=== PATIENT | male | born 1950 | race Caucasian/White ===

== ENCOUNTER 2020-05-06 08:14 | Inpatient (IN) ==
[2020-05-06] MEDS ORDERED: IOPAMIDOL 100 ML BOTTLE IV ONE (08:15)
[2020-05-06] MEDS ORDERED: IPRATROPIUM/ALBUTEROL 3 ML AMPUL.NEB NEB ONE (08:22)
--- NOTE | 2020-05-06 08:28 | Emergency Department Note ---
SOB HPI General Chief Complaint: Shortness of Breath/Dyspnea Stated Complaint: shortness of breath Time Seen by Provider: 05/06/20 08:21 Source: EMS Mode of arrival: EMS Limitations: no limitations History of Present Illness HPI Narrative: Narrative: 70-year-old male with COPD as well as spicules in his lung as well as neoplasms and restrictive lung disease presents the emergency department for shortness of breath. Said he did have a mild fever. He states that this is been going on for couple days slowly been getting worse. He is normally always on 6 L of oxygen nasal cannula and at night he goes to 8 L. He is told that he is not allowed to use COPD secondary to previously had one which caused a pneumothorax so due to his lung disease they are recommending against CPAP or BiPAP. Patient says that he also does not want to be intubated either. Patient by EMS was given albuterol treatment was doing better with that when they originally showed up they said he was 70% on his baseline which is at 6 L. They increased him to a nonrebreather and he was back to 90%. Patient said he normally is around 90 to 92% at baseline. He otherwise has no other complaints at this time said no cough congestion he has no chest pain just feels that he cannot catch his breath. Related Data Home Medications Medication Instructions Recorded Confirmed nitroglycerin 0.4 mg sublingual 0.4 mg SUBLINGUAL DIRECTED tab 12/20/18 04/23/20 tablet vitamin B complex 1 tab PO DIRECTED tab 12/20/18 04/23/20 ibuprofen 200 mg tablet 200 mg PO QDAY PRN tab 10/11/19 04/23/20 aspirin 81 mg tablet,delayed 81 mg PO BID tab 04/15/20 04/23/20 release Previous Rx's Medication Instructions Recorded Oxygen cylinder #1 ea 02/03/18 budesonide 0.5 mg/2 mL suspension 0.5 mg INHALATION BID #120 ml 07/28/19 for nebulization amlodipine 5 mg tablet See Rx Instructions .ROUTE 03/04/20 .COMPLEX #90 tab zolpidem 10 mg tablet 10 mg PO QHS PRN #30 tab 04/04/20 loperamide 2 mg tablet 2 mg PO Q6H PRN #60 tab 04/23/20 atenolol 100 mg tablet 50 mg PO BID #180 tab 04/29/20 atorvastatin 20 mg tablet 20 mg PO QHS #90 tab 04/29/20 losartan 100 mg tablet 100 mg PO QDAY #90 tab 04/30/20 umeclidinium 62.5 mcg-vilanterol 1 inh INHALATION QDAY #60 each 04/30/20 25 mcg/actuation powdr for inhalation Allergies Allergy/AdvReac Type Severity Reaction Status Date / Time No Known Drug Allergies Allergy Verified 04/23/20 09:46 Review of Systems ROS ROS Narrative: Narrative: All systems ED: reviewed and negative except as stated. PFSH Narrative Patient History Narrative: Narrative: Medical/Surgical/Family History All Active Problems (Updated 05/06/20 @ 08:28 by Александр Ruggiero DO) Diarrhea (Acute) Acute dyspnea (Acute) History of left hip replacement (Acute) History of surgery (Chronic) Pre-op examination (Acute) H/O hernia repair (Acute ~1957) History of tonsillectomy (Acute ~1956) Pneumothorax (Acute) Myocardial infarction (Chronic) Chronic respiratory insufficiency (Chronic) Pulmonary nodule (Chronic) Restrictive lung disease (Chronic) MRI of brain abnormal (Chronic) Hyperlipidemia (Chronic) Proteinuria (Chronic) Microalbuminuria (Chronic) Insomnia (Chronic) Right shoulder strain (Chronic) Hemorrhoids (Chronic) Smoker (Chronic) Bronchitis (Chronic) Lumbar back pain (Chronic) Malignant neoplasm of upper lobe, right bronchus or lung (Chronic) Actinic keratosis (Chronic) Impaired oxygenation (Chronic) COPD, severe (Chronic) Pain in left hip (Chronic) Diverticulosis of colon (without mention of hemorrhage) (Chronic) Adenomatous colon polyp (Chronic) Skin lesion (Chronic) Hypoxemia (Chronic) Asbestosis (Chronic) Asbestos exposure (Chronic) Right shoulder injury (Chronic 10/20/11) Metabolic syndrome (Chronic) CAD (coronary artery disease) (Chronic ~1995) History of myocardial infarction (Chronic) COPD (chronic obstructive pulmonary disease) (Chronic) Malignant neoplasm of upper lobe of right lung (Chronic) COPD with chronic bronchitis (Chronic) Medical History Actinic keratosis (Chronic) Adenomatous colon polyp (Chronic) Asbestos exposure (Chronic) Asbestosis (Chronic) Bronchitis (Chronic) CAD (coronary artery disease) (Chronic ~1995) Chronic respiratory insufficiency (Chronic) COPD (chronic obstructive pulmonary disease) (Chronic) COPD with chronic bronchitis (Chronic) COPD, severe (Chronic) Diverticulosis of colon (without mention of hemorrhage) (Chronic) Hemorrhoids (Chronic) High blood pressure (Chronic) History of myocardial infarction (Chronic) Hyperlipidemia (Chronic) Hypoxemia (Chronic) Impaired oxygenation (Chronic) Insomnia (Chronic) Lumbar back pain (Chronic) Malignant neoplasm of upper lobe of right lung (Chronic) Malignant neoplasm of upper lobe, right bronchus or lung (Chronic) Metabolic syndrome (Chronic) Microalbuminuria (Chronic) MRI of brain abnormal (Chronic) Myocardial infarction (Chronic) Oxygen dependent (Chronic) Pain in left hip (Chronic) Pneumonia (Resolved) Proteinuria (Chronic) Pulmonary nodule (Chronic) Restrictive lung disease (Chronic) Right shoulder injury (Chronic 10/20/11) full thickness tear Right shoulder strain (Chronic) Skin lesion (Chronic) Sleep apnea (Chronic) Smoker (Chronic) Surgical History H/O hernia repair (Acute ~1957) H/O repair of left rotator cuff (Resolved) H/O repair of right rotator cuff (Resolved) History of colonoscopy (Chronic 02/24/11) History of coronary artery stent placement (Chronic ~1995) right History of lobectomy of lung (Chronic ~05/2016) right side History of surgery (Chronic) Thoracoscopic apical bleb resection and talc pleurodesis - Dr. Anish Zepeda History of tonsillectomy (Acute ~1956) Hx of appendectomy (Resolved) Family History Mother , age 90-Dementia No problems noted. Social History Smoking Status: Light tobacco smoker Alcohol Intake Frequency: 0-2 drinks per day Substance Use: does not use Exam Narrative Narrative: Narrative: Vital signs noted General: Awake. Alert. No distress. Skin: Warm. Dry. No rash. HEENT: NCAT. PERRL. EOMI. No conjunctivitis. No nystagmus. No pharyngitis. Membranes moist. No otitis. No rhinitis. Neck: No PTP. Good ROM. No meningeal signs. No stridor. No thyromegaly. No JVD. Cardiovascular: RRR. No murmur. No rubs. No gallops. Respiratory: Mild respiratory distress diminished breath sounds bilaterally with wheezes throughout. Very diminished. Gastrointestinal: Abdomen soft. No tenderness. No distention. Normal bowel sounds. No palpable organomegaly or masses. Back: No deformity. No CVAT. Musculoskeletal: No tenderness. No swelling. No erythema. No edema. Good pe ripheral pulses x 4 Lymphatic: No palpable adenopathy. Neurological: No focal neurological deficits observed. General Limitations: no limitations Course Vital Signs Vital signs: Vital Signs Temperature 98.2 F 05/06/20 08:16 Pulse Rate 97 H 05/06/20 08:16 Respiratory Rate 40 H 05/06/20 08:16 Blood Pressure 124/70 05/06/20 08:16 Pulse Oximetry (%) 68 L 05/06/20 08:16 Temperature 98.2 F 05/06/20 08:16 Pulse Rate 97 H 05/06/20 08:16 Respiratory Rate 40 H 05/06/20 08:16 Blood Pressure 124/70 05/06/20 08:16 Pulse Oximetry (%) 79 L 05/06/20 08:21 MDM MDM Narrative Medical decision making narrative: Narrative: Patient most likely has COPD exacerbation I believe. He was down to 60% while getting up off the bed I did attempt to try his baseline he did not do well with that but we did place him on an oxygen mask 8 L and since that he has been all the way now to 88% which is probably baseline for him. I will give him 3 DuoNeb treatments they gave 1 albuterol in route. EKG was done has no acute findings. We will get basic labs as well we will look for pneumonia as well as do a Silvia test to check for COVID-19. I did reaffirm with the patient that he is a DO NOT INTUBATE and he also is not allowed to do CPAP or BiPAP for respiratory distress because it will cause pneumothorax. This was confirmed with patient so the only way now we troll this is despite increasing his oxygen with. Disposition will be pending results. Patient will be signed out to the daytime physician at the end of my shift so please refer to their note for further plan and disposition. Patient stable at time of signout. EKG Data EKG #1: EKG results narrative: EKG done at 0 820 interpreted by myself shows sinus rhythm 4. Is no acute ST changes no acute T wave changes no other signs of ischemia. No signs of hypertrophy, heart strain, heart block. No WPW/Brugada/HOCM. This is a poor EKG secondary to artifact but I do not see any ischemia. Discharge Plan Patient/Caregiver Discharge Instructions Pt seen by CONCESSIONIST/PA only: No Clinical Impression: Acute dyspnea Patient Disposition: Still a Patient Follow up with: Irish Garcia ARNP [Primary Care Provider] - Prescriptions: No Action loperamide [Imodium A-D] 2 mg tablet 2 mg PO Q6H PRN (Reason: loose stool) Qty: 60 RF: 0 (DME) Oxygen cylinder Qty: 1 RF: 12 budesonide 0.5 mg/2 mL suspension for nebulization 0.5 mg INHALATION BID Qty: 120 RF: 12 amlodipine 5 mg tablet See Rx Instructions .ROUTE .COMPLEX Qty: 90 RF: 1 zolpidem [Ambien] 10 mg tablet 10 mg PO QHS PRN (Reason: sleep) Qty: 30 RF: 2 atorvastatin 20 mg tablet 20 mg PO QHS Qty: 90 RF: 3 atenolol 100 mg tablet 50 mg PO BID Qty: 180 RF: 4 losartan 100 mg tablet 100 mg PO QDAY Qty: 90 RF: 4 umeclidinium 62.5 mcg-vilanterol 25 mcg/actuation powdr for inhalation 62.5-25 mcg/actuation blister with device 1 inh inhalation QDAY Qty: 60 RF: 3 vitamin B complex tablet 1 tab PO DIRECTED RF: 0 nitroglycerin [Nitrostat] 0.4 mg tablet, sublingual 0.4 mg SUBLINGUAL DIRECTED RF: 0 aspirin [Adult Low Dose Aspirin] 81 mg tablet,delayed release (DR/EC) 81 mg PO BID RF: 0 ibuprofen 200 mg tablet 200 mg PO QDAY PRNRF: 0
--- NOTE | 2020-05-06 09:06 | XRay Report ---
CLINICAL INFORMATION: dyspnea COMPARISON: 05/03/2019 FINDINGS: Moderate cardiomegaly is unchanged. Mediastinum and pulmonary vessels are normal. Large alveolar infiltrates in both mid and lower lungs are superimposed upon known underlying interstitial fibrosis. COPD changes with large bullae in the apical regions seen as before. Moderate right apical pleural fibrosis is again seen. There are small bilateral pleural effusions. Bilateral diaphragmatic calcifications noted. IMPRESSION: Large alveolar infiltrates in both mid/lower lungs superimposed upon known underlying moderate interstitial fibrosis and COPD. Small bilateral pleural effusions. Interpreted and Authenticated by: Ousmane Shields 05/06/20
[2020-05-06 09:13] LABS: Basophils # (Auto) 0.06 K/mcL (0.00-0.20); Basophils % (Auto) 0.6 % (0.0-2.0); Eosinophils # (Auto) 0.62 K/mcL (0.00-0.70); Eosinophils % (Auto) 5.7 % (0.0-7.0); Hematocrit 39.4 % (41.0-55.0); Hemoglobin 11.9 g/dL (13.5-16.5); Lymphocytes # (Auto) 0.92 K/mcL (1.50-4.80); Lymphocytes % (Auto) 8.5 % (15.0-49.0); Mean Cell Volume 96.8 fL (80.0-100.0); Mean Corpuscular HGB Conc 30.2 g/dL (31.0-36.0); Mean Platelet Volume 10.2 fL (7.4-10.4); Monocytes # (Auto) 0.83 K/mcL (0.10-0.90); Monocytes % (Auto) 7.6 % (1.0-12.0); Neutrophils % (Auto) 77.6 % (38.0-78.0); Platelet Count 326 K/mcL (140-440); RBC 4.07 M/mcL (4.50-5.90); Red Cell Distribution Width 13.9 % (11.5-14.5); WBC 10.9 K/mcL (4.5-11.0)
[2020-05-06 09:35] LABS: proBNP 348.9 pg/mL (<125.0)
[2020-05-06 09:39] LABS: ALT/SGPT 11 U/L (<40); AST/SGOT 21 U/L (<40); Albumin 3.2 gm/dL (3.2-5.2); Albumin/Globulin Ratio 0.7 (1.0-2.3); Alkaline Phosphatase 105 U/L (39-117); Bilirubin,Total 0.3 mg/dL (0.1-1.0); Blood Urea Nitrogen 23 mg/dL (8-23); Calcium 8.9 mg/dL (8.6-10.4); Carbon Dioxide 28 mmol/L (22-30); Chloride 100 mmol/L (96-108); Globulin 4.5 gm/dL (2.2-3.7); Glomerular Filtration Rate 76; Glucose 136 mg/dL (70-105)
[2020-05-06] MEDS ORDERED: AZITHROMYCIN 500 MG in DEXTROSE 5% IN WATER 250 ML IV ONE (10:00)
[2020-05-06] MEDS ORDERED: cefTRIAXone 2 GM in DEXTROSE 5% IN WATER 50 ML IV ONE (10:00)
--- NOTE | 2020-05-06 12:00 | Cat Scan Report ---
CLINICAL INFORMATION: Short of breath COMPARISON: None. TECHNIQUE: 80ml of Isovue-370 were injected intravenously. Using SmartPrep to maximize pulmonary artery opacification, .625mm helical slices were obtained from the lung apices through the lung bases. Following reconstruction, 2.5 mm sagittal, coronal, and axial reformations were processed. The exam was reviewed at mediastinal, lung, and bone windows. The exam was performed using radiation dose optimization techniques including, but not limited to, automated exposure control, adjustment of the mA and/or kV according to patient size and use of iterative reconstruction technique. FINDINGS: Mediastinal windows show the pulmonary arteries opacified - no evidence of embolus. The main pulmonary diameter is enlarged 3.3 cm suggesting mild pulmonary hypertension. The thoracic aorta is normal diameter with diffuse intimal thickening. The heart is moderately enlarged with scattered fibrofatty and calcific plaque in the coronary arteries. Esophagus is grossly normal. There are multiple moderately enlarged mediastinal lymph nodes including the inferior paraesophageal, subcarinal precarinal, AP window and peritracheal regions. They range up to 2.7 cm. Thyroid is mildly enlarged and inhomogeneous. Pulmonary parenchymal windows show moderate centrilobular and periseptal emphysema featuring chronic bronchitis with elevated lung volumes and dilatation/ wall thickening the bronchi including tubular and varicose bronchiectasis of the segmental and subsegmental bronchi throughout the lungs. A giant basilar bullae dominating the left lung apex. There are cluster of 4-5 bullae in the posterior left upper lobe ranging up to 6.1 cm. In addition, there are scattered regions of honeycombing fibrosis the periphery of both upper right middle and lower lobes. There is also moderate groundglass airspace disease throughout both lungs with denser alveolar infiltrates in the superior segment of the left lower lobe in the posterior segment of the left upper lobe. Scattered pleural calcifications noted. No effusions. Bones and soft tissues the chest wall show a moderate degenerative disc disease mid thoracic spine. Images should the superior abdomen show no abnormality. IMPRESSION: 1. No evidence of pulmonary embolus. 2. Moderate centrilobular and paraseptal emphysema. In addition to chronic bronchitis component, there are multiple tubular and varicose bronchiectatic segmental and subsegmental bronchi in both lungs - most prominent in both lower and right middle lobes. 3. Scattered regions of honeycombing in the periphery of both upper, right middle and lower lobes suggesting superimposed UIP. 4. Moderate alveolar infiltrates in the posterior segment left upper lobe and superior segment left lower lobe. Diffuse groundglass airspace disease is seen throughout both lungs with sparing of the right lung apex. This is likely infectious or inflammatory - chronicity unknown. 5. Moderate mediastinal and hilar adenopathy. These are likely reactive lymph nodes from lung inflammation Interpreted and Authenticated by: Ousmane Shields 05/06/20
--- NOTE | 2020-05-06 12:58 | Internal Med History&Physical ---
HPI History of Present Illness Patient information: Note initiated : 05/06/20 at 12:58 pm Service Date, if different from initiated Date: [] Patient: Jed Dias a 70 y/o M admitted on for SOB . Chief Complaint: Worsening shortness of breath and low oxygen History of present illness: Mr. Dias is a 70 year old M with a history of bullous emphysema managed by pulmonology Dr. Hays usually on 3 L oxygen who recently had a complicated hospitalization in February following a hip fracture and was hospitalized for 19 days recovering from pulmonary complications. He was discharged and has gradually been recovering until last evening started getting short of breath. His sats started dropping to 70s. He increased his oxygen to 6 L. This morning despite 160s oxygen his sats was in 60s and thereafter presents to the ER for evaluation. Initial work-up was consistent with acute COPD exacerbation and requiring 2 L oxygen to maintain sats. Patient deferred that due to bullous emphysema he would not want to be intubated or expose noninvasive ventilation due to risk of pneumothorax. He however wants medical management. Patient was started on antibiotic/steroid subsequently hospitalist service was consulted At the time of my evaluation patient is alert and oriented. He was able to answer most the questions. Endorses to history as above. Denies recent exposure to sick contacts including Covid. His Covid test today was negative.He denies fever, chills, diarrhea, rash, joint pain, myalgia, headache or photophobia. He endorses feeling productive sputum increasing purulence with cough, complains of difficulty voiding urine Review of systems A 10 point review system was performed and is negative except for ones discussed above PFSH PFSH All Active Problems (Updated 05/06/20 @ 13:02 by Bi Vela MD) Pneumonia (Acute) Diarrhea (Acute) Acute dyspnea (Acute) History of left hip replacement (Acute) History of surgery (Chronic) Pre-op examination (Acute) H/O hernia repair (Acute ~1957) History of tonsillectomy (Acute ~1956) Pneumothorax (Acute) Myocardial infarction (Chronic) Chronic respiratory insufficiency (Chronic) Pulmonary nodule (Chronic) Restrictive lung disease (Chronic) MRI of brain abnormal (Chronic) Hyperlipidemia (Chronic) Proteinuria (Chronic) Microalbuminuria (Chronic) Insomnia (Chronic) Right shoulder strain (Chronic) Hemorrhoids (Chronic) Smoker (Chronic) Bronchitis (Chronic) Lumbar back pain (Chronic) Malignant neoplasm of upper lobe, right bronchus or lung (Chronic) Actinic keratosis (Chronic) Impaired oxygenation (Chronic) COPD, severe (Chronic) Pain in left hip (Chronic) Diverticulosis of colon (without mention of hemorrhage) (Chronic) Adenomatous colon polyp (Chronic) Skin lesion (Chronic) Hypoxemia (Chronic) Asbestosis (Chronic) Asbestos exposure (Chronic) Right shoulder injury (Chronic 10/20/11) Metabolic syndrome (Chronic) CAD (coronary artery disease) (Chronic ~1995) History of myocardial infarction (Chronic) COPD (chronic obstructive pulmonary disease) (Chronic) Malignant neoplasm of upper lobe of right lung (Chronic) COPD with chronic bronchitis (Chronic) Medical History Actinic keratosis (Chronic) Adenomatous colon polyp (Chronic) Asbestos exposure (Chronic) Asbestosis (Chronic) Bronchitis (Chronic) CAD (coronary artery disease) (Chronic ~1995) Chronic respiratory insufficiency (Chronic) COPD (chronic obstructive pulmonary disease) (Chronic) COPD with chronic bronchitis (Chronic) COPD, severe (Chronic) Diverticulosis of colon (without mention of hemorrhage) (Chronic) Hemorrhoids (Chronic) High blood pressure (Chronic) History of myocardial infarction (Chronic) Hyperlipidemia (Chronic) Hypoxemia (Chronic) Impaired oxygenation (Chronic) Insomnia (Chronic) Lumbar back pain (Chronic) Malignant neoplasm of upper lobe of right lung (Chronic) Malignant neoplasm of upper lobe, right bronchus or lung (Chronic) Metabolic syndrome (Chronic) Microalbuminuria (Chronic) MRI of brain abnormal (Chronic) Myocardial infarction (Chronic) Oxygen dependent (Chronic) Pain in left hip (Chronic) Pneumonia (Resolved) Proteinuria (Chronic) Pulmonary nodule (Chronic) Restrictive lung disease (Chronic) Right shoulder injury (Chronic 10/20/11) full thickness tear Right shoulder strain (Chronic) Skin lesion (Chronic) Sleep apnea (Chronic) Smoker (Chronic) Surgical History H/O hernia repair (Acute ~1957) H/O repair of left rotator cuff (Resolved) H/O repair of right rotator cuff (Resolved) History of colonoscopy (Chronic 02/24/11) History of coronary artery stent placement (Chronic ~1995) right History of lobectomy of lung (Chronic ~05/2016) right side History of surgery (Chronic) Thoracoscopic apical bleb resection and talc pleurodesis - Dr. Anish Zepeda History of tonsillectomy (Acute ~1957) Hx of appendectomy (Resolved) Family History Mother , age 90-Dementia No problems noted. Social History household members: alone marital status: single occupational status: retired occupation: [employer] physical activity: none smoking status: Former smoker quit date: 04/26/15 alcohol intake frequency: 0-2 drinks per day substance use type: does not use seatbelt use: always MEDS/ALLERGIES Home Medications and Allergies Home Medications Medication Instructions Recorded Confirmed Type Oxygen cylinder #1 ea 02/03/18 05/06/20 Rx nitroglycerin 0.4 mg sublingual 0.4 mg SUBLINGUAL DIRECTED tab 12/20/18 05/06/20 History tablet vitamin B complex 1 tab PO DAILY tab 12/20/18 05/06/20 History budesonide 0.5 mg/2 mL suspension 0.5 mg INHALATION BID #120 ml 07/28/19 05/06/20 Rx for nebulization ibuprofen 200 mg tablet 200 mg PO QDP PRN tab 10/11/19 05/06/20 History zolpidem 10 mg tablet 10 mg PO QHS PRN #30 tab 04/04/20 05/06/20 Rx aspirin 81 mg tablet,delayed 81 mg PO BID tab 04/15/20 05/06/20 History release loperamide 2 mg tablet 2 mg PO Q6H PRN #60 tab 04/23/20 05/06/20 Rx atenolol 100 mg tablet 50 mg PO BID #180 tab 04/29/20 05/06/20 Rx atorvastatin 20 mg tablet 20 mg PO QHS #90 tab 04/29/20 05/06/20 Rx amlodipine 5 mg PO QAM 05/06/20 05/06/20 History hydrocodone-acetaminophen 1 tab PO Q4-6HP PRN 05/06/20 05/06/20 History losartan 100 mg PO QAM 05/06/20 05/06/20 History umeclidinium-vilanterol [Anoro 1 inh INHALATION QAM 05/06/20 05/06/20 History Ellipta] Allergies Allergy/AdvReac Type Severity Reaction Status Date / Time No Known Drug Allergies Allergy Verified 04/23/20 09:46 EXAM Constitutional Vitals: Temp Pulse Resp BP Pulse Ox 98.2 F 83 27 H 103/52 94 05/06/20 08:16 05/06/20 12:44 05/06/20 12:44 05/06/20 12:31 05/06/20 12:44 Anxious currently on 12 L oxygen oxygen mask Head normocephalic Oral cavity moist No ear nose discharge Eye movement symmetrical Neck supple no lymphadenopathy S1-S2 tachycardia Labored breathing Nondistended nontender abdomen Lower extremity no cyanosis clubbing or joint swelling Skin no suspicious lesion Psych anxious but alert cooperative Neuro normal higher function DATA Data Completed and Pending Labs: Labs from last 24 hours 05/06/20 05/06/20 05/06/20 10:17 08:22 08:22 WBC RBC Hgb Hct MCV MCH MCHC RDW Plt Count MPV Neut % (Auto) Lymph % (Auto) Isabela % (Auto) Eos % (Auto) Baso % (Auto) Lymph # (Auto) Isabel[place] # (Auto) Eos # (Auto) Baso # (Auto) Absolute Neutrophils D-Dimer VBG Lactic Acid 1.2 Sodium Potassium Chloride Carbon Dioxide Anion Gap BUN Creatinine GFR Calculation Glucose Calcium Total Bilirubin AST ALT Alkaline Phosphatase Troponin T < 0.01 NT-Pro-B Natriuret Pep Total Protein Albumin Globulin Albumin/Globulin Ratio Procalcitonin 0.07 05/06/20 05/06/20 05/06/20 08:22 08:22 08:22 WBC 10.9 RBC 4.07 L Hgb 11.9 L Hct 39.4 L MCV 96.8 MCH 29.2 MCHC 30.2 L RDW 13.9 Plt Count 326 MPV 10.2 Neut % (Auto) 77.6 Lymph % (Auto) 8.5 L Isabela % (Auto) 7.6 Eos % (Auto) 5.7 Baso % (Auto) 0.6 Lymph # (Auto) 0.92 L [place] # (Auto) 0.83 Eos # (Auto) 0.62 Baso # (Auto) 0.06 Absolute Neutrophils 8.44 H D-Dimer 2.36 H VBG Lactic Acid Sodium 140 Potassium 4.8 Chloride 100 Carbon Dioxide 28 Anion Gap 12.0 BUN 23 Creatinine 1.0 GFR Calculation 76 Glucose 136 H Calcium 8.9 Total Bilirubin 0.3 AST 21 ALT 11 Alkaline Phosphatase 105 Troponin T NT-Pro-B Natriuret Pep 348.9 H Total Protein 7.7 Albumin 3.2 Globulin 4.5 H Albumin/Globulin Ratio 0.7 L Procalcitonin A/P Narrative A/P Narrative: * Acute hypoxic respiratory failure-currently on 12 L oxygen. large AA gradient. Patient maintains a DNR status and would not want intubation or noninvasive ventilation.Continue pulmonary toilet/supplemental oxygen * Multifocal pneumonia start antibiotic coverage. COVID-19 negative * Acute exacerbation of COPD-continue steroids and bronchodilators * Hypertension continue atenolol/losartan/amlodipine * Degenerative joint disease continue hydrocodone * Hyperlipidemia continue statin * Urinary retention-Conway's catheter if indicated * DNR * Prophylaxis Heparin Plan * PCU admission * Serial blood gas/chest imaging * Supplemental oxygen/noninvasive ventilation if tolerated * Antibiotic coverage * Pre-existing medical condition management home meds * Patient critically ill with [place] 2 score over 16 indicating high risk mortality Time Spent With Patient Time: Total time spent is greater than 50% in coordination of care (as documented) at patient's floor/unit and/or counseling patient: Critical care time spent over 35 minutes
--- NOTE | 2020-05-06 13:02 | Emergency Department Note ---
SOB HPI General Chief Complaint: Shortness of Breath/Dyspnea Stated Complaint: shortness of breath Time Seen by Provider: 05/06/20 08:21 Source: EMS Mode of arrival: EMS Limitations: no limitations History of Present Illness HPI Narrative: Narrative: I took over care of this patient from Dr. Ruggiero at 9 AM. Related Data Home Medications Medication Instructions Recorded Confirmed nitroglycerin 0.4 mg sublingual 0.4 mg SUBLINGUAL DIRECTED tab 12/20/18 05/06/20 tablet vitamin B complex 1 tab PO DIRECTED tab 12/20/18 04/23/20 ibuprofen 200 mg tablet 200 mg PO QDAY PRN tab 10/11/19 04/23/20 aspirin 81 mg tablet,delayed 81 mg PO BID tab 04/15/20 04/23/20 release amlodipine 5 mg PO QAM 05/06/20 05/06/20 fluticasone propionate 1 spray INTRANASAL QDAY 05/06/20 05/06/20 hydrocodone-acetaminophen 1 tab PO Q4-6HP PRN 05/06/20 05/06/20 losartan 100 mg PO QAM 05/06/20 05/06/20 umeclidinium-vilanterol [Anoro 1 inh INHALATION QAM 05/06/20 05/06/20 Ellipta] Previous Rx's Medication Instructions Recorded Oxygen cylinder #1 ea 02/03/18 budesonide 0.5 mg/2 mL suspension 0.5 mg INHALATION BID #120 ml 07/28/19 for nebulization zolpidem 10 mg tablet 10 mg PO QHS PRN #30 tab 04/04/20 loperamide 2 mg tablet 2 mg PO Q6H PRN #60 tab 04/23/20 atenolol 100 mg tablet 50 mg PO BID #180 tab 04/29/20 atorvastatin 20 mg tablet 20 mg PO QHS #90 tab 04/29/20 Allergies Allergy/AdvReac Type Severity Reaction Status Date / Time No Known Drug Allergies Allergy Verified 04/23/20 09:46 Review of Systems ROS ROS Narrative: Narrative: PFSH Narrative Patient History Narrative: Narrative: Medical/Surgical/Family History All Active Problems (Updated 05/06/20 @ 13:02 by Bi Vela MD) Pneumonia (Acute) Diarrhea (Acute) Acute dyspnea (Acute) History of left hip replacement (Acute) History of surgery (Chronic) Pre-op examination (Acute) H/O hernia repair (Acute ~1957) History of tonsillectomy (Acute ~1956) Pneumothorax (Acute) Myocardial infarction (Chronic) Chronic respiratory insufficiency (Chronic) Pulmonary nodule (Chronic) Restrictive lung disease (Chronic) MRI of brain abnormal (Chronic) Hyperlipidemia (Chronic) Proteinuria (Chronic) Microalbuminuria (Chronic) Insomnia (Chronic) Right shoulder strain (Chronic) Hemorrhoids (Chronic) Smoker (Chronic) Bronchitis (Chronic) Lumbar back pain (Chronic) Malignant neoplasm of upper lobe, right bronchus or lung (Chronic) Actinic keratosis (Chronic) Impaired oxygenation (Chronic) COPD, severe (Chronic) Pain in left hip (Chronic) Diverticulosis of colon (without mention of hemorrhage) (Chronic) Adenomatous colon polyp (Chronic) Skin lesion (Chronic) Hypoxemia (Chronic) Asbestosis (Chronic) Asbestos exposure (Chronic) Right shoulder injury (Chronic 10/20/11) Metabolic syndrome (Chronic) CAD (coronary artery disease) (Chronic ~1995) History of myocardial infarction (Chronic) COPD (chronic obstructive pulmonary disease) (Chronic) Malignant neoplasm of upper lobe of right lung (Chronic) COPD with chronic bronchitis (Chronic) Medical History Actinic keratosis (Chronic) Adenomatous colon polyp (Chronic) Asbestos exposure (Chronic) Asbestosis (Chronic) Bronchitis (Chronic) CAD (coronary artery disease) (Chronic ~1995) Chronic respiratory insufficiency (Chronic) COPD (chronic obstructive pulmonary disease) (Chronic) COPD with chronic bronchitis (Chronic) COPD, severe (Chronic) Diverticulosis of colon (without mention of hemorrhage) (Chronic) Hemorrhoids (Chronic) High blood pressure (Chronic) History of myocardial infarction (Chronic) Hyperlipidemia (Chronic) Hypoxemia (Chronic) Impaired oxygenation (Chronic) Insomnia (Chronic) Lumbar back pain (Chronic) Malignant neoplasm of upper lobe of right lung (Chronic) Malignant neoplasm of upper lobe, right bronchus or lung (Chronic) Metabolic syndrome (Chronic) Microalbuminuria (Chronic) MRI of brain abnormal (Chronic) Myocardial infarction (Chronic) Oxygen dependent (Chronic) Pain in left hip (Chronic) Pneumonia (Resolved) Proteinuria (Chronic) Pulmonary nodule (Chronic) Restrictive lung disease (Chronic) Right shoulder injury (Chronic 10/20/11) full thickness tear Right shoulder strain (Chronic) Skin lesion (Chronic) Sleep apnea (Chronic) Smoker (Chronic) Surgical History H/O hernia repair (Acute ~1957) H/O repair of left rotator cuff (Resolved) H/O repair of right rotator cuff (Resolved) History of colonoscopy (Chronic 02/24/11) History of coronary artery stent placement (Chronic ~1995) right History of lobectomy of lung (Chronic ~05/2016) right side History of surgery (Chronic) Thoracoscopic apical bleb resection and talc pleurodesis - Dr. Anish Zepeda History of tonsillectomy (Acute ~1956) Hx of appendectomy (Resolved) Family History Mother , age 90-Dementia No problems noted. Social History Smoking Status: Light tobacco smoker Alcohol Intake Frequency: 0-2 drinks per day Substance Use: does not use Exam Narrative Narrative: Narrative: General Limitations: no limitations Course Vital Signs Vital signs: Vital Signs Temperature 98.2 F 05/06/20 08:16 Pulse Rate 97 H 05/06/20 08:16 Respiratory Rate 40 H 05/06/20 08:16 Blood Pressure 124/70 05/06/20 08:16 Pulse Oximetry (%) 68 L 05/06/20 08:16 Temperature 98.2 F 05/06/20 08:16 Pulse Rate 83 05/06/20 12:44 Respiratory Rate 27 H 05/06/20 12:44 Blood Pressure 103/52 05/06/20 12:31 Pulse Oximetry (%) 94 05/06/20 12:44 MDM MDM Narrative Medical decision making narrative: Narrative: Patient was cultured and given Rocephin and Zithromax for his pneumonia. On 12 L by facemask he is at about 96% O2 saturation. The patient has requested not to be intubated and not to be placed on BiPAP or CPAP. Apparently it is risky for causing pneumothorax to do that. Patient will be admitted to the hospital by Dr. Pruett. Lab Data Lab results reviewed: Yes I reviewed the patient's lab results. Lab results narrative: Lab work was unremarkable Result diagrams: 05/06/20 08:22 05/06/20 08:22 Labs: Lab Results 05/06/20 05/06/20 05/06/20 Range/Units 08:22 08:22 08:22 WBC 10.9 (4.5-11.0) K/mcL RBC 4.07 L (4.50-5.90) M/mcL Hgb 11.9 L (13.5-16.5) g/dL Hct 39.4 L (41.0-55.0) % MCV 96.8 (80.0-100.0) fL MCH 29.2 (26.0-34.0) pg MCHC 30.2 L (31.0-36.0) g/dL RDW 13.9 (11.5-14.5) % Plt Count 326 (140-440) K/mcL MPV 10.2 (7.4-10.4) fL Neut % (Auto) 77.6 (38.0-78.0) % Lymph % (Auto) 8.5 L (15.0-49.0) % [place] % (Auto) 7.6 (1.0-12.0) % Eos % (Auto) 5.7 (0.0-7.0) % Baso % (Auto) 0.6 (0.0-2.0) % Lymph # (Auto) 0.92 L (1.50-4.80) K/mcL [place] # (Auto) 0.83 (0.10-0.90) K/mcL Eos # (Auto) 0.62 (0.00-0.70) K/mcL Baso # (Auto) 0.06 (0.00-0.20) K/mcL Absolute Neutrophils 8.44 H (1.80-8.00) K/mcL D-Dimer 2.36 H (0.27-0.50) ug/mL VBG Lactic Acid (0.5-2.0) mmol/L Sodium 140 (133-145) mmol/L Potassium 4.8 (3.3-5.1) mmol/L Chloride 100 (96-108) mmol/L Carbon Dioxide 28 (22-30) mmol/L Anion Gap 12.0 (8.0-16.0) BUN 23 (8-23) mg/dL Creatinine 1.0 (0.7-1.2) mg/dL GFR Calculation 76 Glucose 136 H (70-105) mg/dL Calcium 8.9 (8.6-10.4) mg/dL Total Bilirubin 0.3 (0.1-1.0) mg/dL AST 21 (<40) U/L ALT 11 (<40) U/L Alkaline Phosphatase 105 (39-117) U/L Troponin T (<0.03) ng/mL NT-Pro-B Natriuret Pep 348.9 H (<125.0) pg/mL Total Protein 7.7 (5.9-8.4) gm/dL Albumin 3.2 (3.2-5.2) gm/dL Globulin 4.5 H (2.2-3.7) gm/dL Albumin/Globulin Ratio 0.7 L (1.0-2.3) Procalcitonin (<0.10) ng/mL 05/06/20 05/06/20 05/06/20 Range/Units 08:22 08:22 10:17 WBC (4.5-11.0) K/mcL RBC (4.50-5.90) M/mcL Hgb (13.5-16.5) g/dL Hct (41.0-55.0) % MCV (80.0-100.0) fL MCH (26.0-34.0) pg MCHC (31.0-36.0) g/dL RDW (11.5-14.5) % Plt Count (140-440) K/mcL MPV (7.4-10.4) fL Neut % (Auto) (38.0-78.0) % Lymph % (Auto) (15.0-49.0) % [place] % (Auto) (1.0-12.0) % Eos % (Auto) (0.0-7.0) % Baso % (Auto) (0.0-2.0) % Lymph # (Auto) (1.50-4.80) K/mcL [place] # (Auto) (0.10-0.90) K/mcL Eos # (Auto) (0.00-0.70) K/mcL Baso # (Auto) (0.00-0.20) K/mcL Absolute Neutrophils (1.80-8.00) K/mcL D-Dimer (0.27-0.50) ug/mL VBG Lactic Acid 1.2 (0.5-2.0) mmol/L Sodium (133-145) mmol/L Potassium (3.3-5.1) mmol/L Chloride (96-108) mmol/L Carbon Dioxide (22-30) mmol/L Anion Gap (8.0-16.0) BUN (8-23) mg/dL Creatinine (0.7-1.2) mg/dL GFR Calculation Glucose (70-105) mg/dL Calcium (8.6-10.4) mg/dL Total Bilirubin (0.1-1.0) mg/dL AST (<40) U/L ALT (<40) U/L Alkaline Phosphatase (39-117) U/L Troponin T < 0.01 (<0.03) ng/mL NT-Pro-B Natriuret Pep (<125.0) pg/mL Total Protein (5.9-8.4) gm/dL Albumin (3.2-5.2) gm/dL Globulin (2.2-3.7) gm/dL Albumin/Globulin Ratio (1.0-2.3) Procalcitonin 0.07 (<0.10) ng/mL Radiology Data Radiology results reviewed: Yes I reviewed the patient's radiology results. Radiology results narrative: This patient has new developing bilateral infiltrates consistent with pneumonia. Discharge Plan Patient/Caregiver Discharge Instructions Pt seen by TRACTOR TRAILER OPERATOR/PA only: No Clinical Impression: Acute dyspnea, Pneumonia Patient Disposition: Xfer As Inpt ([facility]) Follow up with: Irish Garcia ARNP [Primary Care Provider] - Prescriptions: No Action loperamide [Imodium A-D] 2 mg tablet 2 mg PO Q6H PRN (Reason: loose stool) Qty: 60 RF: 0 (DME) Oxygen cylinder Qty: 1 RF: 12 budesonide 0.5 mg/2 mL suspension for nebulization 0.5 mg INHALATION BID Qty: 120 RF: 12 zolpidem [Ambien] 10 mg tablet 10 mg PO QHS PRN (Reason: sleep) Qty: 30 RF: 2 atorvastatin 20 mg tablet 20 mg PO QHS Qty: 90 RF: 3 atenolol 100 mg tablet 50 mg PO BID Qty: 180 RF: 4 vitamin B complex tablet 1 tab PO DIRECTED RF: 0 nitroglycerin [Nitrostat] 0.4 mg tablet, sublingual 0.4 mg SUBLINGUAL DIRECTED RF: 0 aspirin [Adult Low Dose Aspirin] 81 mg tablet,delayed release (DR/EC) 81 mg PO BID RF: 0 ibuprofen 200 mg tablet 200 mg PO QDAY PRNRF: 0 fluticasone propionate 50 mcg/actuation spray,suspension 1 spray INTRANASAL QDAY RF: 0 hydrocodone-acetaminophen 5-325 mg tablet 1 tab PO Q4-6HP PRN (Reason: Chest Pain) RF: 0 losartan 100 mg tablet 100 mg PO QAM RF: 0 Anoro Ellipta 62.5-25 mcg/actuation blister with device 1 inh INHALATION QAM RF: 0 amlodipine 5 mg tablet 5 mg PO QAM RF: 0
[2020-05-06] MEDS ORDERED: ALBUTEROL SULFATE 200 PUFF INHALER INH PRN (15:04)
[2020-05-06] MEDS ORDERED: HYDROcodone/APAP 5/325MG TABLET PO PRN (15:04)
[2020-05-06] MEDS ORDERED: ACETAMINOPHEN 650 MG/65 ML BAG IV PRN (15:04)
[2020-05-06] MEDS ORDERED: ONDANSETRON 4 MG/2 ML VIAL IV PRN (15:04)
[2020-05-06] MEDS ORDERED: ACETAMINOPHEN 325 MG TABLET PO PRN (15:04)
[2020-05-06] MEDS ORDERED: POTASSIUM CHLORIDE 40 MEQ in DEXTROSE 5% IN WATER 500 ML IV PRN (15:04)
[2020-05-06] MEDS ORDERED: POTASSIUM CHLORIDE 20 MEQ PACKET PO PRN (15:04)
[2020-05-06] MEDS ORDERED: MAGNESIUM SULFATE 2 GM/50 ML BAG IV PRN (15:04)
[2020-05-06] MEDS ORDERED: BISACODYL 10 MG SUPP.RECT PR PRN (15:04)
[2020-05-06] MEDS ORDERED: ONDANSETRON 4 MG ODT TABLET SL PRN (15:04)
[2020-05-06] MEDS ORDERED: POLYETHYLENE GLYCOL 3350 17 GM PACKET PO PRN (15:04)
[2020-05-06] MEDS ORDERED: NITROGLYCERIN 0.4 MG TAB.SUBL SL PRN (15:12)
[2020-05-06] MEDS: 0.9 % SODIUM CHLORIDE 10 ML SYRINGE IV SCH ×2 (16:31→22:12)
[2020-05-06] MEDS: LEVOFLOXACIN 750 MG/150 ML BAG IV SCH (16:33)
[2020-05-06] MEDS: methylPREDNISolone SOD SUCC 125 MG/2 ML VIAL IV SCH (17:47)
[2020-05-06] MEDS ORDERED: MELATONIN 3 MG TABLET PO PRN (21:00)
[2020-05-06] MEDS: ATENOLOL 50 MG TABLET PO SCH (22:08)
[2020-05-06] MEDS: ASPIRIN 81 MG TAB.CHEW PO SCH (22:08)
[2020-05-06] MEDS: ZOLPIDEM 5 MG TABLET PO PRN (22:08)
[2020-05-06] MEDS: MELATONIN 3 MG TABLET PO PRN (22:08)
[2020-05-06] MEDS: SENNOSIDES/DOCUSATE SODIUM 1 TAB TABLET PO SCH (22:09)
[2020-05-06] MEDS: HEPARIN 5,000 UNIT/ML VIAL SQ SCH (22:09)
[2020-05-06] MEDS: DOCUSATE SODIUM 100 MG CAPSULE PO SCH (22:10)
[2020-05-06] MEDS: ATORVASTATIN 20 MG TABLET PO SCH (22:12)
[2020-05-07] MEDS: methylPREDNISolone SOD SUCC 125 MG/2 ML VIAL IV SCH ×4 (00:23→17:36)
[2020-05-07] MEDS: 0.9 % SODIUM CHLORIDE 10 ML SYRINGE IV SCH ×3 (05:53→21:22)
[2020-05-07 06:55] LABS: Basophils # (Auto) 0.01 K/mcL (0.00-0.20); Basophils % (Auto) 0.1 % (0.0-2.0); Eosinophils # (Auto) 0 K/mcL (0.00-0.70); Eosinophils % (Auto) 0 % (0.0-7.0); Hematocrit 40.4 % (41.0-55.0); Hemoglobin 12.1 g/dL (13.5-16.5); Lymphocytes # (Auto) 0.41 K/mcL (1.50-4.80); Lymphocytes % (Auto) 5.4 % (15.0-49.0); Mean Cell Volume 96.2 fL (80.0-100.0); Mean Platelet Volume 10.3 fL (7.4-10.4); Monocytes # (Auto) 0.03 K/mcL (0.10-0.90); Monocytes % (Auto) 0.4 % (1.0-12.0); Neutrophils % (Auto) 94.1 % (38.0-78.0); Platelet Count 315 K/mcL (140-440); Red Cell Distribution Width 13.5 % (11.5-14.5); WBC 7.5 K/mcL (4.5-11.0)
[2020-05-07 07:18] LABS: ALT/SGPT 11 U/L (<40); AST/SGOT 20 U/L (<40); Albumin 3.2 gm/dL (3.2-5.2); Albumin/Globulin Ratio 0.7 (1.0-2.3); Alkaline Phosphatase 102 U/L (39-117); Bilirubin,Direct < 0.2 mg/dL (<0.3); Bilirubin,Total 0.3 mg/dL (0.1-1.0); Blood Urea Nitrogen 19 mg/dL (8-23); Calcium 8.8 mg/dL (8.6-10.4); Carbon Dioxide 30 mmol/L (22-30); Chloride 99 mmol/L (96-108); Globulin 4.7 gm/dL (2.2-3.7); Glomerular Filtration Rate 76; Glucose 137 mg/dL (70-105); Lactate Dehydrogenase 301 U/L (135-225); Phosphorous 3.7 mg/dL (2.5-4.5); Triglycerides 44 mg/dL (<150); Uric Acid 5.6 mg/dL (2.5-8.0)
[2020-05-07] MEDS: LOSARTAN 50 MG TABLET PO SCH (08:12)
[2020-05-07] MEDS: MULTIVIT,THER IRON,CA,FA & MIN 1 TABLET PO SCH (08:12)
[2020-05-07] MEDS: LEVOFLOXACIN 750 MG/150 ML BAG IV SCH (08:12)
[2020-05-07] MEDS: ATENOLOL 50 MG TABLET PO SCH ×2 (08:13→21:21)
[2020-05-07] MEDS: ASPIRIN 81 MG TAB.CHEW PO SCH ×3 (08:13→21:20)
[2020-05-07] MEDS: amLODIPine 5 MG TABLET PO SCH (08:13)
[2020-05-07] MEDS: HEPARIN 5,000 UNIT/ML VIAL SQ SCH ×2 (08:13→21:21)
[2020-05-07] MEDS: DOCUSATE SODIUM 100 MG CAPSULE PO SCH ×2 (08:23→21:19)
[2020-05-07] MEDS ORDERED: TIOTROPIUM BROMIDE 18 MCG INHALANT INH SCH (09:00)
[2020-05-07] MEDS ORDERED: FLUTICASONE PROPIONATE SPRAY.NAS NS SCH (09:00)
--- NOTE | 2020-05-07 09:10 | Internal Med Progress Note ---
SUBJECTIVE Subjective Patient information: Note initiated : 05/07/20 at 9:06 am Service Date, if different from initiated Date: [] Patient: Jed Dias 70 y/o M admitted on 05/06/20 for SOB . Chief Complaint: [] Interval history: Mr. Dias is a 70 year old M with a history of bullous emphysema managed by pulmonology Dr. Hays usually on 3 L oxygen who recently had a complicated hospitalization in February following a hip fracture and was hospitalized for 19 days recovering from pulmonary complications. He was discharged and has gradually been recovering until last evening started getting short of breath. His sats started dropping to 70s. He increased his oxygen to 6 L. This morning despite 160s oxygen his sats was in 60s and thereafter presents to the ER for evaluation. Initial work-up was consistent with acute COPD exacerbation and requiring 2 L oxygen to maintain sats. Patient deferred that due to bullous emphysema he would not want to be intubated or expose noninvasive ventilation due to risk of pneumothorax. He however wants medical management. Patient was started on antibiotic/steroid subsequently hospitalist service was consulted At the time of my evaluation patient is alert and oriented. He was able to an swer most the questions. Endorses to history as above. Denies recent exposure to sick contacts including Covid. His Covid test today was negative.He denies fever, chills, diarrhea, rash, joint pain, myalgia, headache or photophobia. He endorses feeling productive sputum increasing purulence with cough, complains of difficulty voiding urine 05/07-patient clinically improving. Improving shortness of breath now on 10 L oxygen. Significant urine retention with over 1000 cc requiring Conway's ca theter, white count 7.5, creatinine 1 BUN 19, electrolytes stable. De-escalate antibiotics in 24 hours if rapid clinical improvement noted continue steroids and bronchodilators. Constitutional Vitals: Vital Signs Temp Pulse Resp BP Pulse Ox 97.8 F 86 22 148/87 93 05/07/20 08:01 05/07/20 00:30 05/07/20 08:01 05/07/20 08:01 05/07/20 08:56 Period Temp Pulse Resp BP Sys/Ford Pulse Ox Last 24 Hr 97.8 F-98.9 F 70-94 18-41 90-148/49-87 84-97 Intake and Output 05/06/20 05/07/20 05/07/20 21:59 05:59 13:59 Intake Total 150 650 480 Output Total 50 1640 400 Balance 100 -990 80 Weight 102.739 kg On 10 L oxygen Improved work of breathing No anxiety No lymphedema Conway is draining clear urine Intake & Output: Intake & Output 05/06/20 05/07/20 05/07/20 21:59 05:59 13:59 Intake Total 150 650 480 Output Total 50 1640 400 Balance 100 -990 80 Weight 102.739 kg Intake: IV 150 Oral 650 480 Output: Urine Catheter Amount 1640 400 Void Amount 50 Other: Meal Breakfast Percent of Meal Consumed 100% Feeding Ability Independent Urine Appearance Clear Clear Clear Uretheral (Conway) Clear Urine Color Dark Yellow Bright Yellow Pale Uretheral (Conwya) Bright Yellow Urine Odor Strong Normal Normal # Bowel Movements 0 OBJ DATA Labs CBC & Chem 7: 05/07/20 04:44 05/07/20 04:44 Labs: Abnormal Lab Results 05/07/20 05/07/20 05/06/20 04:44 04:44 08:22 RBC 4.20 L Hgb 12.1 L Hct 40.4 L MCHC 30.0 L Neut % (Auto) 94.1 H Lymph % (Auto) 5.4 L [place] % (Auto) 0.4 L Lymph # (Auto) 0.41 L [place] # (Auto) 0.03 L Absolute Neutrophils D-Dimer Potassium 5.5 H Anion Gap 6.0 L Glucose 137 H 136 H Lactate Dehydrogenase 301 H NT-Pro-B Natriuret Pep 348.9 H Globulin 4.7 H 4.5 H Albumin/Globulin Ratio 0.7 L 0.7 L 05/06/20 05/06/20 08:22 08:22 RBC 4.07 L Hgb 11.9 L Hct 39.4 L MCHC 30.2 L Neut % (Auto) Lymph % (Auto) 8.5 L [place] % (Auto) Lymph # (Auto) 0.92 L [place] # (Auto) Absolute Neutrophils 8.44 H D-Dimer 2.36 H Potassium Anion Gap Glucose Lactate Dehydrogenase NT-Pro-B Natriuret Pep Globulin Albumin/Globulin Ratio Meds: Medications Acetaminophen (Tylenol) 650 mg PO Q4-6HP PRN; Protocol PRN Reason: Per Pain Protocol/Fever > 101 Hydrocodone Bitart/Acetaminophen (Dearing 5/325mg) 1 tab PO Q4-6HP PRN; Protocol PRN Reason: Chest Pain Albuterol Sulfate (Ventolin) 1 - 2 puff INH Q4HP PRN PRN Reason: Shortness Of Breath Amlodipine Besylate (Norvasc) 5 mg PO QAM [facility] Last Admin: 05/07/20 08:13 Dose: 5 mg Documented by: Aspirin (Aspirin) 81 mg PO BID [facility] Last Admin: 05/07/20 08:13 Dose: 81 mg Documented by: Atenolol (Tenormin) 50 mg PO BID [facility] Last Admin: 05/07/20 08:13 Dose: 50 mg Documented by: Atorvastatin Calcium (Lipitor) 20 mg PO QHS [facility] Last Admin: 05/06/20 22:12 Dose: 20 mg Documented by: Bisacodyl (Dulcolax) 10 mg HI Q2-3DAYS PRN PRN Reason: Constipation Docusate Sodium (Colace) 100 mg PO BID [facility] Last Admin: 05/07/20 08:23 Dose: 100 mg Documented by: Heparin Sodium (Porcine) (Heparin) 5,000 unit SQ Q12 [facility] Last Admin: 05/07/20 08:13 Dose: 5,000 unit Documented by: Potassium Chloride 40 meq/ (Dextrose) 520 mls @ 130 mls/hr IV UD PRN PRN Reason: K+ = or < 3.5 Levofloxacin (Levaquin) 750 mg in 150 mls @ 100 mls/hr IV DAILY [facility]; Protocol Last Admin: 05/07/20 08:12 Dose: 100 mls/hr Documented by: Acetaminophen (Ofirmev) 650 mg in 65 mls @ 130 mls/hr IV Q6HP PRN; Protocol PRN Reason: Per Pain Protocol/Fever > 101 Magnesium Sulfate (Magnesium Sulfate) 2 gm in 50 mls @ 50 mls/hr IV UD PRN PRN Reason: MG = or < 1.7 Iron Carb/Multivit/Allegheny/Folic Acid (Multivitamin W/Minerals) 1 tab PO DAILY [facility] Last Admin: 05/07/20 08:12 Dose: 1 tab Documented by: Losartan Potassium (Cozaar) 100 mg PO DAILY [facility] Last Admin: 05/07/20 08:12 Dose: 100 mg Documented by: Melatonin (Melatonin 3mg Tablet) 9 mg PO HSP PRN PRN Reason: Sleep Last Admin: 05/06/20 22:08 Dose: 9 mg Documented by: Methylprednisolone Sodium Succinate (Solu-Medrol) 60 mg IV Q6H [facility] Last Admin: 05/07/20 05:53 Dose: 60 mg Documented by: Nitroglycerin (Nitrostat) 0.4 mg SL Q5M PRN PRN Reason: Chest Pain Ondansetron HCl (Zofran Odt) 4 mg SL Q4-6HP PRN; Protocol PRN Reason: Nausea And Vomiting Ondansetron HCl (Zofran) 4 mg IV Q4-6HP PRN; Protocol PRN Reason: Nausea And Vomiting Polyethylene Glycol (Miralax) 17 gm PO DAILYP PRN PRN Reason: Constipation Potassium Chloride (Klor-Con) 40 meq PO DAILYP PRN PRN Reason: K+ < 3.5 Senna/Docusate Sodium (Senna Plus Tablet) 1 tab PO HS [facility] Last Admin: 05/06/20 22:09 Dose: Not Given Documented by: Sodium Chloride (Saline Flush) 10 ml IV Q8 [facility] Last Admin: 05/07/20 05:53 Dose: 10 ml Documented by: Zolpidem Tartrate (Ambien) 10 mg PO HSP PRN PRN Reason: Insomnia Last Admin: 05/06/20 22:08 Dose: 10 mg Documented by: A/P Narrative A/P Narrative: * Acute hypoxic respiratory failure-gradual clinical improvement noted now on 10 L oxygen. Ongoing physical therapy. Continue pulmonary toilet/supplemental oxygen * Multifocal pneumonia- COVID-19 negative, normal white count. Low procalcitonin. De-escalate antibiotics in 24 hours if interval chest imaging improvement noted * Acute exacerbation of COPD-clinical improvement noted on steroids and bronchodilators * Hypertension continue atenolol/losartan/amlodipine * Degenerative joint disease continue hydrocodone * Hyperlipidemia continue statin * Urinary retention-Conway's catheter if indicated * DNR * Prophylaxis Heparin Plan * Continue supplemental oxygen and wean as tolerated * Serial blood gas/chest imaging * IV steroids * De-escalate antibiotic coverage in 24 to 48 hours * Pre-existing medical condition management home meds * improved short-term prognosis based on interval improvement Time Spent With Patient Time: Total time spent is greater than 50% in coordination of care (as documented) at patient's floor/unit and/or counseling patient: QUALITY VTE Deep Vein Thrombosis/Pulmonary Embolism Present on Admission: No
[2020-05-07] MEDS ORDERED: IPRATROPIUM/ALBUTEROL 3 ML AMPUL.NEB NEB PRN (11:52)
[2020-05-07] MEDS ORDERED: IPRATROPIUM/ALBUTEROL 3 ML AMPUL.NEB NEB ONE (12:05)
[2020-05-07] MEDS: ZOLPIDEM 5 MG TABLET PO PRN (21:15)
[2020-05-07] MEDS: MELATONIN 3 MG TABLET PO PRN (21:20)
[2020-05-07] MEDS: ATORVASTATIN 20 MG TABLET PO SCH (21:21)
[2020-05-07] MEDS: SENNOSIDES/DOCUSATE SODIUM 1 TAB TABLET PO SCH (21:21)
[2020-05-08] MEDS: methylPREDNISolone SOD SUCC 125 MG/2 ML VIAL IV SCH ×4 (00:46→17:55)
[2020-05-08 06:06] LABS: Basophils # (Auto) 0.01 K/mcL (0.00-0.20); Basophils % (Auto) 0.1 % (0.0-2.0); Eosinophils # (Auto) 0 K/mcL (0.00-0.70); Eosinophils % (Auto) 0 % (0.0-7.0); Hematocrit 38.3 % (41.0-55.0); Hemoglobin 11.8 g/dL (13.5-16.5); Lymphocytes % (Auto) 3.7 % (15.0-49.0); Mean Cell Volume 94.6 fL (80.0-100.0); Mean Corpuscular HGB Conc 30.8 g/dL (31.0-36.0); Mean Platelet Volume 10.1 fL (7.4-10.4); Monocytes # (Auto) 0.34 K/mcL (0.10-0.90); Monocytes % (Auto) 2.5 % (1.0-12.0); Neutrophils % (Auto) 93.7 % (38.0-78.0); Platelet Count 333 K/mcL (140-440); RBC 4.05 M/mcL (4.50-5.90); Red Cell Distribution Width 13.5 % (11.5-14.5); WBC 13.6 K/mcL (4.5-11.0)
[2020-05-08] MEDS: 0.9 % SODIUM CHLORIDE 10 ML SYRINGE IV SCH ×2 (06:48→13:09)
[2020-05-08 06:55] LABS: ALT/SGPT 13 U/L (<40); AST/SGOT 19 U/L (<40); Albumin/Globulin Ratio 0.7 (1.0-2.3); Alkaline Phosphatase 97 U/L (39-117); Bilirubin,Direct < 0.2 mg/dL (<0.3); Bilirubin,Total 0.2 mg/dL (0.1-1.0); Blood Urea Nitrogen 27 mg/dL (8-23); Calcium 8.7 mg/dL (8.6-10.4); Carbon Dioxide 28 mmol/L (22-30); Chloride 99 mmol/L (96-108); Globulin 4.4 gm/dL (2.2-3.7); Glomerular Filtration Rate 86; Glucose 143 mg/dL (70-105); Lactate Dehydrogenase 244 U/L (135-225); Phosphorous 4.2 mg/dL (2.5-4.5); Triglycerides 51 mg/dL (<150); Uric Acid 5.2 mg/dL (2.5-8.0)
--- NOTE | 2020-05-08 08:47 | XRay Report ---
CLINICAL INFORMATION: Interval Change COMPARISON: Portable chest 05/06/2020. FINDINGS: Moderate cardiomegaly is unchanged. Mediastinum and pulmonary vessels are normal. Large alveolar infiltrates in both mid and lower lungs, superimposed upon known underlying interstitial fibrosis, are moderately better aerated on today's exam. COPD changes with large bullae in the apical regions seen as before. Moderate right apical pleural fibrosis is again seen. There are small bilateral pleural effusions. Bilateral diaphragmatic calcifications noted. IMPRESSION: Large alveolar infiltrates in both mid/lower lungs superimposed upon known underlying moderate interstitial fibrosis and COPD. Infiltrates have improved considerably since exam two days prior. Small bilateral pleural effusions - stable Interpreted and Authenticated by: Ousmane Shields 05/08/20
[2020-05-08] MEDS: LEVOFLOXACIN 750 MG/150 ML BAG IV SCH (08:55)
[2020-05-08] MEDS: amLODIPine 5 MG TABLET PO SCH (08:58)
[2020-05-08] MEDS: ATENOLOL 50 MG TABLET PO SCH ×2 (08:58→20:54)
[2020-05-08] MEDS: DOCUSATE SODIUM 100 MG CAPSULE PO SCH ×2 (08:58→20:53)
[2020-05-08] MEDS: LOSARTAN 50 MG TABLET PO SCH (08:58)
[2020-05-08] MEDS: MULTIVIT,THER IRON,CA,FA & MIN 1 TABLET PO SCH (08:58)
[2020-05-08] MEDS: HEPARIN 5,000 UNIT/ML VIAL SQ SCH ×2 (08:58→20:54)
--- NOTE | 2020-05-08 15:27 | Internal Med Progress Note ---
SUBJECTIVE Subjective Patient information: Note initiated : 05/08/20 at 3:23 pm Service Date, if different from initiated Date: [] Patient: Jed Dias 70 y/o M admitted on 05/06/20 for SOB . Chief Complaint: [] Interval history: Mr. Dias is a 70 year old M with a history of bullous emphysema managed by pulmonology Dr. Hays usually on 3 L oxygen who recently had a complicated hospitalization in February following a hip fracture and was hospitalized for 19 days recovering from pulmonary complications. He was discharged and has gradually been recovering until last evening started getting short of breath. His sats started dropping to 70s. He increased his oxygen to 6 L. This morning despite 160s oxygen his sats was in 60s and thereafter presents to the ER for evaluation. Initial work-up was consistent with acute COPD exacerbation and requiring 2 L oxygen to maintain sats. Patient deferred that due to bullous emphysema he would not want to be intubated or expose noninvasive ventilation due to risk of pneumothorax. He however wants medical management. Patient was started on antibiotic/steroid subsequently hospitalist service was consulted At the time of my evaluation patient is alert and oriented. He was able to an swer most the questions. Endorses to history as above. Denies recent exposure to sick contacts including Covid. His Covid test today was negative.He denies fever, chills, diarrhea, rash, joint pain, myalgia, headache or photophobia. He endorses feeling productive sputum increasing purulence with cough, complains of difficulty voiding urine 05/07-patient clinically improving. Improving shortness of breath now on 10 L oxygen. Significant urine retention with over 1000 cc requiring Conway's ca theter, white count 7.5, creatinine 1 BUN 19, electrolytes stable. De-escalate antibiotics in 24 hours if rapid clinical improvement noted continue steroids and bronchodilators. 05/08-patient feels a lot better since previous day. Conway is draining clear urine. Currently on 6 to 8 L oxygen and frequently desats with minimal exertion. Patient follows up with Dr. Hays and has not appointment May 29. Continue IV steroids/bronchodilators/antibiotics. Anticipate discharge in 24 to 48 hours pending clinical improvement. Will discuss with pulmonology Constitutional Vitals: Vital Signs Temp Pulse Resp BP Pulse Ox 98.4 F 100 H 35 H 115/64 89 L 05/08/20 14:01 05/08/20 00:29 05/08/20 14:28 05/08/20 14:01 05/08/20 14:28 Period Temp Pulse Resp BP Sys/Ford Pulse Ox Last 24 Hr 97.4 F-98.5 F 82-100 20-36 112-134/64-114 83-98 Intake and Output 05/08/20 05/08/20 05/08/20 05:59 13:59 21:59 Intake Total 50 390 420 Output Total 500 850 Balance -450 -460 420 Alert oriented Labored r breathing on 6 to 8 L oxygen Conway draining clear urine Anxious Intake & Output: Intake & Output 05/08/20 05/08/20 05/08/20 05:59 13:59 21:59 Intake Total 50 390 420 Output Total 500 850 Balance -450 -460 420 Intake: IV 150 Oral 50 240 420 Output: Urine Catheter Amount 500 Void Amount 850 Other: Meal Breakfast Lunch Percent of Meal Consumed 100% 100% Urine Appearance Clear Clear Clear Uretheral ([place]) Clear Clear Clear Urine Color Bright Yellow Dark Yellow Dark Yellow Uretheral ([place]) Bright Yellow Bright Yellow Bright Yellow Urine Odor Normal Normal Stool Size Large Stool Color Brown Stool Consistency Soft # Bowel Movements 1 OBJ DATA Labs CBC & Chem 7: 05/08/20 04:41 05/08/20 04:41 Labs: Abnormal Lab Results 05/08/20 05/08/20 05/07/20 04:41 04:41 04:44 WBC 13.6 H RBC 4.05 L Hgb 11.8 L Hct 38.3 L MCHC 30.8 L Neut % (Auto) 93.7 H Lymph % (Auto) 3.7 L [place] % (Auto) Lymph # (Auto) 0.50 L [place] # (Auto) Absolute Neutrophils 12.75 H D-Dimer Potassium 5.5 H Anion Gap 6.0 L BUN 27 H Glucose 143 H 137 H Lactate Dehydrogenase 244 H 301 H NT-Pro-B Natriuret Pep Albumin 3.0 L Globulin 4.4 H 4.7 H Albumin/Globulin Ratio 0.7 L 0.7 L 05/07/20 05/06/20 05/06/20 04:44 08:22 08:22 WBC RBC 4.20 L Hgb 12.1 L Hct 40.4 L MCHC 30.0 L Neut % (Auto) 94.1 H Lymph % (Auto) 5.4 L [place] % (Auto) 0.4 L Lymph # (Auto) 0.41 L [place] # (Auto) 0.03 L Absolute Neutrophils D-Dimer 2.36 H Potassium Anion Gap BUN Glucose 136 H Lactate Dehydrogenase NT-Pro-B Natriuret Pep 348.9 H Albumin Globulin 4.5 H Albumin/Globulin Ratio 0.7 L 05/06/20 08:22 WBC RBC 4.07 L Hgb 11.9 L Hct 39.4 L MCHC 30.2 L Neut % (Auto) Lymph % (Auto) 8.5 L [place] % (Auto) Lymph # (Auto) 0.92 L [place] # (Auto) Absolute Neutrophils 8.44 H D-Dimer Potassium Anion Gap BUN Glucose Lactate Dehydrogenase NT-Pro-B Natriuret Pep Albumin Globulin Albumin/Globulin Ratio Meds: Medications Acetaminophen (Tylenol) 650 mg PO Q4-6HP PRN; Protocol PRN Reason: Per Pain Protocol/Fever > 101 Hydrocodone Bitart/Acetaminophen ([place] 5/325mg) 1 tab PO Q4-6HP PRN; Protocol PRN Reason: Chest Pain Albuterol/Ipratropium (Duoneb) 3 ml NEB Q4HP PRN PRN Reason: Shortness Of Breath Amlodipine Besylate (Norvasc) 5 mg PO QAM [facility] Last Admin: 05/08/20 08:58 Dose: 5 mg Documented by: Aspirin (Aspirin) 81 mg PO HS [facility] Last Admin: 05/07/20 21:20 Dose: 81 mg Documented by: Atenolol (Tenormin) 50 mg PO BID [facility] Last Admin: 05/08/20 08:58 Dose: 50 mg Documented by: Atorvastatin Calcium (Lipitor) 20 mg PO QHS [facility] Last Admin: 05/07/20 21:21 Dose: 20 mg Documented by: Bisacodyl (Dulcolax) 10 mg [place] Q2-3DAYS PRN PRN Reason: Constipation Docusate Sodium (Colace) 100 mg PO BID [facility] Last Admin: 05/08/20 08:58 Dose: 100 mg Documented by: Heparin Sodium (Porcine) (Heparin) 5,000 unit SQ Q12 [facility] Last Admin: 05/08/20 08:58 Dose: 5,000 unit Documented by: Potassium Chloride 40 meq/ (Dextrose) 520 mls @ 130 mls/hr IV UD PRN PRN Reason: K+ = or < 3.5 Levofloxacin (Levaquin) 750 mg in 150 mls @ 100 mls/hr IV DAILY [facility]; Protocol Last Infusion: 05/08/20 12:00 Dose: Infused Documented by: Acetaminophen (Ofirmev) 650 mg in 65 mls @ 130 mls/hr IV Q6HP PRN; Protocol PRN Reason: Per Pain Protocol/Fever > 101 Magnesium Sulfate (Magnesium Sulfate) 2 gm in 50 mls @ 50 mls/hr IV UD PRN PRN Reason: MG = or < 1.7 Iron Carb/Multivit/[place]/Folic Acid (Multivitamin W/Minerals) 1 tab PO DAILY [facility] Last Admin: 05/08/20 08:58 Dose: 1 tab Documented by: Losartan Potassium (Cozaar) 100 mg PO DAILY [facility] Last Admin: 05/08/20 08:58 Dose: 100 mg Documented by: Melatonin (Melatonin 3mg Tablet) 9 mg PO [facility] PRN PRN Reason: Sleep Last Admin: 05/07/20 21:20 Dose: 9 mg Documented by: Methylprednisolone Sodium Succinate (Solu-Medrol) 60 mg IV Q6H [facility] Last Admin: 05/08/20 13:09 Dose: 60 mg Documented by: Nitroglycerin (Nitrostat) 0.4 mg SL Q5M PRN PRN Reason: Chest Pain Ondansetron HCl (Zofran Odt) 4 mg SL Q4-6HP PRN; Protocol PRN Reason: Nausea And Vomiting Ondansetron HCl (Zofran) 4 mg IV Q4-6HP PRN; Protocol PRN Reason: Nausea And Vomiting Polyethylene Glycol (Miralax) 17 gm PO DAILYP PRN PRN Reason: Constipation Potassium Chloride (Klor-Con) 40 meq PO DAILYP PRN PRN Reason: K+ < 3.5 Senna/Docusate Sodium (Senna Plus Tablet) 1 tab PO HS [facility] Last Admin: 05/07/20 21:21 Dose: 1 tab Documented by: Sodium Chloride (Saline Flush) 10 ml IV Q8 [facility] Last Admin: 05/08/20 13:09 Dose: 10 ml Documented by: Zolpidem Tartrate (Ambien) 10 mg PO [facility] PRN PRN Reason: Insomnia Last Admin: 05/07/20 21:15 Dose: 10 mg Documented by: A/P Jose D A/P Narrative: * Acute hypoxic respiratory failure-secondary to advanced COPD. Now on 6 to 8 L oxygen. Improved since previous day. * Multifocal pneumonia- COVID-19 negative, white count at 13.6. On oral Levaquin.. Low procalcitonin. Cultures negative so far. * Mild hyperkalemia down from 5.5-5.1. * Acute exacerbation of COPD-continue steroids/bronchodilators/pulmonary toilet. Clinically improving. * Hypertension continue atenolol/losartan/amlodipine * Degenerative joint disease continue hydrocodone * Hyperlipidemia continue statin * Urinary retention-Conway's catheter if indicated * DNR * Prophylaxis Heparin Plan * Continue supplemental oxygen and wean as tolerated * Continue steroids and bronchodilators * Pre-existing medical condition management home meds * Recommend outpatient pulmonology follow-up discharge * Possible discharge in 24 hours pending clinical improvement Time Spent With Patient Time: Total time spent is greater than 50% in coordination of care (as jeremiah mims) at patient's floor/unit and/or counseling patient: QUALITY VTE Deep Vein Thrombosis/Pulmonary Embolism Present on Admission: No
[2020-05-08] MEDS: SENNOSIDES/DOCUSATE SODIUM 1 TAB TABLET PO SCH (20:53)
[2020-05-08] MEDS: ASPIRIN 81 MG TAB.CHEW PO SCH (20:53)
[2020-05-08] MEDS: ATORVASTATIN 20 MG TABLET PO SCH (20:54)
[2020-05-08] MEDS: ZOLPIDEM 5 MG TABLET PO PRN (21:02)
[2020-05-08] MEDS: MELATONIN 3 MG TABLET PO PRN (21:02)
[2020-05-09] MEDS: methylPREDNISolone SOD SUCC 125 MG/2 ML VIAL IV SCH ×2 (00:17→06:08)
[2020-05-09] MEDS: 0.9 % SODIUM CHLORIDE 10 ML SYRINGE IV SCH ×4 (00:18→21:45)
[2020-05-09 06:45] LABS: Basophils # (Auto) 0.01 K/mcL (0.00-0.20); Basophils % (Auto) 0.1 % (0.0-2.0); Eosinophils # (Auto) 0 K/mcL (0.00-0.70); Eosinophils % (Auto) 0 % (0.0-7.0); Hematocrit 40.6 % (41.0-55.0); Hemoglobin 12.1 g/dL (13.5-16.5); Lymphocytes # (Auto) 0.36 K/mcL (1.50-4.80); Lymphocytes % (Auto) 2.7 % (15.0-49.0); Mean Cell Volume 96.2 fL (80.0-100.0); Mean Corpuscular HGB Conc 29.8 g/dL (31.0-36.0); Mean Platelet Volume 10.2 fL (7.4-10.4); Monocytes # (Auto) 0.35 K/mcL (0.10-0.90); Monocytes % (Auto) 2.6 % (1.0-12.0); Neutrophils % (Auto) 94.6 % (38.0-78.0); Platelet Count 349 K/mcL (140-440); RBC 4.22 M/mcL (4.50-5.90); Red Cell Distribution Width 13.6 % (11.5-14.5); WBC 13.3 K/mcL (4.5-11.0)
[2020-05-09 07:31] LABS: ALT/SGPT 38 U/L (<40); AST/SGOT 33 U/L (<40); Albumin 2.9 gm/dL (3.2-5.2); Albumin/Globulin Ratio 0.6 (1.0-2.3); Alkaline Phosphatase 93 U/L (39-117); Bilirubin,Direct < 0.2 mg/dL (<0.3); Bilirubin,Total 0.2 mg/dL (0.1-1.0); Blood Urea Nitrogen 30 mg/dL (8-23); Calcium 8.4 mg/dL (8.6-10.4); Carbon Dioxide 34 mmol/L (22-30); Chloride 100 mmol/L (96-108); Globulin 4.6 gm/dL (2.2-3.7); Glomerular Filtration Rate 68; Glucose 151 mg/dL (70-105); Lactate Dehydrogenase 250 U/L (135-225); Phosphorous 4.7 mg/dL (2.5-4.5); Triglycerides 57 mg/dL (<150); Uric Acid 5.3 mg/dL (2.5-8.0)
[2020-05-09] MEDS ORDERED: predniSONE 20 MG TABLET PO SCH (08:00)
[2020-05-09] MEDS: LEVOFLOXACIN 750 MG/150 ML BAG IV SCH (08:27)
[2020-05-09] MEDS: LOSARTAN 50 MG TABLET PO SCH (08:28)
[2020-05-09] MEDS: HEPARIN 5,000 UNIT/ML VIAL SQ SCH ×2 (08:28→21:26)
[2020-05-09] MEDS: DOCUSATE SODIUM 100 MG CAPSULE PO SCH ×2 (08:28→21:27)
[2020-05-09] MEDS: MULTIVIT,THER IRON,CA,FA & MIN 1 TABLET PO SCH (08:28)
--- NOTE | 2020-05-09 11:18 | Internal Med Progress Note ---
SUBJECTIVE Subjective Patient information: Note initiated : 05/09/20 at 11:15 am Service Date, if different from initiated Date: [] Patient: Jed Dias 70 y/o M admitted on 05/06/20 for SOB . Chief Complaint: [] Interval history: Mr. Dias is a 70 year old M with a history of bullous emphysema managed by pulmonology Dr. Hays usually on 3 L oxygen who recently had a complicated hospitalization in February following a hip fracture and was hospitalized for 19 days recovering from pulmonary complications. He was discharged and has gradually been recovering until last evening started getting short of breath. His sats started dropping to 70s. He increased his oxygen to 6 L. This morning despite 160s oxygen his sats was in 60s and thereafter presents to the ER for evaluation. Initial work-up was consistent with acute COPD exacerbation and requiring 2 L oxygen to maintain sats. Patient deferred that due to bullous emphysema he would not want to be intubated or expose noninvasive ventilation due to risk of pneumothorax. He however wants medical management. Patient was started on antibiotic/steroid subsequently hospitalist service was consulted At the time of my evaluation patient is alert and oriented. He was able to a nswer most the questions. Endorses to history as above. Denies recent exposure to sick contacts including Covid. His Covid test today was negative.He denies fever, chills, diarrhea, rash, joint pain, myalgia, headache or photophobia. He endorses feeling productive sputum increasing purulence with cough, complains of difficulty voiding urine 05/07-patient clinically improving. Improving shortness of breath now on 10 L oxygen. Significant urine retention with over 1000 cc requiring Conway's c atheter, white count 7.5, creatinine 1 BUN 19, electrolytes stable. De-escalate antibiotics in 24 hours if rapid clinical improvement noted continue steroids and bronchodilators. 05/08-patient feels a lot better since previous day. Conway is draining clear urine. Currently on 6 to 8 L oxygen and frequently desats with minimal exertion. Patient follows up with Dr. Hays and has not appointment May 29. Continue IV steroids/bronchodilators/antibiotics. Anticipate discharge in 24 to 48 hours pending clinical improvement. Will discuss with pulmonology 05/09-patient clinical status unchanged. Currently on 6 L oxygen. However feels a lot better this morning, sitting on chair. Discussed treatment plan with ongoing steroids. Will possibly transition to SNF. Case discussed with Dr. Hays pulmonology. Advanced COPD with poor long-term prognosis. Continue rehab as tolerated. Transition to oral steroids today. Interval improvement on chest infiltrates noted on imaging. Continue antibiotic coverage. Constitutional Vitals: Vital Signs Temp Pulse Resp BP Pulse Ox 97.8 F 70 26 H 105/67 96 05/09/20 08:01 05/09/20 02:00 05/09/20 10:01 05/09/20 10:01 05/09/20 10:01 Period Temp Pulse Resp BP Sys/Ford Pulse Ox Last 24 Hr 97.8 F-98.5 F 70-80 18-35 105-130/64-79 86-100 Intake and Output 05/08/20 05/09/20 05/09/20 21:59 05:59 13:59 Intake Total 840 280 Output Total 625 450 Balance 215 -170 Weight 101.65 kg alert oriented on 6 L oxygen No anxiety Breathing minimally labored Intake & Output: Intake & Output 05/08/20 05/09/20 05/09/20 21:59 05:59 13:59 Intake Total 840 280 Output Total 625 450 Balance 215 -170 Weight 101.65 kg Intake: Oral 840 280 Output: Void Amount 625 450 Other: Meal Lunch Percent of Meal Consumed 100% Urine Appearance Clear Uretheral ([place]) Clear Urine Color Bright Yellow Uretheral ([place]) Bright Yellow Urine Odor Normal Stool Size Large Stool Color Brown Stool Consistency Soft # Bowel Movements 1 OBJ DATA Labs CBC & Chem 7: 05/09/20 04:45 05/09/20 04:45 Labs: Abnormal Lab Results 05/09/20 05/09/20 05/08/20 04:45 04:45 04:41 WBC 13.3 H RBC 4.22 L Hgb 12.1 L Hct 40.6 L MCHC 29.8 L Neut % (Auto) 94.6 H Lymph % (Auto) 2.7 L [place] % (Auto) Lymph # (Auto) 0.36 L [place] # (Auto) Absolute Neutrophils 12.57 H Potassium 5.3 H Carbon Dioxide 34 H Anion Gap 5.0 L BUN 30 H 27 H Glucose 151 H 143 H Calcium 8.4 L Phosphorus 4.7 H Lactate Dehydrogenase 250 H 244 H Albumin 2.9 L 3.0 L Globulin 4.6 H 4.4 H Albumin/Globulin Ratio 0.6 L 0.7 L 05/08/20 05/07/20 05/07/20 04:41 04:44 04:44 WBC 13.6 H RBC 4.05 L 4.20 L Hgb 11.8 L 12.1 L Hct 38.3 L 40.4 L MCHC 30.8 L 30.0 L Neut % (Auto) 93.7 H 94.1 H Lymph % (Auto) 3.7 L 5.4 L [place] % (Auto) 0.4 L Lymph # (Auto) 0.50 L 0.41 L [place] # (Auto) 0.03 L Absolute Neutrophils 12.75 H Potassium 5.5 H Carbon Dioxide Anion Gap 6.0 L BUN Glucose 137 H Calcium Phosphorus Lactate Dehydrogenase 301 H Albumin Globulin 4.7 H Albumin/Globulin Ratio 0.7 L Meds: Medications Acetaminophen (Tylenol) 650 mg PO Q4-6HP PRN; Protocol PRN Reason: Per Pain Protocol/Fever > 101 Hydrocodone Bitart/Acetaminophen ([place] 5/325mg) 1 tab PO Q4-6HP PRN; Protocol PRN Reason: Chest Pain Albuterol/Ipratropium (Duoneb) 3 ml NEB Q4HP PRN PRN Reason: Shortness Of Breath Amlodipine Besylate (Norvasc) 5 mg PO QAM [facility] Last Admin: 05/08/20 08:58 Dose: 5 mg Documented by: Aspirin (Aspirin) 81 mg PO HS [facility] Last Admin: 05/08/20 20:53 Dose: 81 mg Documented by: Atenolol (Tenormin) 50 mg PO BID [facility] Last Admin: 05/08/20 20:54 Dose: 50 mg Documented by: Atorvastatin Calcium (Lipitor) 20 mg PO QHS [facility] Last Admin: 05/08/20 20:54 Dose: 20 mg Documented by: Bisacodyl (Dulcolax) 10 mg [place] Q2-3DAYS PRN PRN Reason: Constipation Docusate Sodium (Colace) 100 mg PO BID [facility] Last Admin: 05/09/20 08:28 Dose: 100 mg Documented by: Heparin Sodium (Porcine) (Heparin) 5,000 unit SQ Q12 [facility] Last Admin: 05/09/20 08:28 Dose: 5,000 unit Documented by: Potassium Chloride 40 meq/ (Dextrose) 520 mls @ 130 mls/hr IV UD PRN PRN Reason: K+ = or < 3.5 Levofloxacin (Levaquin) 750 mg in 150 mls @ 100 mls/hr IV DAILY [facility]; Protocol Last Admin: 05/09/20 08:27 Dose: 100 mls/hr Documented by: Acetaminophen (Ofirmev) 650 mg in 65 mls @ 130 mls/hr IV Q6HP PRN; Protocol PRN Reason: Per Pain Protocol/Fever > 101 Magnesium Sulfate (Magnesium Sulfate) 2 gm in 50 mls @ 50 mls/hr IV UD PRN PRN Reason: MG = or < 1.7 Iron Carb/Multivit/[employer]/Folic Acid (Multivitamin W/Minerals) 1 tab PO DAILY [facility] Last Admin: 05/09/20 08:28 Dose: 1 tab Documented by: Losartan Potassium (Cozaar) 100 mg PO DAILY [facility] Last Admin: 05/09/20 08:28 Dose: 100 mg Documented by: Melatonin (Melatonin 3mg Tablet) 9 mg PO [facility] PRN PRN Reason: Sleep Last Admin: 05/08/20 21:02 Dose: 9 mg Documented by: Methylprednisolone Sodium Succinate (Solu-Medrol) 60 mg IV Q6H [facility] Last Admin: 05/09/20 06:08 Dose: 60 mg Documented by: Nitroglycerin (Nitrostat) 0.4 mg SL Q5M PRN PRN Reason: Chest Pain Ondansetron HCl (Zofran Odt) 4 mg SL Q4-6HP PRN; Protocol PRN Reason: Nausea And Vomiting Ondansetron HCl (Zofran) 4 mg IV Q4-6HP PRN; Protocol PRN Reason: Nausea And Vomiting Polyethylene Glycol (Miralax) 17 gm PO DAILYP PRN PRN Reason: Constipation Potassium Chloride (Klor-Con) 40 meq PO DAILYP PRN PRN Reason: K+ < 3.5 Senna/Docusate Sodium (Senna Plus Tablet) 1 tab PO HS [facility] Last Admin: 05/08/20 20:53 Dose: 1 tab Documented by: Sodium Chloride (Saline Flush) 10 ml IV Q8 [facility] Last Admin: 05/09/20 06:08 Dose: 10 ml Documented by: Zolpidem Tartrate (Ambien) 10 mg PO [facility] PRN PRN Reason: Insomnia Last Admin: 05/08/20 21:02 Dose: 10 mg Documented by: A/P Narrative A/P Narrative: * Acute hypoxic respiratory failure-secondary to advanced COPD. Currently on 6 to 8 L oxygen. * Multifocal pneumonia- COVID-19 negative, white count downtrending at 13.3, continue oral Levaquin. Interval chest imaging considerable improvement in bilateral alveolar infiltrates. * Mild hyperkalemia down from 5.5->5.3. * Acute exacerbation of COPD-continue steroids/bronchodilators/pulmonary toilet. Transition to oral steroids. * Hypertension continue atenolol/losartan/amlodipine * Degenerative joint disease continue hydrocodone * Hyperlipidemia continue statin * Urinary retention-on Conway's catheter. Will need outpatient urology follow- up. * DNR * Prophylaxis Heparin Plan * Continue supplemental oxygen and wean as tolerated * Transition to oral steroids * Pre-existing medical condition management home meds * Recommend outpatient urology follow-up discharge for bladder outlet obs truction. * Profound hypoxemia limiting discharge planning at this time. Anticipate SNF transfer once stable Time Spent With Patient Time: Total time spent is greater than 50% in coordination of care (as documented) at patient's floor/unit and/or counseling patient: QUALITY VTE Deep Vein Thrombosis/Pulmonary Embolism Present on Admission: No
[2020-05-09] MEDS: amLODIPine 5 MG TABLET PO SCH (11:34)
[2020-05-09] MEDS: ATENOLOL 50 MG TABLET PO SCH ×2 (11:34→21:26)
[2020-05-09] MEDS ORDERED: ONDANSETRON 4 MG ODT TABLET SL PRN ×2 (15:44→18:00)
[2020-05-09] MEDS ORDERED: NITROGLYCERIN 0.4 MG TAB.SUBL SL PRN ×2 (15:44→18:00)
[2020-05-09] MEDS ORDERED: HYDROcodone/APAP 5/325MG TABLET PO PRN ×2 (15:44→18:00)
[2020-05-09] MEDS ORDERED: ACETAMINOPHEN 650 MG/65 ML BAG IV PRN ×2 (15:44→18:00)
[2020-05-09] MEDS ORDERED: POTASSIUM CHLORIDE 40 MEQ in DEXTROSE 5% IN WATER 500 ML IV PRN ×2 (15:44→18:00)
[2020-05-09] MEDS ORDERED: BISACODYL 10 MG SUPP.RECT PR PRN ×2 (15:44→18:00)
[2020-05-09] MEDS ORDERED: POTASSIUM CHLORIDE 20 MEQ PACKET PO PRN ×2 (15:44→18:00)
[2020-05-09] MEDS ORDERED: MAGNESIUM SULFATE 2 GM/50 ML BAG IV PRN ×2 (15:44→18:00)
[2020-05-09] MEDS ORDERED: IPRATROPIUM/ALBUTEROL 3 ML AMPUL.NEB NEB PRN ×2 (15:44→18:00)
[2020-05-09] MEDS ORDERED: ONDANSETRON 4 MG/2 ML VIAL IV PRN ×2 (15:44→18:00)
[2020-05-09] MEDS ORDERED: ACETAMINOPHEN 325 MG TABLET PO PRN ×2 (15:44→18:00)
[2020-05-09] MEDS ORDERED: POLYETHYLENE GLYCOL 3350 17 GM PACKET PO PRN ×2 (15:44→18:00)
[2020-05-09] MEDS ORDERED: SENNOSIDES/DOCUSATE SODIUM 1 TAB TABLET PO SCH ×2 (21:00)
[2020-05-09] MEDS ORDERED: ATORVASTATIN 20 MG TABLET PO SCH ×2 (21:00)
[2020-05-09] MEDS ORDERED: MELATONIN 3 MG TABLET PO PRN ×2 (21:00)
[2020-05-09] MEDS ORDERED: ZOLPIDEM 5 MG TABLET PO PRN ×2 (21:00)
[2020-05-09] MEDS ORDERED: ATENOLOL 50 MG TABLET PO SCH (21:00)
[2020-05-09] MEDS ORDERED: DOCUSATE SODIUM 100 MG CAPSULE PO SCH (21:00)
[2020-05-09] MEDS ORDERED: HEPARIN 5,000 UNIT/ML VIAL SQ SCH (21:00)
[2020-05-09] MEDS ORDERED: ASPIRIN 81 MG TAB.CHEW PO SCH ×2 (21:00)
[2020-05-09] MEDS ORDERED: 0.9 % SODIUM CHLORIDE 10 ML SYRINGE IV SCH (22:00)
[2020-05-10] MEDS: 0.9 % SODIUM CHLORIDE 10 ML SYRINGE IV SCH (05:31)
[2020-05-10 06:36] LABS: Basophils # (Auto) 0.01 K/mcL (0.00-0.20); Basophils % (Auto) 0.1 % (0.0-2.0); Eosinophils # (Auto) 0 K/mcL (0.00-0.70); Eosinophils % (Auto) 0 % (0.0-7.0); Hematocrit 40.5 % (41.0-55.0); Hemoglobin 11.9 g/dL (13.5-16.5); Lymphocytes # (Auto) 0.88 K/mcL (1.50-4.80); Mean Cell Volume 97.4 fL (80.0-100.0); Mean Corpuscular HGB Conc 29.4 g/dL (31.0-36.0); Mean Platelet Volume 10.2 fL (7.4-10.4); Monocytes # (Auto) 1.37 K/mcL (0.10-0.90); Monocytes % (Auto) 10.9 % (1.0-12.0); Platelet Count 363 K/mcL (140-440); RBC 4.16 M/mcL (4.50-5.90); Red Cell Distribution Width 13.7 % (11.5-14.5); WBC 12.6 K/mcL (4.5-11.0)
[2020-05-10 07:01] LABS: ALT/SGPT 41 U/L (<40); AST/SGOT 27 U/L (<40); Albumin 2.5 gm/dL (3.2-5.2); Albumin/Globulin Ratio 0.6 (1.0-2.3); Alkaline Phosphatase 87 U/L (39-117); Bilirubin,Direct < 0.2 mg/dL (<0.3); Bilirubin,Total 0.2 mg/dL (0.1-1.0); Blood Urea Nitrogen 34 mg/dL (8-23); Calcium 8.2 mg/dL (8.6-10.4); Carbon Dioxide 30 mmol/L (22-30); Chloride 100 mmol/L (96-108); Globulin 4.3 gm/dL (2.2-3.7); Glomerular Filtration Rate 76; Glucose 110 mg/dL (70-105); Lactate Dehydrogenase 251 U/L (135-225); Triglycerides 81 mg/dL (<150); Uric Acid 5.3 mg/dL (2.5-8.0)
[2020-05-10] MEDS ORDERED: predniSONE 20 MG TABLET PO SCH ×2 (08:00)
[2020-05-10] MEDS: ATENOLOL 50 MG TABLET PO SCH (08:01)
[2020-05-10] MEDS: DOCUSATE SODIUM 100 MG CAPSULE PO SCH (08:01)
[2020-05-10] MEDS: HEPARIN 5,000 UNIT/ML VIAL SQ SCH (08:01)
[2020-05-10] MEDS ORDERED: LEVOFLOXACIN 750 MG/150 ML BAG IV SCH ×2 (09:00)
[2020-05-10] MEDS ORDERED: LOSARTAN 50 MG TABLET PO SCH ×2 (09:00)
[2020-05-10] MEDS ORDERED: MULTIVIT,THER IRON,CA,FA & MIN 1 TABLET PO SCH ×2 (09:00)
[2020-05-10] MEDS ORDERED: amLODIPine 5 MG TABLET PO SCH ×2 (09:00)
--- NOTE | 2020-05-10 13:21 | Discharge Summary ---
Discharge Provider Provider Patient information: Note initiated : 05/10/20 at 1:17 pm Service Date, if different from initiated Date: [] Patient: Jed Dias 70 y/o M admitted on 05/06/20 for SOB . Discharge diagnosis * Acute hypoxic respiratory failure-secondary to advanced COPD. Currently on 6 to 8 L oxygen. Clinically back to baseline. Continue additional 10 days oral steroid * Multifocal pneumonia- COVID-19 negative, white count downtrending at 13.3, continue oral Levaquin for additional 4 days. Interval chest imaging considerable improvement in bilateral alveolar infiltrates. * Mild hyperkalemia down from 5.5->5.3->5. * Acute exacerbation of COPD-continue steroids/bronchodilators/pulmonary toilet. Continue oral steroids additional 10 days. Follow-up with pulmonolog May 29 * History of hypertension continue atenolol/losartan/amlodipine * Degenerative joint disease continue hydrocodone * Hyperlipidemia continue statin * Urinary retention-Conway discontinued. Able to void self. Continue Flomax. Will need outpatient urology follow-up for evaluation of BPH. Brief hospital course Mr. Dias is a 70 year old M with a history of bullous emphysema managed by pulmonology Dr. Hays usually on 3 L oxygen who recently had a complicated hospitalization in February following a hip fracture and was hospitalized for 19 days recovering from pulmonary complications. He was discharged and has gradually been recovering until last evening started getting short of breath. His sats started dropping to 70s. He increased his oxygen to 6 L. This morning despite 160s oxygen his sats was in 60s and thereafter presents to the ER for evaluation. Initial work-up was consistent with acute COPD exacerbation and requiring 2 L oxygen to maintain sats. Patient deferred that due to bullous emphysema he would not want to be intubated or expose noninvasive ventilation due to risk of pneumothorax. He however wants medical management. Patient was started on antibiotic/steroid subsequently hospitalist service was consulted At the time of my evaluation patient is alert and oriented. He was able to answer most the questions. Endorses to history as above. Denies recent exposure to sick contacts including Covid. His Covid test today was negative.He denies fever, chills, diarrhea, rash, joint pain, myalgia, headache or photophobia. He endorses feeling productive sputum increasing purulence with cough, complains of difficulty voiding urine 05/07-patient clinically improving. Improving shortness of breath now on 10 L oxygen. Significant urine retention with over 1000 cc requiring Conway's catheter, white count 7.5, creatinine 1 BUN 19, electrolytes stable. De- escalate antibiotics in 24 hours if rapid clinical improvement noted continue steroids and bronchodilators. 05/08-patient feels a lot better since previous day. Conway is draining clear urine. Currently on 6 to 8 L oxygen and frequently desats with minimal exertion. Patient follows up with Dr. Hays and has not appointment May 29. Continue IV steroids/bronchodilators/antibiotics. Anticipate discharge in 24 to 48 hours pending clinical improvement. Will discuss with pulmonology 05/09-patient clinical status unchanged. Currently on 6 L oxygen. However feels a lot better this morning, sitting on chair. Discussed treatment plan with ongoing steroids. Will possibly transition to SNF. Case discussed with Dr. Hays pulmonology. Advanced COPD with poor long-term prognosis. Continue rehab as tolerated. Transition to oral steroids today. Interval improvement on chest infiltrates noted on imaging. Continue antibiotic coverage. 05/10-patient doing well. Currently on 6 L oxygen at baseline. Discharging to SNF for continued posthospitalization rehab. Recommend follow-up with Dr. Hays pulmonology on May 29. Continue steroids/bronchodilators and antibiotics as advised. No overnight fever chills. Feels close to baseline. Continue Flomax. Date of admission: 05/06/20 14:38 Discharge date: 05/10/20 Primary care physician: Irish Garcia Consults: 05/06/20 Consult to Physician [CONS] Stat Comment: Consulting Provider: Madan Parisi Reason For Exam: Physician to Consult 05/10/20 10:17 Consult to Physician [CONS] Routine Comment: Consulting Provider: [facility] Reason For Exam: Physician to Consult Discharge Meds Discharge Medications Home Medications Oxygen cylinder #1 ea 02/03/18 [Rx Confirmed 05/06/20 Last Taken Unknown] nitroglycerin 0.4 mg sublingual tablet 0.4 mg SUBLINGUAL DIRECTED tab 12/20/18 [History Confirmed 05/07/20 Last Taken Unknown] vitamin B complex 1 tab PO DAILY tab 12/20/18 [History Confirmed 05/07/20 Last Taken 05/05/20] budesonide 0.5 mg/2 mL suspension for nebulization 0.5 mg INHALATION BID #120 ml 07/28/19 [Rx Confirmed 05/07/20 Last Taken 05/05/20] ibuprofen 200 mg tablet 200 mg PO QDP PRN tab 10/11/19 [History Confirmed 05/07/20 Last Taken 05/03/20] zolpidem 10 mg tablet 10 mg PO QHS PRN #30 tab 04/04/20 [Rx Confirmed 05/07/20 Last Taken 05/05/20] aspirin 81 mg tablet,delayed release 81 mg PO BID tab 04/15/20 [History Confirmed 05/07/20 Last Taken 05/05/20] loperamide 2 mg tablet 2 mg PO Q6H PRN #60 tab 04/23/20 [Rx Confirmed 05/07/20 Last Taken Unknown] atenolol 100 mg tablet 50 mg PO BID #180 tab 04/29/20 [Rx Confirmed 05/07/20 Last Taken 05/05/20] atorvastatin 20 mg tablet 20 mg PO QHS #90 tab 04/29/20 [Rx Confirmed 05/07/20 Last Taken 05/05/20] Anoro Ellipta 1 inh INHALATION QAM 05/06/20 [History Confirmed 05/07/20 Last Taken 05/05/20] amlodipine 5 mg PO QAM 05/06/20 [History Confirmed 05/07/20 Last Taken 05/05/20] hydrocodone-acetaminophen 1 tab PO Q4-6HP PRN 05/06/20 [History Confirmed 05/07/20 Last Taken 04/30/20] losartan 100 mg PO QAM 05/06/20 [History Confirmed 05/07/20 Last Taken 05/05/20] levofloxacin 750 mg PO DAILY #4 tab 05/10/20 [Rx Last Taken Unknown] prednisone 40 mg PO QAMCC #10 tab 05/10/20 [Rx Last Taken Unknown] tamsulosin [Flomax] 0.4 mg PO QDAY #30 cap 05/10/20 [Rx Last Taken Unknown] COURSE Hospital Course Hospital course: . Discharge diagnosis: Acute hypoxic respiratory failure/pulmonary fibrosis Time Spent with Patient Time attestation: Total time spent providing and/or coordinating discharge services: EXAM Constitutional Vitals: Temp Pulse Resp BP Pulse Ox 98.6 F 70 20 95/63 94 05/10/20 11:49 05/10/20 11:49 05/10/20 11:49 05/10/20 11:49 05/10/20 11:49 Discharge Data Data Completed and Pending Labs on day of discharge: Labs from last 24 hours 05/10/20 05/10/20 05/06/20 05:20 05:20 21:48 WBC 12.6 H RBC 4.16 L Hgb 11.9 L Hct 40.5 L MCV 97.4 MCH 28.6 MCHC 29.4 L RDW 13.7 Plt Count 363 MPV 10.2 Neut % (Auto) 82.0 H Lymph % (Auto) 7.0 L [place] % (Auto) 10.9 Eos % (Auto) 0 Baso % (Auto) 0.1 Lymph # (Auto) 0.88 L [place] # (Auto) 1.37 H Eos # (Auto) 0 Baso # (Auto) 0.01 Absolute Neutrophils 10.35 H Sodium 136 Potassium 5.0 Chloride 100 Carbon Dioxide 30 Anion Gap 6.0 L BUN 34 H Creatinine 1.0 GFR Calculation 76 Glucose 110 H Uric Acid 5.3 Calcium 8.2 L Phosphorus 4.0 Magnesium 2.3 Total Bilirubin 0.2 Direct Bilirubin < 0.2 GGT 28 AST 27 ALT 41 H Alkaline Phosphatase 87 Lactate Dehydrogenase 251 H Total Protein 6.8 Albumin 2.5 L Globulin 4.3 H Albumin/Globulin Ratio 0.6 L Triglycerides 81 Ur L.pneumophila Ag Not detected Preliminary micro results at discharge 05/06/20 10:46 Blood Culture - Preliminary Blood 05/06/20 10:55 Blood Culture - Preliminary Blood Gram positive bacillus Discharge Plan Patient/Caregiver Discharge Instructions Activity: increase activity as tolerated and wear oxygen at all times Diet: Regular Diet Instructions: How to Stop Smoking (GEN), Cigarette Smoking and Your Health (GEN), COPD (Chronic Obstructive Pulmonary Disease) (DC), Hypoxia (GEN), Pneumonia (GEN) Activity Restrictions/Additional Instructions: Follow-up pulmonology on May 29 Need outpatient sleep oximetry once stable baseline Continue oxygen at 6 to 8 L to maintain sats 90 to 92% Continue steroid for additional 10 days Continue oral Levaquin for additional 4 days Follow-up with urology for urine retention evaluation of BPH. Continue Flomax Return to ER worsening fever chills or shortness of breath This discharge packet is provided to you to help keep you informed about your care. We want to ensure you get everything you need when you go home. You will also be receiving a call from us in a few days to follow up with you and see how you are doing since your discharge. This gives us a chance to listen to any concerns you maybe experiencing since you were discharged or any additional needs you may have, as well as providing us feedback on your care experience. We strive to always provide excellent care and thank you for your feedback and for choosing [facility]. Prescriptions: New prednisone 20 mg Tablet 40 mg PO QAC Qty: 10 RF: 0 levofloxacin [levofloxacin] 750 MG tablet 750 mg PO DAILY Qty: 4 RF: 0 tamsulosin [Flomax] 0.4 mg capsule 0.4 mg PO QDAY Qty: 30 RF: 0 Continued loperamide [Imodium A-D] 2 mg tablet 2 mg PO Q6H PRN (Reason: loose stool) Qty: 60 RF: 0 (DME) Oxygen cylinder Qty: 1 RF: 12 budesonide 0.5 mg/2 mL suspension for nebulization 0.5 mg INHALATION BID Qty: 120 RF: 12 zolpidem [Ambien] 10 mg tablet 10 mg PO QHS PRN (Reason: sleep) Qty: 30 RF: 2 atorvastatin 20 mg tablet 20 mg PO QHS Qty: 90 RF: 3 atenolol 100 mg tablet 50 mg PO BID Qty: 180 RF: 4 vitamin B complex tablet 1 tab PO DAILY RF: 0 nitroglycerin [Nitrostat] 0.4 mg tablet, sublingual 0.4 mg SUBLINGUAL DIRECTED RF: 0 aspirin [Adult Low Dose Aspirin] 81 mg tablet,delayed release (DR/EC) 81 mg PO BID RF: 0 ibuprofen 200 mg tablet 200 mg PO QDP PRN (Reason: Pain) RF: 0 hydrocodone-acetaminophen 5-325 mg tablet 1 tab PO Q4-6HP PRN (Reason: Pain) RF: 0 losartan 100 mg tablet 100 mg PO QAM RF: 0 Anoro Ellipta 62.5-25 mcg/actuation blister with device 1 inh INHALATION QAM RF: 0 amlodipine 5 mg tablet 5 mg PO QAM RF: 0 Other Ambulatory Orders: Home Oxygen Order (Routine) Location: None Selected Ordered By: Madan Parisi OT Discharge Order (Routine) Location: None Selected Ordered By: Madan Parisi Physical Therapy at Discharge - General (Routine) Location: None Selected Ordered By: Madan Parisi Follow Up Plan Follow up with: Nura Hays MD [Physician] - 05/29/20 10:45 am (Continue with your currently scheduled appt.) Irish Garcia ARNP [Primary Care Provider] - (Please call and schedule a hospital follow up appointment.) Patient Disposition: Xfer SNF Rehab Potential: Undetermined I certify that the patient requires SNF services: Yes Overall status at discharge: patient is progressing back to baseline Discharge Orders: Discharge Order (Routine); Ordered 05/10/20 Ordered By: Madan Parisi QUALITY VTE Deep Vein Thrombosis/Pulmonary Embolism Present on Admission: No
== END 2020-05-10 13:57 | DRG 189 ==
LOC: ED 08:14 → ICU 14:38 → MEDSUR 05-09 18:52
PROVIDERS: ADMIT Internal Medicine; ATTEND Internal Medicine

== ENCOUNTER 2020-06-16 20:13 | Inpatient (IN) ==
[2020-06-16] MEDS ORDERED: methylPREDNISolone SOD SUCC 125 MG/2 ML VIAL IV ONE (20:23)
[2020-06-16] MEDS ORDERED: DOXYCYCLINE 100 MG in DEXTROSE 5% IN WATER 100 ML IV ONE (20:23)
[2020-06-16] MEDS ORDERED: IPRATROPIUM/ALBUTEROL 3 ML AMPUL.NEB NEB ONE (20:24)
[2020-06-16] MEDS ORDERED: DEXTROSE 5% IN WATER 100 ML IV ONE (20:37)
[2020-06-16] MEDS ORDERED: cefTRIAXone 1 GM VIAL IV ONE (20:43)
--- NOTE | 2020-06-16 20:46 | Emergency Department Note ---
HPI General Chief complaint: Shortness of Breath/Dyspnea Stated complaint: SOB Time Seen by Provider: 06/16/20 20:23 Source: patient Mode of arrival: ambulatory Limitations: other History of Present Illness HPI Narrative: Narrative: 70-year-old male presents via EMS with shortness of breath. States he had a surgery about an month or 2 ago at [place] and ever since then he has had a "lung problem". States today he went out to eat at [employer] and ever since then cannot catch his breath. Is normally on 3 to 4 L of oxygen at home. No matter how much he turned his oxygen up once he got home he can never catch his breath. Has had a low-grade fever throughout today. Has a chronic cough and does not think it is any worse than usual. No nausea, vomiting, or diarrhea. When EMS arrived his sats were in the 50s on his home O2. He was given 2 albuterol treatments in route and placed on BiPAP. On arrival his sats are in the low 90s on BiPAP. No chest pain. No sore throat or ear pain. No nasal congestion. No abdominal pain. No rash. States he does have some pedal edema but is chronic. Related Data Home Medications Medication Instructions Recorded Confirmed nitroglycerin 0.4 mg sublingual 0.4 mg SUBLINGUAL DIRECTED tab 12/20/18 05/29/20 tablet ibuprofen 200 mg tablet 200 mg PO QDP PRN tab 10/11/19 05/29/20 aspirin 81 mg tablet,delayed 81 mg PO BID tab 04/15/20 05/29/20 release Anoro Ellipta 1 inh INHALATION QAM 05/06/20 05/29/20 amlodipine 5 mg PO QAM 05/06/20 05/29/20 losartan 100 mg PO QAM 05/06/20 05/29/20 bisacodyl 10 mg rectal suppository 10 mg OR QDAY PRN 05/29/20 05/29/20 docusate sodium 100 mg capsule 100 mg PO QDAY 05/29/20 05/29/20 melatonin 5 mg tablet 8 mg PO QDAY tab 05/29/20 05/29/20 menthol 1.1 mg lozenges mg PO 05/29/20 05/29/20 mineral oil 118 ml OR QDAY PRN 05/29/20 05/29/20 montelukast 10 mg tablet 10 mg PO QDAY 05/29/20 05/29/20 polyethylene glycol 3350 17 gram 17 g PO QDAY 05/29/20 05/29/20 oral powder packet prednisone 20 mg tablet 20 mg PO QAMCC tab 05/29/20 trazodone 50 mg tablet 25 mg PO QHS 05/29/20 05/29/20 Previous Rx's Medication Instructions Recorded Oxygen cylinder #1 ea 02/03/18 budesonide 0.5 mg/2 mL suspension 0.5 mg INHALATION BID #120 ml 07/28/19 for nebulization loperamide 2 mg tablet 2 mg PO Q6H PRN #60 tab 04/23/20 atenolol 100 mg tablet 50 mg PO BID #180 tab 04/29/20 atorvastatin 20 mg tablet 20 mg PO QHS #90 tab 04/29/20 hydrocodone-acetaminophen 1 tab PO Q4-6HP PRN #10 tab 05/10/20 tamsulosin [Flomax] 0.4 mg PO QDAY #30 cap 05/10/20 Allergies Allergy/AdvReac Type Severity Reaction Status Date / Time No Known Drug Allergies Allergy Verified 06/16/20 20:24 Review of Systems ROS ROS Narrative: Narrative: All systems ED: reviewed and negative except as stated. [facility] Narrative Patient History Narrative: Narrative: Medical/Surgical/Family History All Active Problems (Updated 06/16/20 @ 21:46 by Makenna Coyne [facility]) Hypoxia (Acute) Emphysematous bleb of lung (Acute) Pneumonia (Acute) Diarrhea (Acute) Acute dyspnea (Acute) History of left hip replacement (Acute) History of surgery (Chronic) Pre-op examination (Acute) H/O hernia repair (Acute ~1957) History of tonsillectomy (Acute ~1956) Pneumothorax (Acute) Myocardial infarction (Chronic) Chronic respiratory insufficiency (Chronic) Pulmonary nodule (Chronic) Restrictive lung disease (Chronic) MRI of brain abnormal (Chronic) Hyperlipidemia (Chronic) Proteinuria (Chronic) Microalbuminuria (Chronic) Insomnia (Chronic) Right shoulder strain (Chronic) Hemorrhoids (Chronic) Smoker (Chronic) Bronchitis (Chronic) Lumbar back pain (Chronic) Malignant neoplasm of upper lobe, right bronchus or lung (Chronic) Actinic keratosis (Chronic) Impaired oxygenation (Chronic) COPD, severe (Chronic) Pain in left hip (Chronic) Diverticulosis of colon (without mention of hemorrhage) (Chronic) Adenomatous colon polyp (Chronic) Skin lesion (Chronic) Hypoxemia (Chronic) Asbestosis (Chronic) Asbestos exposure (Chronic) Right shoulder injury (Chronic 10/20/11) Metabolic syndrome (Chronic) CAD (coronary artery disease) (Chronic ~1995) History of myocardial infarction (Chronic) COPD (chronic obstructive pulmonary disease) (Chronic) Malignant neoplasm of upper lobe of right lung (Chronic) COPD with chronic bronchitis (Chronic) Medical History Actinic keratosis Adenomatous colon polyp Asbestos exposure Asbestosis Bronchitis CAD (coronary artery disease) (~1995) Chronic respiratory insufficiency COPD (chronic obstructive pulmonary disease) COPD with chronic bronchitis COPD, severe Diverticulosis of colon (without mention of hemorrhage) Emphysematous bleb of lung Hemorrhoids High blood pressure History of myocardial infarction Hyperlipidemia Hypoxemia Impaired oxygenation Insomnia Lumbar back pain Malignant neoplasm of upper lobe of right lung Malignant neoplasm of upper lobe, right bronchus or lung Metabolic syndrome Microalbuminuria MRI of brain abnormal Myocardial infarction Oxygen dependent Pain in left hip Pneumonia Proteinuria Pulmonary nodule Restrictive lung disease Right shoulder injury (10/20/11) full thickness tear Right shoulder strain Skin lesion Sleep apnea Smoker Surgical History H/O hernia repair (~1957) H/O repair of left rotator cuff H/O repair of right rotator cuff History of colonoscopy (02/24/11) History of coronary artery stent placement (~1995) right History of lobectomy of lung (~05/2016) right side History of surgery Thoracoscopic apical bleb resection and talc pleurodesis - Dr. Anish Zepeda History of tonsillectomy (~1956) Hx of appendectomy Family History Mother , age 90-Dementia No problems noted. Social History Smoking Status: Former smoker Alcohol Intake Frequency: 0-2 drinks per day Substance Use: does not use Exam Narrative Narrative: Narrative: General Limitations: other General appearance: Present alert Head Head: Present atraumatic and normocephalic Eye Eye: Present normal appearance; Absent conjunctival injection ENT ENT: Present normal exam, normal oropharynx, mucous membranes moist, TM's normal bilaterally and normal external ear exam Neck Neck: Present normal inspection and trachea midline; Absent lymphadenopathy Respiratory Respiratory: Present respiratory distress (mod on arrival with labored breathing, on bipap with sats 92-93% on arrival) and wheezes (expiratory and inspiratory wheezing t/o, worse on left, not much air movement throughout) Cardiovascular Cardiovascular: Present tachycardia and normal heart sounds Extremities Extremities: Present normal capillary refill and pedal edema (1+ bilat); Absent tenderness, joint swelling and calf tenderness Neurological Neurological: Present alert and oriented X3 Psychiatric Psychiatric: Present normal affect and normal mood Skin Skin: Present warm (WNL), dry and intact; Absent diaphoretic and normal color (pale on arrival) Course Course Course Narrative: At 2144 I did discuss the case with warehouse production worker and request a bed for admit. However we are still waiting for labs to come back. I did give report to supervising ER physician Dr. Vela to assume care due to shift change. At this time patient has O2 sats in the 99 to 100% on BiPAP, his color is greatly improved and his effort of breathing is greatly improved. We will go ahead and get a repeat ABG at request of hospitalist. We are also awaiting further Covid testing although the rapid was negative. Patient does have a temperature of greater than 101 so we did give him some Tylenol. Vital Signs Vital signs: Vital Signs Temperature 100.7 F H 06/16/20 20:14 Pulse Rate 139 H 06/16/20 20:14 Respiratory Rate 27 H 06/16/20 20:14 Blood Pressure 119/90 06/16/20 20:14 Pulse Oximetry (%) 93 06/16/20 20:14 Temperature 101.9 F H 06/16/20 21:51 Pulse Rate 123 H 06/16/20 21:51 Respiratory Rate 39 H 06/16/20 21:51 Blood Pressure 119/60 06/16/20 21:46 Pulse Oximetry (%) 97 06/16/20 21:51 MDM MDM Narrative Medical decision making narrative: Narrative: Lab Data Result diagrams: 06/16/20 20:45 06/16/20 20:45 Labs: Lab Results 06/16/20 Range/Units 20:45 POC Hct 39 L (41-55) % POC Sodium 141 (133-145) mEq/L POC Potassium 4.1 (3.3-5.1) mEql/L POC Chloride 103 (96-108) mEq/L POC Total CO2 28 (22-30) mmol/L POC BUN 23 H (6-20) mg/dL POC Creatinine 1.2 (0.6-1.2) mg/dL POC Glucose 205 H (70-105) mg/dL POC WB Ioniz Calcium 1.07 L (1.16-1.32) mmEq/L ED POC Tests ED POC Tests: LY - Influenza A Negative LY - Influenza B Negative LY - SARS Antigen Negative Discharge Plan Patient/Caregiver Discharge Instructions Pt seen by SALES ACCOUNT EXECUTIVE/PA only: No Clinical Impression: Pneumonia, Hypoxia Patient Disposition: Still a Patient Condition: Serious Follow up with: Irish Garcia ARNP [Primary Care Provider] - Prescriptions: No Action loperamide [Imodium A-D] 2 mg tablet 2 mg PO Q6H PRN (Reason: loose stool) Qty: 60 RF: 0 (DME) Oxygen cylinder Qty: 1 RF: 12 budesonide 0.5 mg/2 mL suspension for nebulization 0.5 mg INHALATION BID Qty: 120 RF: 12 atorvastatin 20 mg tablet 20 mg PO QHS Qty: 90 RF: 3 atenolol 100 mg tablet 50 mg PO BID Qty: 180 RF: 4 nitroglycerin [Nitrostat] 0.4 mg tablet, sublingual 0.4 mg SUBLINGUAL DIRECTED RF: 0 aspirin [Adult Low Dose Aspirin] 81 mg tablet,delayed release (DR/EC) 81 mg PO BID RF: 0 trazodone 50 mg tablet 25 mg PO QHS RF: 0 prednisone 20 mg tablet 20 mg PO QAMCC RF: 0 melatonin 5 mg tablet 8 mg PO QDAY RF: 0 menthol 1.1 mg lozenge PO RF: 0 docusate sodium [Colace] 100 mg capsule 100 mg PO QDAY RF: 0 montelukast [Singulair] 10 mg tablet 10 mg PO QDAY RF: 0 polyethylene glycol 3350 [Miralax] 17 gram powder in packet 17 g PO QDAY RF: 0 mineral oil [Fleet Mineral Oil] Enema 118 ml OR QDAY PRNRF: 0 bisacodyl [Dulcolax (bisacodyl)] 10 mg suppository 10 mg OR QDAY PRNRF: 0 ibuprofen 200 mg tablet 200 mg PO QDP PRN (Reason: Pain) RF: 0 losartan 100 mg tablet 100 mg PO QAM RF: 0 Anoro Ellipta 62.5-25 mcg/actuation blister with device 1 inh INHALATION QAM RF: 0 amlodipine 5 mg tablet 5 mg PO QAM RF: 0 tamsulosin [Flomax] 0.4 mg capsule 0.4 mg PO QDAY Qty: 30 RF: 0 hydrocodone-acetaminophen 5-325 mg tablet 1 tab PO Q4-6HP PRN (Reason: Pain) Qty: 10 RF: 0
[2020-06-16 21:04] LABS: POC Blood Urea Nitrogen 23 mg/dL (6-20); POC CO2 28 mmol/L (22-30); POC Calcium, Ionized 1.07 mmEq/L (1.16-1.32); POC Chloride 103 mEq/L (96-108); POC Creatinine 1.2 mg/dL (0.6-1.2); POC Glucose, Random 205 mg/dL (70-105); POC Hematocrit 39 % (41-55); POC Potassium 4.1 mEql/L (3.3-5.1); POC Sodium 141 mEq/L (133-145)
[2020-06-16] MEDS ORDERED: ACETAMINOPHEN 325 MG TABLET PO ONE (21:57)
[2020-06-16] MEDS ORDERED: 0.9 % SODIUM CHLORIDE 1,000 ML IV ONE (21:57)
[2020-06-16 22:03] LABS: Basophils # (Auto) 0.03 K/mcL (0.00-0.20); Basophils % (Auto) 0.3 % (0.0-2.0); Eosinophils # (Auto) 0.12 K/mcL (0.00-0.70); Eosinophils % (Auto) 1.1 % (0.0-7.0); Hematocrit 39.9 % (41.0-55.0); Hemoglobin 12.4 g/dL (13.5-16.5); Lymphocytes # (Auto) 0.72 K/mcL (1.50-4.80); Lymphocytes % (Auto) 6.6 % (15.0-49.0); Mean Cell Volume 93.9 fL (80.0-100.0); Mean Corpuscular HGB Conc 31.1 g/dL (31.0-36.0); Mean Platelet Volume 10.1 fL (7.4-10.4); Monocytes # (Auto) 1.14 K/mcL (0.10-0.90); Monocytes % (Auto) 10.5 % (1.0-12.0); Neutrophils % (Auto) 81.5 % (38.0-78.0); Platelet Count 213 K/mcL (140-440); RBC 4.25 M/mcL (4.50-5.90); Red Cell Distribution Width 14.6 % (11.5-14.5); WBC 10.9 K/mcL (4.5-11.0)
[2020-06-16 22:24] LABS: ALT/SGPT 10 U/L (<40); AST/SGOT 16 U/L (<40); Albumin 3.1 gm/dL (3.2-5.2); Albumin/Globulin Ratio 0.8 (1.0-2.3); Alkaline Phosphatase 86 U/L (39-117); Bilirubin,Total 0.3 mg/dL (0.1-1.0); Blood Urea Nitrogen 22 mg/dL (8-23); Calcium 8.3 mg/dL (8.6-10.4); Carbon Dioxide 26 mmol/L (22-30); Chloride 101 mmol/L (96-108); Globulin 3.7 gm/dL (2.2-3.7); Glomerular Filtration Rate 68; Glucose 201 mg/dL (70-105)
--- NOTE | 2020-06-17 00:42 | Internal Med History&Physical ---
HPI History of Present Illness Patient information: Note initiated : 06/17/20 at 12:12 am Service Date, if different from initiated Date: [] Patient: Jed Dias 70 y/o M admitted on for Shortness of breath. Chief Complaint: [shortness of breath] History of present illness: Mr. 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 In the ED, the patient was found to be hypoxic and started on BiPAP. Vitals were remarkable for a fever 101.9 F, tachypnea and tachycardia. EKG is shows sinus tachycardia. Chest x-ray shows diffuse bilateral opacities, increased compared to baseline. Of note, the patient does have bilateral trace at baseline likely interstitial lung disease related to asbestosis. Routine labs did not reveal any leukocytosis, overall similar to prior lab results. Respiratory panel was negative, including Covid PCR, influenza a and B PCR, RSV PCR. Patient was given Solu-Medrol, ceftriaxone and doxycycline in the ED. By the time I evaluated the patient, he had improved significantly however continues to desaturate in the BiPAP removed. The patient says that at baseline he requires 3 to 4 L oxygen sedation. He was recently discharged from a snf facility where he was receiving rehab. He says that he was feeling okay up until the day of hospital admission. We discussed the plan of care, most likely diagnosis the infectious process causing respiratory symptoms in the setting of severely compromised baseline lung function. We discussed CODE STATUS prior to admission, the patient wishes to be DNR. Review of systems Constitutional: positive for fever Eyes: no vision changes or pain Cardiovascular: no chest pain, no palpitations Respiratory: positive for shortness of breath and cough Gastrointestinal: no abdominal pain, no nausea, vomiting, or diarrhea Genitourinary: no dysuria or difficulty voiding Musculoskeletal: no arthralgia or myalgia Integumentary: no skin lesion or wound Neurological: no focal weakness or numbness Psychiatric: no anxiety or depression PFSH PFSH All Active Problems (Updated 06/16/20 @ 21:46 by Makenna Coyne [facility]) Hypoxia (Acute) Emphysematous bleb of lung (Acute) Pneumonia (Acute) Diarrhea (Acute) Acute dyspnea (Acute) History of left hip replacement (Acute) History of surgery (Chronic) Pre-op examination (Acute) H/O hernia repair (Acute ~1957) History of tonsillectomy (Acute ~1956) Pneumothorax (Acute) Myocardial infarction (Chronic) Chronic respiratory insufficiency (Chronic) Pulmonary nodule (Chronic) Restrictive lung disease (Chronic) MRI of brain abnormal (Chronic) Hyperlipidemia (Chronic) Proteinuria (Chronic) Microalbuminuria (Chronic) Insomnia (Chronic) Right shoulder strain (Chronic) Hemorrhoids (Chronic) Smoker (Chronic) Bronchitis (Chronic) Lumbar back pain (Chronic) Malignant neoplasm of upper lobe, right bronchus or lung (Chronic) Actinic keratosis (Chronic) Impaired oxygenation (Chronic) COPD, severe (Chronic) Pain in left hip (Chronic) Diverticulosis of colon (without mention of hemorrhage) (Chronic) Adenomatous colon polyp (Chronic) Skin lesion (Chronic) Hypoxemia (Chronic) Asbestosis (Chronic) Asbestos exposure (Chronic) Right shoulder injury (Chronic 10/20/11) Metabolic syndrome (Chronic) CAD (coronary artery disease) (Chronic ~1995) History of myocardial infarction (Chronic) COPD (chronic obstructive pulmonary disease) (Chronic) Malignant neoplasm of upper lobe of right lung (Chronic) COPD with chronic bronchitis (Chronic) Medical History Actinic keratosis Adenomatous colon polyp Asbestos exposure Asbestosis Bronchitis CAD (coronary artery disease) (~1995) Chronic respiratory insufficiency COPD (chronic obstructive pulmonary disease) COPD with chronic bronchitis COPD, severe Diverticulosis of colon (without mention of hemorrhage) Emphysematous bleb of lung Hemorrhoids High blood pressure History of myocardial infarction Hyperlipidemia Hypoxemia Impaired oxygenation Insomnia Lumbar back pain Malignant neoplasm of upper lobe of right lung Malignant neoplasm of upper lobe, right bronchus or lung Metabolic syndrome Microalbuminuria MRI of brain abnormal Myocardial infarction Oxygen dependent Pain in left hip Pneumonia Proteinuria Pulmonary nodule Restrictive lung disease Right shoulder injury (10/20/11) full thickness tear Right shoulder strain Skin lesion Sleep apnea Smoker Surgical History H/O hernia repair (~1957) H/O repair of left rotator cuff H/O repair of right rotator cuff History of colonoscopy (02/24/11) History of coronary artery stent placement (~1995) right History of lobectomy of lung (~05/2016) right side History of surgery Thoracoscopic apical bleb resection and talc pleurodesis - Dr. Anish Zepeda History of tonsillectomy (~1957) Hx of appendectomy Family History Mother , age 90-Dementia No problems noted. Social History household members: alone marital status: single occupational status: retired occupation: [employer] physical activity: none smoking status: Former smoker quit date: 04/26/15 alcohol intake frequency: 0-2 drinks per day substance use type: does not use seatbelt use: always MEDS/ALLERGIES Home Medications and Allergies Home Medications Medication Instructions Recorded Confirmed Type Oxygen cylinder #1 ea 02/03/18 05/29/20 Rx nitroglycerin 0.4 mg sublingual 0.4 mg SUBLINGUAL DIRECTED tab 12/20/18 06/16/20 History tablet budesonide 0.5 mg/2 mL suspension 0.5 mg INHALATION BID #120 ml 07/28/19 06/16/20 Rx for nebulization ibuprofen 200 mg tablet 200 mg PO QDP PRN tab 10/11/19 06/16/20 History aspirin 81 mg tablet,delayed 81 mg PO BID tab 04/15/20 06/16/20 History release atenolol 100 mg tablet 50 mg PO BID #180 tab 04/29/20 06/16/20 Rx atorvastatin 20 mg tablet 20 mg PO QHS #90 tab 04/29/20 06/16/20 Rx Anoro Ellipta 1 inh INHALATION QAM 05/06/20 06/16/20 History amlodipine 5 mg PO QAM 05/06/20 06/16/20 History losartan 100 mg PO QAM 05/06/20 06/16/20 History tamsulosin [Flomax] 0.4 mg PO QDAY #30 cap 05/10/20 06/16/20 Rx bisacodyl 10 mg rectal suppository 10 mg [place] QDAY PRN 05/29/20 06/16/20 History docusate sodium 100 mg capsule 100 mg PO QDAY 05/29/20 05/29/20 History melatonin 5 mg tablet 8 mg PO QDAY tab 05/29/20 06/16/20 History montelukast 10 mg tablet 10 mg PO QDAY 05/29/20 06/16/20 History polyethylene glycol 3350 17 gram 17 g PO QDAY 05/29/20 05/29/20 History oral powder packet trazodone 50 mg tablet 25 mg PO QHS 05/29/20 06/16/20 History Allergies Allergy/AdvReac Type Severity Reaction Status Date / Time No Known Drug Allergies Allergy Verified 06/16/20 20:24 EXAM Constitutional Vitals: Temp Pulse Resp BP Pulse Ox 100.0 F H 112 H 39 H 109/64 96 06/16/20 22:54 06/16/20 23:59 06/16/20 23:59 06/16/20 23:31 06/16/20 23:59 Additional findings Additional findings: Head: Atraumatic, normal inspection. Eyes: normal appearance, no scleral icterus. Neck: full ROM Respiratory: tachypnea, bilateral breath sounds present, no wheezing appreciated Cardiovascular: regular tachycardia, S1, S2. GI/Abdominal: soft, nontender, no guarding. Extremities: full range of motion, nontender. Neurological: CN II-XII intact, intact motor, intact sensation. Psychiatric: normal mood. Skin: warm, normal color DATA Data Completed and Pending Labs: Labs from last 24 hours 06/16/20 06/16/20 06/16/20 20:46 20:45 20:45 WBC 10.9 RBC 4.25 L Hgb 12.4 L Hct 39.9 L POC Hct MCV 93.9 MCH 29.2 MCHC 31.1 RDW 14.6 H Plt Count 213 MPV 10.1 Neut % (Auto) 81.5 H Lymph % (Auto) 6.6 L [place] % (Auto) 10.5 Eos % (Auto) 1.1 Baso % (Auto) 0.3 Lymph # (Auto) 0.72 L [place] # (Auto) 1.14 H Eos # (Auto) 0.12 Baso # (Auto) 0.03 Absolute Neutrophils 8.88 H VBG Lactic Acid 1.7 POC Sodium Sodium POC Potassium Potassium POC Chloride Chloride Carbon Dioxide POC Total CO2 Anion Gap POC BUN BUN Creatinine POC Creatinine GFR Calculation Glucose POC Glucose Calcium POC WB Ioniz Calcium Total Bilirubin AST ALT Alkaline Phosphatase Troponin T < 0.01 NT-Pro-B Natriuret Pep Total Protein Albumin Globulin Albumin/Globulin Ratio 06/16/20 20:45 WBC RBC Hgb Hct POC Hct 39 L MCV MCH MCHC RDW Plt Count MPV Neut % (Auto) Lymph % (Auto) [place] % (Auto) Eos % (Auto) Baso % (Auto) Lymph # (Auto) [place] # (Auto) Eos # (Auto) Baso # (Auto) Absolute Neutrophils VBG Lactic Acid POC Sodium 141 Sodium 139 POC Potassium 4.1 Potassium 4.1 POC Chloride 103 Chloride 101 Carbon Dioxide 26 POC Total CO2 28 Anion Gap 12.0 POC BUN 23 H BUN 22 Creatinine 1.1 POC Creatinine 1.2 GFR Calculation 68 Glucose 201 H POC Glucose 205 H Calcium 8.3 L POC WB Ioniz Calcium 1.07 L Total Bilirubin 0.3 AST 16 ALT 10 Alkaline Phosphatase 86 Troponin T NT-Pro-B Natriuret Pep 311.0 H Total Protein 6.8 Albumin 3.1 L Globulin 3.7 Albumin/Globulin Ratio 0.8 L A/P Narrative A/P Narrative: Assessment: 70 year old male with history of oxygen dependent COPD (3-4 l/min, restrictive lung disease secondary to asbestosis, CAD, hypertension, BPH, obesity admitted for acute on chronic hypoxic respiratory failure presumably secondary to community acquired pneumonia and a COPD exacerbation. Marked improvement in the ED with usual therapysuggests these are the cause of respiratory failure however differential includes atypical pneumonia (including viral-non SARS-Co-V2 or influenza), CHF, inflammatory/hypersensitivity pneumonitis, VTE and an underlying malignant process. #Acute on chronic hypoxic respiratory failure #COPD exacerbation #Restrictive lung disease d/t asbestosis #Hx CAD #Htn #BPH Plan: -Admit to PCU w/ telemetry, pulse oximetry monitoring -Solumedrol, Duonebs Q4, Albuterol nebs prn-hold home COPD inhalers for now -Ceftriaxone and Azithromycin -BiPAP w/ RT -Oxygen supplementation-target 88-92% sats -Sputum gram stain and culture -MRSA screen -Blood cultures -Expand workup if the patient does not continue to improve w/ CT chest, procal/CRP, comprehensive resp panel. -Continue Atenolol but hold norvasc and losartan for now for low normal BP. -Continue ASA, atorvastatin, nitro SL. -Continue Flomax. -DVT ppx: Lovenox -Code status: DNR -Disposition: unclear at this time Time Spent With Patient Time: Total time spent is greater than 50% in coordination of care (as documented) at patient's floor/unit and/or counseling patient:
[2020-06-17] MEDS ORDERED: ALBUTEROL SULFATE 2.5 MG/3 ML NEBULIZER NEB PRN (00:54)
[2020-06-17] MEDS ORDERED: LACTULOSE 20 GM/30 ML ORAL.SOL PO PRN (00:54)
[2020-06-17] MEDS ORDERED: ONDANSETRON 4 MG/2 ML VIAL IV PRN (00:54)
[2020-06-17] MEDS ORDERED: SENNOSIDES 1 TABLET PO PRN (00:54)
[2020-06-17] MEDS: cefTRIAXone 2 GM in DEXTROSE 5% IN WATER 50 ML IV SCH ×2 (01:04→15:33)
[2020-06-17] MEDS ORDERED: cefTRIAXone 1 GM VIAL IV ONE (01:04)
[2020-06-17] MEDS: 0.9 % SODIUM CHLORIDE 10 ML SYRINGE IV SCH ×6 (01:20→20:37)
[2020-06-17] MEDS: AZITHROMYCIN 500 MG in DEXTROSE 5% IN WATER 250 ML IV SCH ×2 (01:25→20:37)
[2020-06-17] MEDS ORDERED: cefTRIAXone 1 GM VIAL ONE (01:33)
--- NOTE | 2020-06-17 02:57 | XRay Report ---
CLINICAL INFORMATION: sob COMPARISON: 05/03/2019 and 05/08/2020 FINDINGS: Moderate cardiomegaly is unchanged. Mediastinum is unremarkable. The pulmonary vasculature is not well visualized but appears mildly congested Severe COPD and moderate interstitial fibrosis throughout both mid and lower lungs is, again, appreciated. Large bullae dominating both apical regions. Airspace disease has increased in density in both mid and lower lungs, from prior exam, which suggests superimposed infiltrates possibly aspiration. Moderate pleural thickening in the right apex demonstrates long-term stability and presumably represent fibrosis. IMPRESSION: 1. Severe COPD and pulmonary fibrosis in both mid and lower lungs. Airspace density has increased since exam over one month prior suggesting superimposed edema or infiltrate. Pulmonary vessels are also now mildly congested. Patient may have mild CHF and/or infectious or aspiration pneumonia. Please correlate with the BNP and other clinical evidence for CHF Interpreted and Authenticated by: Ousmane Shields 06/17/20
[2020-06-17] MEDS: IPRATROPIUM/ALBUTEROL 3 ML AMPUL.NEB NEB SCH ×6 (03:00→22:52)
[2020-06-17 06:03] LABS: Appearance,Urine CLEAR (Clear); Bacteria,Urine 0 /hpf (0); Bilirubin,Urine Negative (Negative); Color,Urine Yellow; Culture Indicated,Urine No; Glucose,Urine (UA) Negative (Negative); Ketones,Urine Negative (Negative); Leukocyte Esterase,Urine Negative /ug (Negative); Nitrate,Urine Negative (Negative); Protein,Urine 100 mg/dL (Negative); Specific Gravity,Urine 1.021 (1.000-1.035); Urine Blood Negative (Negative); Urine Hyaline Cast 2 /lph (0-2); Urine RBC 0 /hpf (0-3); Urine Squamous Epithelial Cell 0 /hpf (0-4); Urine WBC 0 /hpf (0-4); Urobilinogen,Urine Negative
[2020-06-17] MEDS ORDERED: NITROGLYCERIN 0.4 MG TAB.SUBL SL PRN (06:06)
[2020-06-17 06:07] LABS: ALT/SGPT 10 U/L (<40); AST/SGOT 15 U/L (<40); Albumin 2.8 gm/dL (3.2-5.2); Albumin/Globulin Ratio 0.8 (1.0-2.3); Alkaline Phosphatase 75 U/L (39-117); Bilirubin,Direct < 0.2 mg/dL (<0.3); Bilirubin,Total 0.2 mg/dL (0.1-1.0); Blood Urea Nitrogen 20 mg/dL (8-23); Calcium 8.3 mg/dL (8.6-10.4); Carbon Dioxide 31 mmol/L (22-30); Chloride 105 mmol/L (96-108); Globulin 3.5 gm/dL (2.2-3.7); Glomerular Filtration Rate 68; Glucose 168 mg/dL (70-105); Lactate Dehydrogenase 310 U/L (135-225); Phosphorous 4.2 mg/dL (2.5-4.5); Triglycerides 26 mg/dL (<150); Uric Acid 5.6 mg/dL (2.5-8.0)
--- NOTE | 2020-06-17 07:09 | Emergency Department Note ---
SOB HPI General Chief Complaint: Shortness of Breath/Dyspnea Stated Complaint: SOB Time Seen by Provider: 06/16/20 20:23 Source: patient Mode of arrival: ambulatory Limitations: other History of Present Illness HPI Narrative: Narrative: I took over care of this patient from the midlevel provider at 10 PM. Related Data Home Medications Medication Instructions Recorded Confirmed nitroglycerin 0.4 mg sublingual 0.4 mg SUBLINGUAL DIRECTED tab 12/20/18 06/16/20 tablet aspirin 81 mg tablet,delayed 81 mg PO BID tab 04/15/20 06/16/20 release Anoro Ellipta 1 inh INHALATION QAM 05/06/20 06/16/20 amlodipine 5 mg PO QAM 05/06/20 06/16/20 losartan 100 mg PO QAM 05/06/20 06/16/20 melatonin 5 mg tablet 10 mg PO QDAY tab 05/29/20 06/17/20 montelukast 10 mg tablet 10 mg PO QDAY 05/29/20 06/16/20 trazodone 50 mg tablet 50 mg PO QHS 05/29/20 06/17/20 prednisone 10 mg PO QDAY 06/17/20 06/17/20 zolpidem [Ambien] 10 mg PO HS 06/17/20 06/17/20 Previous Rx's Medication Instructions Recorded Oxygen cylinder #1 ea 02/03/18 budesonide 0.5 mg/2 mL suspension 0.5 mg INHALATION BID #120 ml 07/28/19 for nebulization atenolol 100 mg tablet 50 mg PO BID #180 tab 04/29/20 atorvastatin 20 mg tablet 20 mg PO QHS #90 tab 04/29/20 tamsulosin [Flomax] 0.4 mg PO QDAY #30 cap 05/10/20 Allergies Allergy/AdvReac Type Severity Reaction Status Date / Time No Known Drug Allergies Allergy Verified 06/16/20 20:24 Review of Systems ROS ROS Narrative: Narrative: PFSH Narrative Patient History Narrative: Narrative: Medical/Surgical/Family History All Active Problems (Updated 06/17/20 @ 07:12 by Bi Vela MD) Hypoxia (Acute) Acute exacerbation of chronic obstructive pulmonary disease (Acute) Emphysematous bleb of lung (Acute) Pneumonia (Acute) Diarrhea (Acute) Acute dyspnea (Acute) History of left hip replacement (Acute) History of surgery (Chronic) Pre-op examination (Acute) H/O hernia repair (Acute ~1957) History of tonsillectomy (Acute ~1956) Pneumothorax (Acute) Myocardial infarction (Chronic) Chronic respiratory insufficiency (Chronic) Pulmonary nodule (Chronic) Restrictive lung disease (Chronic) MRI of brain abnormal (Chronic) Hyperlipidemia (Chronic) Proteinuria (Chronic) Microalbuminuria (Chronic) Insomnia (Chronic) Right shoulder strain (Chronic) Hemorrhoids (Chronic) Smoker (Chronic) Bronchitis (Chronic) Lumbar back pain (Chronic) Malignant neoplasm of upper lobe, right bronchus or lung (Chronic) Actinic keratosis (Chronic) Impaired oxygenation (Chronic) COPD, severe (Chronic) Pain in left hip (Chronic) Diverticulosis of colon (without mention of hemorrhage) (Chronic) Adenomatous colon polyp (Chronic) Skin lesion (Chronic) Hypoxemia (Chronic) Asbestosis (Chronic) Asbestos exposure (Chronic) Right shoulder injury (Chronic 10/20/11) Metabolic syndrome (Chronic) CAD (coronary artery disease) (Chronic ~1995) History of myocardial infarction (Chronic) COPD (chronic obstructive pulmonary disease) (Chronic) Malignant neoplasm of upper lobe of right lung (Chronic) COPD with chronic bronchitis (Chronic) Medical History Actinic keratosis Adenomatous colon polyp Asbestos exposure Asbestosis Bronchitis CAD (coronary artery disease) (~1995) Chronic respiratory insufficiency COPD (chronic obstructive pulmonary disease) COPD with chronic bronchitis COPD, severe Diverticulosis of colon (without mention of hemorrhage) Emphysematous bleb of lung Hemorrhoids High blood pressure History of myocardial infarction Hyperlipidemia Hypoxemia Impaired oxygenation Insomnia Lumbar back pain Malignant neoplasm of upper lobe of right lung Malignant neoplasm of upper lobe, right bronchus or lung Metabolic syndrome Microalbuminuria MRI of brain abnormal Myocardial infarction Oxygen dependent Pain in left hip Pneumonia Proteinuria Pulmonary nodule Restrictive lung disease Right shoulder injury (10/20/11) full thickness tear Right shoulder strain Skin lesion Sleep apnea Smoker Surgical History H/O hernia repair (~1957) H/O repair of left rotator cuff H/O repair of right rotator cuff History of colonoscopy (02/24/11) History of coronary artery stent placement (~1995) right History of lobectomy of lung (~05/2016) right side History of surgery Thoracoscopic apical bleb resection and talc pleurodesis - Dr. Anish Zepeda History of tonsillectomy (~1957) Hx of appendectomy Family History Mother , age 90-Dementia No problems noted. Social History Smoking Status: Former smoker Alcohol Intake Frequency: 0-2 drinks per day Substance Use: does not use Exam Narrative Narrative: Narrative: General Limitations: other Course Vital Signs Vital signs: Vital Signs Temperature 100.7 F H 06/16/20 20:14 Pulse Rate 139 H 06/16/20 20:14 Respiratory Rate 27 H 06/16/20 20:14 Blood Pressure 119/90 06/16/20 20:14 Pulse Oximetry (%) 93 06/16/20 20:14 Temperature 99.0 F 06/17/20 04:00 Pulse Rate 87 06/17/20 05:53 Respiratory Rate 27 H 06/17/20 05:53 Blood Pressure 111/76 06/17/20 04:00 Pulse Oximetry (%) 92 06/17/20 05:53 MDM MDM Narrative Medical decision making narrative: Narrative: This patient was continued on BiPAP while in the emergency room and improved markedly. He was given Solu-Medrol 125 mg IV doxycycline 100 mg IV and DuoNeb treatments. Covid testing was negative. Lab Data Lab results reviewed: Yes I reviewed the patient's lab results. Lab results narrative: Lab work was unremarkable with normal white count and normal lactic acid. A blood gas was also not too remarkable with a pH of 7.37 PO2 of 71 that florinda to 91 on a repeat and PCO2 of 55. I did discuss the patient with the hospitalist and he will be admitted to the hospital. Result diagrams: 06/16/20 20:45 06/17/20 04:53 Labs: Lab Results 06/16/20 06/16/20 06/16/20 Range/Units 20:45 20:45 20:45 WBC 10.9 (4.5-11.0) K/mcL RBC 4.25 L (4.50-5.90) M/mcL Hgb 12.4 L (13.5-16.5) g/dL Hct 39.9 L (41.0-55.0) % POC Hct 39 L (41-55) % MCV 93.9 (80.0-100.0) fL MCH 29.2 (26.0-34.0) pg MCHC 31.1 (31.0-36.0) g/dL RDW 14.6 H (11.5-14.5) % Plt Count 213 (140-440) K/mcL MPV 10.1 (7.4-10.4) fL Neut % (Auto) 81.5 H (38.0-78.0) % Lymph % (Auto) 6.6 L (15.0-49.0) % [place] % (Auto) 10.5 (1.0-12.0) % Eos % (Auto) 1.1 (0.0-7.0) % Baso % (Auto) 0.3 (0.0-2.0) % Lymph # (Auto) 0.72 L (1.50-4.80) K/mcL [place] # (Auto) 1.14 H (0.10-0.90) K/mcL Eos # (Auto) 0.12 (0.00-0.70) K/mcL Baso # (Auto) 0.03 (0.00-0.20) K/mcL Absolute Neutrophils 8.88 H (1.80-8.00) K/mcL VBG Lactic Acid (0.5-2.0) mmol/L POC Sodium 141 (133-145) mEq/L Sodium 139 (133-145) mmol/L POC Potassium 4.1 (3.3-5.1) mEql/L Potassium 4.1 (3.3-5.1) mmol/L POC Chloride 103 (96-108) mEq/L Chloride 101 (96-108) mmol/L Carbon Dioxide 26 (22-30) mmol/L POC Total CO2 28 (22-30) mmol/L Anion Gap 12.0 (8.0-16.0) POC BUN 23 H (6-20) mg/dL BUN 22 (8-23) mg/dL Creatinine 1.1 (0.7-1.2) mg/dL POC Creatinine 1.2 (0.6-1.2) mg/dL GFR Calculation 68 Glucose 201 H (70-105) mg/dL POC Glucose 205 H (70-105) mg/dL Calcium 8.3 L (8.6-10.4) mg/dL POC WB Ioniz Calcium 1.07 L (1.16-1.32) mmEq/L Total Bilirubin 0.3 (0.1-1.0) mg/dL AST 16 (<40) U/L ALT 10 (<40) U/L Alkaline Phosphatase 86 (39-117) U/L Troponin T < 0.01 (<0.03) ng/mL NT-Pro-B Natriuret Pep 311.0 H (<125.0) pg/mL Total Protein 6.8 (5.9-8.4) gm/dL Albumin 3.1 L (3.2-5.2) gm/dL Globulin 3.7 (2.2-3.7) gm/dL Albumin/Globulin Ratio 0.8 L (1.0-2.3) 06/16/20 Range/Units 20:46 WBC (4.5-11.0) K/mcL RBC (4.50-5.90) M/mcL Hgb (13.5-16.5) g/dL Hct (41.0-55.0) % POC Hct (41-55) % MCV (80.0-100.0) fL MCH (26.0-34.0) pg MCHC (31.0-36.0) g/dL RDW (11.5-14.5) % Plt Count (140-440) K/mcL MPV (7.4-10.4) fL Neut % (Auto) (38.0-78.0) % Lymph % (Auto) (15.0-49.0) % [place] % (Auto) (1.0-12.0) % Eos % (Auto) (0.0-7.0) % Baso % (Auto) (0.0-2.0) % Lymph # (Auto) (1.50-4.80) K/mcL [place] # (Auto) (0.10-0.90) K/mcL Eos # (Auto) (0.00-0.70) K/mcL Baso # (Auto) (0.00-0.20) K/mcL Absolute Neutrophils (1.80-8.00) K/mcL VBG Lactic Acid 1.7 (0.5-2.0) mmol/L POC Sodium (133-145) mEq/L Sodium (133-145) mmol/L POC Potassium (3.3-5.1) mEql/L Potassium (3.3-5.1) mmol/L POC Chloride (96-108) mEq/L Chloride (96-108) mmol/L Carbon Dioxide (22-30) mmol/L POC Total CO2 (22-30) mmol/L Anion Gap (8.0-16.0) POC BUN (6-20) mg/dL BUN (8-23) mg/dL Creatinine (0.7-1.2) mg/dL POC Creatinine (0.6-1.2) mg/dL GFR Calculation Glucose (70-105) mg/dL POC Glucose (70-105) mg/dL Calcium (8.6-10.4) mg/dL POC WB Ioniz Calcium (1.16-1.32) mmEq/L Total Bilirubin (0.1-1.0) mg/dL AST (<40) U/L ALT (<40) U/L Alkaline Phosphatase (39-117) U/L Troponin T (<0.03) ng/mL NT-Pro-B Natriuret Pep (<125.0) pg/mL Total Protein (5.9-8.4) gm/dL Albumin (3.2-5.2) gm/dL Globulin (2.2-3.7) gm/dL Albumin/Globulin Ratio (1.0-2.3) ED POC Tests ED POC Tests: LY - Influenza A Negative LY - Influenza B Negative LY - SARS Antigen Negative Radiology Data Radiology results reviewed: Yes I reviewed the patient's radiology results. Radiology results narrative: X-ray was read as showing pulmonary fibrosis severe COPD and question of infiltrates in the lung. Discharge Plan Patient/Caregiver Discharge Instructions Pt seen by SENIOR ANIMATOR/PA only: No Clinical Impression: Pneumonia, Hypoxia, Acute exacerbation of chronic obstructive pulmonary disease Patient Disposition: Xfer As Inpt ([facility] Condition: Serious Discharge Date/Time: 06/17/20 00:20
[2020-06-17] MEDS: ATENOLOL 50 MG TABLET PO SCH ×2 (08:04→20:36)
[2020-06-17] MEDS: DOCUSATE SODIUM 100 MG CAPSULE PO SCH ×2 (08:04→20:38)
[2020-06-17] MEDS: ENOXAPARIN 40 MG/0.4 ML SYRINGE SQ SCH (08:04)
[2020-06-17] MEDS: methylPREDNISolone SOD SUCC 125 MG/2 ML VIAL IV SCH ×2 (08:04→20:37)
[2020-06-17] MEDS: POLYETHYLENE GLYCOL 3350 17 GM PACKET PO SCH (08:04)
[2020-06-17] MEDS ORDERED: ASPIRIN 81 MG TAB.CHEW PO SCH (09:00)
[2020-06-17] MEDS ORDERED: TAMSULOSIN 0.4 MG CAPSULE PO SCH (09:00)
[2020-06-17] MEDS ORDERED: MONTELUKAST 10 MG TABLET PO SCH (09:00)
[2020-06-17] MEDS: ASPIRIN 81 MG TAB.CHEW PO SCH (09:31)
[2020-06-17] MEDS: amLODIPine 5 MG TABLET PO SCH (09:32)
[2020-06-17] MEDS: ANORO ELLIPTA INH SCH (10:04)
--- NOTE | 2020-06-17 11:27 | Internal Med Progress Note ---
SUBJECTIVE Subjective Patient information: Note initiated : 06/17/20 at 11:14 am Service Date, if different from initiated Date: [] Patient: Jed Dias 70 y/o M admitted on 06/17/20 for Shortness of breath. Chief Complaint: [shortness of breath] Interval history: Mr. 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 In the ED, the patient was found to be hypoxic and started on BiPAP. Vitals were remarkable for a fever 101.9 F, tachypnea and tachycardia. EKG is shows sinus tachycardia. Chest x-ray shows diffuse bilateral opacities, increased compared to baseline. Of note, the patient does have bilateral trace at baseline likely interstitial lung disease related to asbestosis. Routine labs did not reveal any leukocytosis, overall similar to prior lab results. Respiratory panel was negative, including Covid PCR, influenza a and B PCR, RSV PCR. Patient was given Solu-Medrol, ceftriaxone and doxycycline in the ED. By the time I evaluated the patient, he had improved significantly however continues to desaturate in the BiPAP removed. The patient says that at baseline he requires 3 to 4 L oxygen sedation. He was recently [facility] from a [facility] facility where he was receiving [facility]hab. He says that he was feeling okay up until the day of hospital admission. We discussed the plan of care, most likely diagnosis the infectious process causing respiratory symptoms in the setting of severely compromised baseline lung function. We discussed CODE STATUS prior to admission, the patient wishes to be DNR. 06/17 Off BiPAP this morning and on nasal canula O2, feeling ok, able to work with PT. Fevers resolved, overall improvement. Constitutional Vitals: Vital Signs Temp Pulse Resp BP Pulse Ox 97.9 F 86 21 135/78 94 06/17/20 08:00 06/17/20 11:01 06/17/20 11:01 06/17/20 08:00 06/17/20 11:01 Period Temp Pulse Resp BP Sys/Ford Pulse Ox Last 24 Hr 97.9 F-101.9 F 82-139 15-50 94-135/56-90 91-97 Intake and Output 06/16/20 06/17/20 06/17/20 21:59 05:59 13:59 Intake Total 200 1370 240 Output Total 100 100 Balance 200 1270 140 Weight 101.605 kg 104.099 kg Intake & Output: Intake & Output 06/16/20 06/17/20 06/17/20 21:59 05:59 13:59 Intake Total 200 1370 240 Output Total 100 100 Balance 200 1270 140 Weight 101.605 kg 104.099 kg Intake: IV 200 1250 Sodium Chloride 0.9% 1,000 ml @ 1000 Wide Open IV [facility] Rx#: [id number] Zithromax 500 mg In Dextrose 5% 250 in Water 250 ml @ 250 mls/hr IV Q24H [facility] Rx#:[id number] Dextrose 5% in Water 100 ml @ 0 100 mls/hr IV .STK-MED ONE Rx#: [id number] Vibramycin 100 mg In Dextrose 5 100 % in Water 100 ml @ 100 mls/hr IV ONCE ONE Rx#:[id number] Oral 120 240 Output: Void Amount 100 100 Other: Meal Breakfast Percent of Meal Consumed 100% Urine Appearance Clear Urine Color Dark Yellow Dark Yellow Urine Odor Normal Strong Additional findings Additional findings: Head: Atraumatic, normal inspection. Eyes: normal appearance, no scleral icterus. Neck: full ROM Respiratory: bilateral breath sounds, no crackles or wheezing. Cardiovascular: normal rate and rhythm, S1, S2. GI/Abdominal: soft, nontender, no guarding. Extremities: full range of motion, nontender. Neurological: CN II-XII intact, intact motor, intact sensation. Psychiatric: normal mood. Skin: warm, normal color OBJ DATA Labs CBC & Chem 7: 06/16/20 20:45 06/17/20 04:53 Labs: Abnormal Lab Results 06/17/20 06/17/20 06/17/20 05:05 04:53 04:53 RBC Hgb Hct POC Hct RDW Neut % (Auto) Lymph % (Auto) Lymph # (Auto) [place] # (Auto) Absolute Neutrophils Carbon Dioxide Anion Gap POC BUN Glucose POC Glucose Calcium POC WB Ioniz Calcium Lactate Dehydrogenase C-Reactive Protein 12.80 H NT-Pro-B Natriuret Pep Albumin Albumin/Globulin Ratio Procalcitonin 0.17 H Urine Protein 100 A 06/17/20 06/16/20 06/16/20 04:53 20:45 20:45 RBC 4.25 L Hgb 12.4 L Hct 39.9 L POC Hct 39 L RDW 14.6 H Neut % (Auto) 81.5 H Lymph % (Auto) 6.6 L Lymph # (Auto) 0.72 L [place] # (Auto) 1.14 H Absolute Neutrophils 8.88 H Carbon Dioxide 31 H Anion Gap 6.0 L POC BUN 23 H Glucose 168 H 201 H POC Glucose 205 H Calcium 8.3 L 8.3 L POC WB Ioniz Calcium 1.07 L Lactate Dehydrogenase 310 H C-Reactive Protein NT-Pro-B Natriuret Pep 311.0 H Albumin 2.8 L 3.1 L Albumin/Globulin Ratio 0.8 L 0.8 L Procalcitonin Urine Protein Meds: Medications Albuterol Sulfate (Albuterol Sulfate 2.5 Mg/3 Ml Nebulizer) 2.5 mg NEB Q2HP PRN PRN Reason: Dyspnea Albuterol/Ipratropium (Ipratropium/Albuterol 3 Ml Ampul.Neb) 3 ml NEB Q4HRT [facility] Last Admin: 06/17/20 10:59 Dose: 3 ml Documented by: Amlodipine Besylate (Amlodipine 5 Mg Tablet) 5 mg PO DAILY [facility] Last Admin: 06/17/20 09:32 Dose: 5 mg Documented by: Aspirin (Aspirin 81 Mg Tab.Chew) 81 mg PO DAILY [facility] Last Admin: 06/17/20 09:31 Dose: Not Given Documented by: Atenolol (Atenolol 50 Mg Tablet) 50 mg PO BID [facility] Last Admin: 06/17/20 08:04 Dose: 50 mg Documented by: Atorvastatin Calcium (Atorvastatin 20 Mg Tablet) 20 mg PO QHS [facility] Docusate Sodium (Docusate Sodium 100 Mg Capsule) 100 mg PO BID [facility] Last Admin: 06/17/20 08:04 Dose: Not Given Documented by: Enoxaparin Sodium (Enoxaparin 40 Mg/0.4 Ml Syringe) 40 mg SQ DAILY [facility] Last Admin: 06/17/20 08:04 Dose: 40 mg Documented by: Ceftriaxone Sodium 2 gm/ (Dextrose) 50 mls @ 100 mls/hr IV Q24H [facility]; Protocol Last Admin: 06/17/20 01:04 Dose: Not Given Documented by: Azithromycin 500 mg/ Dextrose 250 mls @ 250 mls/hr IV Q24H [facility]; Protocol Stop: 06/19/20 01:53 Last Infusion: 06/17/20 02:52 Dose: Infused Documented by: Lactulose (Lactulose 20 Gm/30 Ml Oral.Nona) 10 gm PO DAILYP PRN PRN Reason: Constipation Melatonin (Melatonin 3 Mg Tablet) 6 mg PO HS [facility] Methylprednisolone Sodium Succinate (Methylprednisolone Sod Succ 125 Mg/2 Ml Vial) 62.5 mg IV Q12 [facility] Last Admin: 06/17/20 08:04 Dose: 62.5 mg Documented by: Montelukast Sodium (Montelukast 10 Mg Tablet) 10 mg PO HS [facility] Nitroglycerin (Nitroglycerin 0.4 Mg Tab.Subl) 0.4 mg SL Q5M PRN PRN Reason: Chest Pain Ondansetron HCl (Ondansetron 4 Mg/2 Ml Vial) 4 mg IV Q4HP PRN; Protocol PRN Reason: Nausea And Vomiting Anoro Ellipta ( Umeclidinium- Vilanterol 62.5 Mcg- 25 Mcg/Actuation) Inhaler 1 dose INH DAILY [facility] Last Admin: 06/17/20 10:04 Dose: 1 dose Documented by: Polyethylene Glycol (Polyethylene Glycol 3350 17 Gm Packet) 17 gm PO QDAY [facility] Last Admin: 06/17/20 08:04 Dose: Not Given Documented by: Senna (Sennosides 1 Tablet) 2 tab PO HSP PRN PRN Reason: Constipation Sodium Chloride (0.9 % Sodium Chloride 10 Ml Syringe) 10 ml IV Q8 [facility] Last Admin: 06/17/20 05:23 Dose: Not Given Documented by: Tamsulosin HCl (Tamsulosin 0.4 Mg Capsule) 0.4 mg PO QDAY [facility] Last Admin: 06/17/20 08:03 Dose: 0.4 mg Documented by: Trazodone HCl (Trazodone Hcl 50 Mg Tablet) 50 mg PO [facility] Vitamin B Complex (Vitamin B Complex 1 Capsule) 1 cap PO DAILY [facility] A/P Narrative A/P Narrative: Assessment: 70 year old male with history of oxygen dependent COPD (3-4 l/min, restrictive lung disease/pulmonary fibrosis secondary to asbestosis, CAD, hypertension, BPH, obesity admitted for acute on chronic hypo xic respiratory failure presumably secondary to community acquired pneumonia and a COPD exacerbation. Marked improvement in the ED with usual therapy suggests these are the cause of respiratory failure. Chest xray shows bilateral interstitial process on top of chronic fibrosis suggestive of infiltrate vs edema. Was recently hospitalized for a similar presentation and received antibitics. Clinically does not appear to be CHF, recent TTE ECHO was ok. COVID PCR and Influenza A/B PCR negative. MRSA screen negative. #Acute on chronic hypoxic respiratory failure #Possible community acquired pneumonia-atypical #COPD exacerbation #Restrictive lung disease d/t asbestosis #Hx CAD #Htn #BPH Plan: -Continue in PCU today w/ telemetry, pulse oximetry monitoring -Solumedrol, Duonebs Q4, Albuterol nebs prn-hold home COPD inhalers for now -Ceftriaxone and Azithromycin -Oxygen supplementation-target 88-92% sats -Sputum gram stain and culture pending -Blood cultures-pending -Expand workup if the patient does not continue to improve w/ CT chest. -Continue Atenolol and norvasc, holding home losartan for now. -Continue ASA, atorvastatin, nitro SL. -Continue Flomax. -PT following -DVT ppx: Lovenox -Code status: DNR -Disposition: unclear at this time, possibly SNF Time Spent With Patient Time: Total time spent is greater than 50% in coordination of care (as documented) at patient's floor/unit and/or counseling patient: QUALITY VTE Deep Vein Thrombosis/Pulmonary Embolism Present on Admission: No
[2020-06-17] MEDS ORDERED: TAMSULOSIN 0.4 MG CAPSULE PO ONE (16:37)
[2020-06-17] MEDS: traZODone HCL 50 MG TABLET PO SCH (20:36)
[2020-06-17] MEDS: MONTELUKAST 10 MG TABLET PO SCH (20:36)
[2020-06-17] MEDS: MELATONIN 3 MG TABLET PO SCH (20:36)
[2020-06-17] MEDS: ATORVASTATIN 20 MG TABLET PO SCH (20:36)
[2020-06-17] MEDS ORDERED: traZODone HCL 50 MG TABLET PO SCH (21:00)
[2020-06-18] MEDS: IPRATROPIUM/ALBUTEROL 3 ML AMPUL.NEB NEB SCH ×4 (02:50→18:48)
[2020-06-18] MEDS: 0.9 % SODIUM CHLORIDE 10 ML SYRINGE IV SCH ×3 (05:31→21:36)
[2020-06-18 07:24] LABS: Hematocrit 39.6 % (41.0-55.0); Hemoglobin 11.6 g/dL (13.5-16.5); Mean Cell Volume 98.3 fL (80.0-100.0); Mean Corpuscular HGB Conc 29.3 g/dL (31.0-36.0); Mean Platelet Volume 10.4 fL (7.4-10.4); Platelet Count 229 K/mcL (140-440); RBC 4.03 M/mcL (4.50-5.90); Red Cell Distribution Width 14.6 % (11.5-14.5); WBC 16.6 K/mcL (4.5-11.0)
[2020-06-18] MEDS: POLYETHYLENE GLYCOL 3350 17 GM PACKET PO SCH (07:56)
[2020-06-18] MEDS: methylPREDNISolone SOD SUCC 125 MG/2 ML VIAL IV SCH ×2 (08:02→21:35)
[2020-06-18] MEDS: ENOXAPARIN 40 MG/0.4 ML SYRINGE SQ SCH (08:03)
[2020-06-18] MEDS: ASPIRIN 81 MG TAB.CHEW PO SCH (08:03)
[2020-06-18] MEDS: ATENOLOL 50 MG TABLET PO SCH ×2 (08:03→21:34)
[2020-06-18] MEDS: ANORO ELLIPTA INH SCH (08:03)
[2020-06-18] MEDS: DOCUSATE SODIUM 100 MG CAPSULE PO SCH ×2 (08:03→21:35)
[2020-06-18] MEDS: amLODIPine 5 MG TABLET PO SCH (08:03)
[2020-06-18] MEDS: TAMSULOSIN 0.4 MG CAPSULE PO SCH (08:03)
[2020-06-18 08:04] LABS: ALT/SGPT < 5 U/L (<40); AST/SGOT 20 U/L (<40); Albumin 1.9 gm/dL (3.2-5.2); Albumin/Globulin Ratio 0.4 (1.0-2.3); Alkaline Phosphatase 139 U/L (39-117); Bilirubin,Direct < 0.2 mg/dL (<0.3); Bilirubin,Total 0.2 mg/dL (0.1-1.0); Blood Urea Nitrogen 24 mg/dL (8-23); Calcium 8.7 mg/dL (8.6-10.4); Carbon Dioxide 25 mmol/L (22-30); Chloride 99 mmol/L (96-108); Globulin 4.8 gm/dL (2.2-3.7); Glomerular Filtration Rate 90; Glucose 123 mg/dL (70-105); Lactate Dehydrogenase 582 U/L (135-225); Phosphorous 3.9 mg/dL (2.5-4.5); Triglycerides 43 mg/dL (<150); Uric Acid 5.9 mg/dL (2.5-8.0)
[2020-06-18] MEDS: VITAMIN B COMPLEX 1 CAPSULE PO SCH (08:28)
[2020-06-18] MEDS: cefTRIAXone 2 GM in DEXTROSE 5% IN WATER 50 ML IV SCH (08:30)
[2020-06-18 08:42] LABS: Anisocytosis 1+ (None Seen); Band Neutrophils % 3 % (0-10); Hypochromasia 1+ (None Seen); Lymphocytes % 6 % (15-49); Monocytes % (Manual) 2 % (1-12); Platelet Estimate NORMAL (Normal); Polychromasia FEW (None Seen); RBC Morphology ABNORMAL (Normal); Segmented Neutrophils % 89 % (38-78); Toxic Granulation 1+ (None Seen)
--- NOTE | 2020-06-18 11:01 | Internal Med Progress Note ---
SUBJECTIVE Subjective Patient information: Note initiated : 06/18/20 at 10:59 am Service Date, if different from initiated Date: [] Patient: Jed Dias 70 y/o M admitted on 06/17/20 for Shortness of breath. Chief Complaint: [] Interval history: Mr. 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 In the ED, the patient was found to be hypoxic and started on BiPAP. Vitals were remarkable for a fever 101.9 F, tachypnea and tachycardia. EKG is shows sinus tachycardia. Chest x-ray shows diffuse bilateral opacities, increased compared to baseline. Of note, the patient does have bilateral trace at baseline likely interstitial lung disease related to asbestosis. Routine labs did not reveal any leukocytosis, overall similar to prior lab results. Respiratory panel was negative, including Covid PCR, influenza a and B PCR, RSV PCR. Patient was given Solu-Medrol, ceftriaxone and doxycycline in the ED. By the time I evaluated the patient, he had improved significantly however continues to desaturate in the BiPAP removed. The patient says that at baseline he requires 3 to 4 L oxygen sedation. He [facility] recently [facility] where [facility] receiving [facility]. He says that he was feeling okay up until the day of hospital admission. We discussed the plan of care, most likely diagnosis the infectious process causing respiratory symptoms in the setting of severely compromised baseline lung function. We discussed CODE STATUS prior to admission, the patient wishes to be DNR. 06/17 Off BiPAP this morning and on nasal canula O2, feeling ok, able to work with PT. Fevers resolved, overall improvement. 06/18 Feels ok at rest but continues to require significatntly more oxygen supplementation than baseline. CTA chest ordered. Constitutional Vitals: Vital Signs Temp Pulse Resp BP Pulse Ox 98.0 F 103 H 22 150/87 89 L 06/18/20 04:00 06/18/20 10:01 06/18/20 10:01 06/18/20 10:01 06/18/20 10:01 Period Temp Pulse Resp BP Sys/Ford Pulse Ox Last 24 Hr 98.0 F-98.4 F 78-107 16-40 107-150/69-88 83-97 Intake and Output 06/17/20 06/18/20 06/18/20 21:59 05:59 13:59 Intake Total 50 320 500 Output Total 1100 250 Balance -1050 70 500 Weight 104.496 kg Intake & Output: Intake & Output 06/17/20 06/18/20 06/18/20 21:59 05:59 13:59 Intake Total 50 320 500 Output Total 1100 250 Balance -1050 70 500 Weight 104.496 kg Intake: IV 50 300 Zithromax 500 mg In Dextrose 5% 250 in Water 250 ml @ 250 mls/hr IV Q24H [facility] Rx#:[id number] Rocephin 2 gm In Dextrose 5% in 50 50 Water 50 ml @ 100 mls/hr IV Q24H [facility] Rx#:[id number] Oral 0 320 200 Output: Urine Catheter Amount 850 Straight 850 Void Amount 250 250 Other: Meal Breakfast Percent of Meal Consumed 100% Feeding Ability Independent Urine Appearance Clear Urine Color Dark Yellow Additional findings Additional findings: Head: Atraumatic, normal inspection. Eyes: normal appearance, no scleral icterus. Neck: full ROM Respiratory: on 10 l/min oxygen nasal canula, no evidence of acute respiratory distress. Cardiovascular: normal rate and rhythm, S1, S2. GI/Abdominal: soft, nontender, no guarding. Extremities: full range of motion, nontender. Neurological: CN II-XII intact, intact motor, intact sensation. Psychiatric: normal mood. Skin: warm, normal color OBJ DATA Labs CBC & Chem 7: 06/18/20 05:00 06/18/20 05:00 Labs: Abnormal Lab Results 06/18/20 06/18/20 06/17/20 05:00 05:00 05:05 WBC 16.6 H RBC 4.03 L Hgb 11.6 L Hct 39.6 L POC Hct MCHC 29.3 L RDW 14.6 H Neut % (Auto) Lymph % (Auto) Lymph # (Auto) [place] # (Auto) Seg Neutrophils % 89 H Lymphocytes % 6 L Absolute Neutrophils WBC Morphology Abnormal A Toxic Granulation 1+ A RBC Morphology Abnormal A Polychromasia Few A Hypochromasia 1+ A Anisocytosis 1+ A Potassium 5.6 H Carbon Dioxide Anion Gap POC BUN BUN 24 H Glucose 123 H POC Glucose Calcium POC WB Ioniz Calcium Alkaline Phosphatase 139 H Lactate Dehydrogenase 582 H C-Reactive Protein NT-Pro-B Natriuret Pep Albumin 1.9 L Globulin 4.8 H Albumin/Globulin Ratio 0.4 L Procalcitonin Urine Protein 100 A 06/17/20 06/17/20 06/17/20 04:53 04:53 04:53 WBC RBC Hgb Hct POC Hct MCHC RDW Neut % (Auto) Lymph % (Auto) Lymph # (Auto) [place] # (Auto) Seg Neutrophils % Lymphocytes % Absolute Neutrophils WBC Morphology Toxic Granulation RBC Morphology Polychromasia Hypochromasia Anisocytosis Potassium Carbon Dioxide 31 H Anion Gap 6.0 L POC BUN BUN Glucose 168 H POC Glucose Calcium 8.3 L POC WB Ioniz Calcium Alkaline Phosphatase Lactate Dehydrogenase 310 H C-Reactive Protein 12.80 H NT-Pro-B Natriuret Pep Albumin 2.8 L Globulin Albumin/Globulin Ratio 0.8 L Procalcitonin 0.17 H Urine Protein 06/16/20 06/16/20 20:45 20:45 WBC RBC 4.25 L Hgb 12.4 L Hct 39.9 L POC Hct 39 L MCHC RDW 14.6 H Neut % (Auto) 81.5 H Lymph % (Auto) 6.6 L Lymph # (Auto) 0.72 L [place] # (Auto) 1.14 H Seg Neutrophils % Lymphocytes % Absolute Neutrophils 8.88 H WBC Morphology Toxic Granulation RBC Morphology Polychromasia Hypochromasia Anisocytosis Potassium Carbon Dioxide Anion Gap POC BUN 23 H BUN Glucose 201 H POC Glucose 205 H Calcium 8.3 L POC WB Ioniz Calcium 1.07 L Alkaline Phosphatase Lactate Dehydrogenase C-Reactive Protein NT-Pro-B Natriuret Pep 311.0 H Albumin 3.1 L Globulin Albumin/Globulin Ratio 0.8 L Procalcitonin Urine Protein Meds: Medications Albuterol Sulfate (Albuterol Sulfate 2.5 Mg/3 Ml Nebulizer) 2.5 mg NEB Q2HP PRN PRN Reason: Dyspnea Albuterol/Ipratropium (Ipratropium/Albuterol 3 Ml Ampul.Neb) 3 ml NEB Q6HRT [facility] Amlodipine Besylate (Amlodipine 5 Mg Tablet) 5 mg PO DAILY [facility] Last Admin: 06/18/20 08:03 Dose: 5 mg Documented by: Aspirin (Aspirin 81 Mg Tab.Chew) 81 mg PO DAILY [facility] Last Admin: 06/18/20 08:03 Dose: 81 mg Documented by: Atenolol (Atenolol 50 Mg Tablet) 50 mg PO BID [facility] Last Admin: 06/18/20 08:03 Dose: 50 mg Documented by: Atorvastatin Calcium (Atorvastatin 20 Mg Tablet) 20 mg PO QHS [facility] Last Admin: 06/17/20 20:36 Dose: 20 mg Documented by: Docusate Sodium (Docusate Sodium 100 Mg Capsule) 100 mg PO BID [facility] Last Admin: 06/18/20 08:03 Dose: 100 mg Documented by: Enoxaparin Sodium (Enoxaparin 40 Mg/0.4 Ml Syringe) 40 mg SQ DAILY [facility] Last Admin: 06/18/20 08:03 Dose: 40 mg Documented by: Ceftriaxone Sodium 2 gm/ (Dextrose) 50 mls @ 100 mls/hr IV Q24H [facility]; Protocol Last Infusion: 06/18/20 10:58 Dose: Infused Documented by: Azithromycin 500 mg/ Dextrose 250 mls @ 250 mls/hr IV Q24H [facility]; Protocol Stop: 06/19/20 01:53 Last Infusion: 06/18/20 07:56 Dose: Infused Documented by: Lactulose (Lactulose 20 Gm/30 Ml Oral.Nona) 10 gm PO DAILYP PRN PRN Reason: Constipation Melatonin (Melatonin 3 Mg Tablet) 6 [address] [facility] Last Admin: 06/17/20 20:36 Dose: 6 mg Documented by: Methylprednisolone Sodium Succinate (Methylprednisolone Sod Succ 125 Mg/2 Ml Vial) 62.5 mg IV Q12 [facility] Last Admin: 06/18/20 08:02 Dose: 62.5 mg Documented by: Montelukast Sodium (Montelukast 10 Mg Tablet) 10 mg PO [facility] Last Admin: 06/17/20 20:36 Dose: 10 mg Documented by: Nitroglycerin (Nitroglycerin 0.4 Mg Tab.Subl) 0.4 mg SL Q5M PRN PRN Reason: Chest Pain Ondansetron HCl (Ondansetron 4 Mg/2 Ml Vial) 4 mg IV Q4HP PRN; Protocol PRN Reason: Nausea And Vomiting Anoro Ellipta ( Umeclidinium- Vilanterol 62.5 Mcg- 25 Mcg/Actuation) Inhaler 1 dose INH DAILY [facility] Last Admin: 06/18/20 08:03 Dose: 1 dose Documented by: Polyethylene Glycol (Polyethylene Glycol 3350 17 Gm Packet) 17 gm PO QDAY [facility] Last Admin: 06/18/20 07:56 Dose: Not Given Documented by: Senna (Sennosides 1 Tablet) 2 tab PO HSP PRN PRN Reason: Constipation Sodium Chloride (0.9 % Sodium Chloride 10 Ml Syringe) 10 ml IV Q8 [facility] Last Admin: 06/18/20 05:31 Dose: 10 ml Documented by: Tamsulosin HCl (Tamsulosin 0.4 Mg Capsule) 0.8 mg PO QDAY [facility] Last Admin: 06/18/20 08:03 Dose: 0.8 mg Documented by: Trazodone HCl (Trazodone Hcl 50 Mg Tablet) 50 mg PO HS [facility] Last Admin: 06/17/20 20:36 Dose: 50 mg Documented by: Vitamin B Complex (Vitamin B Complex 1 Capsule) 1 cap PO DAILY [facility] Last Admin: 06/18/20 08:28 Dose: 1 cap Documented by: A/P Narrative A/P Narrative: Assessment: 70 year old male with history of oxygen dependent COPD (3-4 l/min at home), restrictive lung disease/pulmonary fibrosis secondary to asbestosis, CAD, hypertension, BPH, obesity admitted for acute on chronic hy poxic respiratory failure presumably secondary to community acquired pneumonia and a COPD exacerbation. Marked improvement in the ED with usual therapy suggests these are the cause of respiratory failure. Chest xray showed bilateral interstitial process on top of chronic fibrosis suggestive of infiltrate vs edema. Was recently hospitalized for a similar presentation and received antibiotics. Clinically does not appear to be CHF, recent TTE ECHO was ok. COVID PCR and Influenza A/B PCR negative. MRSA screen negative. #Acute on chronic hypoxic respiratory failure #Possible community acquired pneumonia-atypical #Restrictive lung disease/pulmonary fibrosis d/t asbestosis #Emphysema #Leukocytosis-likely secondary to steroid #Hx CAD #Htn #BPH Plan: -Continue in PCU today w/ telemetry, pulse oximetry monitoring -Solumedrol, decrease Duonebs to Q6 hrs, Albuterol nebs prn-hold home COPD inha lers for now -Ceftriaxone and Azithromycin -CTA chest -Oxygen supplementation-target 88-92% sats -Sputum gram stain and culture pending-moderate epithelial cells -Blood cultures-pending (NGTD) -Continue Atenolol and norvasc, resume home losartan. -Continue ASA, atorvastatin, nitro SL. -Continue Flomax. -PT following -DVT ppx: Lovenox -Code status: DNR -Disposition: probably home Time Spent With Patient Time: Total time spent is greater than 50% in coordination of care (as documented) at patient's floor/unit and/or counseling patient: QUALITY VTE Deep Vein Thrombosis/Pulmonary Embolism Present on Admission: No
[2020-06-18] MEDS ORDERED: IOPAMIDOL 100 ML BOTTLE IV ONE (11:18)
[2020-06-18 12:05] LABS: POC Blood Urea Nitrogen 26 mg/dL (6-20); POC CO2 29 mmol/L (22-30); POC Calcium, Ionized 1.14 mmEq/L (1.16-1.32); POC Chloride 101 mEq/L (96-108); POC Creatinine 0.9 mg/dL (0.6-1.2); POC Glucose, Random 142 mg/dL (70-105); POC Hematocrit 40 % (41-55); POC Potassium 4.4 mEql/L (3.3-5.1); POC Sodium 139 mEq/L (133-145)
--- NOTE | 2020-06-18 12:43 | Cat Scan Report ---
CLINICAL INFORMATION: Hypoxia COMPARISON: None. TECHNIQUE: 80 cc of Isovue-370 were injected intravenously. Using SmartPrep to maximize pulmonary artery opacification, .625mm helical slices were obtained from the lung apices through the lung bases. Following reconstruction, 2.5 mm sagittal, coronal, and axial reformations were processed. The exam was reviewed at mediastinal, lung, and bone windows. The exam was performed using radiation dose optimization techniques including, but not limited to, automated exposure control, adjustment of the mA and/or kV according to patient size and use of iterative reconstruction technique. FINDINGS: Mediastinal windows show the pulmonary arteries opacified - no evidence of embolus. The main pulmonary diameter is enlarged 3.3 cm, but stable and compatible with mild pulmonary hypertension. The thoracic aorta is normal diameter with diffuse intimal thickening. The heart is moderately enlarged with scattered fibrofatty and calcific plaque in the coronary arteries. Esophagus is grossly normal. Multiple moderately enlarged mediastinal lymph nodes including the inferior paraesophageal,subcarinal precarinal, AP window and peritracheal regions. They range up to 2.7 centimeter and are stable. Thyroid is mildly enlarged and inhomogeneous. Pulmonary parenchymal windows show moderate centrilobular and periseptal emphysema featuring chronic bronchitis with elevated lung volumes and dilatation/ wall thickening the bronchi including tubular and varicose bronchiectasis of the segmental and subsegmental bronchi throughout the lungs. The giant bullae, dominating the left lung apex, now contains a small air-fluid levels suggesting superinfection. Scattered regions of honeycombing fibrosis the periphery of both upper right middle and lower lobes are unchanged and suggestive of UIP.On prior exam, there was groundglass airspace disease throughout both lungs but this is improved dramatically particularly in the posterior segment left upper lobe spares segment left lower lobe where there were consolidated alveolar infiltrates. Scattered pleural calcifications noted. No effusions. Bones and soft tissues the chest wall show a moderate degenerative disc disease mid thoracic spine. Images should the superior abdomen show no abnormality. IMPRESSION: 1. No evidence of pulmonary embolus. 2. Moderate centrilobular and paraseptal emphysema. In addition to chronic bronchitis component, there are multiple tubular and varicose bronchiectatic segmental and subsegmental bronchi in both lungs - most prominent in both lower and right middle lobes. No change. 3. Scattered regions of honeycombing in the periphery of both upper, right middle and lower lobes suggesting superimposed UIP. Stable 4. Marked improvement in diffuse bilateral alveolar infiltrates - particularly in the posterior segment left upper lobe and the superior segment left lower lobe. There is, however a new air-fluid levels within the largest bullae in the left lung apex compatible with developing infection. 5. Moderate mediastinal and hilar adenopathy. These are likely reactive nodes from lung inflammation Interpreted and Authenticated by: Ousmane Shields 06/18/20
[2020-06-18] MEDS: PIPERACILLIN SODIUM/TAZOBACTAM 4.5 GM in DEXTROSE 5% IN WATER 50 ML IV SCH (16:26)
[2020-06-18] MEDS ORDERED: ALBUTEROL SULFATE 2.5 MG/3 ML NEBULIZER NEB PRN (21:08)
[2020-06-18] MEDS ORDERED: FUROSEMIDE 40 MG/4 ML VIAL IV ONE ×2 (21:32→21:44)
[2020-06-18] MEDS: MELATONIN 3 MG TABLET PO SCH (21:34)
[2020-06-18] MEDS: MONTELUKAST 10 MG TABLET PO SCH (21:34)
[2020-06-18] MEDS: ATORVASTATIN 20 MG TABLET PO SCH (21:35)
[2020-06-18] MEDS ORDERED: FUROSEMIDE 40 MG/4 ML VIAL IV SCH (21:35)
[2020-06-18] MEDS: traZODone HCL 50 MG TABLET PO SCH (21:35)
[2020-06-18] MEDS: AZITHROMYCIN 500 MG in DEXTROSE 5% IN WATER 250 ML IV SCH (21:35)
[2020-06-19] MEDS: PIPERACILLIN SODIUM/TAZOBACTAM 4.5 GM in DEXTROSE 5% IN WATER 50 ML IV SCH ×5 (00:02→23:22)
[2020-06-19] MEDS: IPRATROPIUM/ALBUTEROL 3 ML AMPUL.NEB NEB SCH ×4 (01:41→18:58)
--- NOTE | 2020-06-19 04:06 | XRay Report ---
CLINICAL INFORMATION: increasing dyspnea and oxygen demand COMPARISON: 06/16/2020 FINDINGS: Moderate cardiomegaly is unchanged. Mediastinum is unremarkable. Severe COPD with large biapical bullae and interstitial fibrosis throughout both mid and lower lungs again noted. Superimposed infiltrates throughout the mid and lower lungs shows modest improvement since the comparison exam two days ago. No definite effusions. Pleural fibrosis in the right apex demonstrates long-term stability. IMPRESSION: Severe COPD and moderate underlying interstitial fibrosis. Superimposed infiltrates in the mid and lower lung show modest improvement since exam two days ago Interpreted and Authenticated by: Ousmane Shields 06/19/20
[2020-06-19] MEDS: 0.9 % SODIUM CHLORIDE 10 ML SYRINGE IV SCH ×3 (06:13→21:06)
[2020-06-19 06:37] LABS: Hematocrit 38.3 % (41.0-55.0); Mean Cell Volume 92.7 fL (80.0-100.0); Mean Corpuscular HGB Conc 31.3 g/dL (31.0-36.0); Platelet Count 258 K/mcL (140-440); RBC 4.13 M/mcL (4.50-5.90); Red Cell Distribution Width 14.7 % (11.5-14.5); WBC 13.9 K/mcL (4.5-11.0)
[2020-06-19 07:15] LABS: ALT/SGPT 10 U/L (<40); AST/SGOT 14 U/L (<40); Albumin 2.8 gm/dL (3.2-5.2); Albumin/Globulin Ratio 0.7 (1.0-2.3); Alkaline Phosphatase 98 U/L (39-117); Bilirubin,Direct < 0.2 mg/dL (<0.3); Bilirubin,Total 0.2 mg/dL (0.1-1.0); Blood Urea Nitrogen 26 mg/dL (8-23); Calcium 8.5 mg/dL (8.6-10.4); Carbon Dioxide 34 mmol/L (22-30); Chloride 98 mmol/L (96-108); Globulin 3.9 gm/dL (2.2-3.7); Glomerular Filtration Rate 76; Glucose 149 mg/dL (70-105); Lactate Dehydrogenase 401 U/L (135-225); Phosphorous 4.9 mg/dL (2.5-4.5); Triglycerides 45 mg/dL (<150); Uric Acid 6.1 mg/dL (2.5-8.0)
[2020-06-19] MEDS: POLYETHYLENE GLYCOL 3350 17 GM PACKET PO SCH (07:57)
[2020-06-19] MEDS: DOCUSATE SODIUM 100 MG CAPSULE PO SCH ×2 (07:57→21:06)
[2020-06-19] MEDS: methylPREDNISolone SOD SUCC 125 MG/2 ML VIAL IV SCH ×2 (08:01→20:51)
[2020-06-19] MEDS: ENOXAPARIN 40 MG/0.4 ML SYRINGE SQ SCH (08:01)
[2020-06-19] MEDS: LOSARTAN 50 MG TABLET PO SCH (08:12)
[2020-06-19] MEDS: TAMSULOSIN 0.4 MG CAPSULE PO SCH (08:13)
[2020-06-19] MEDS: ATENOLOL 50 MG TABLET PO SCH ×2 (08:13→20:52)
[2020-06-19] MEDS: ASPIRIN 81 MG TAB.CHEW PO SCH (08:13)
[2020-06-19] MEDS: amLODIPine 5 MG TABLET PO SCH (08:13)
[2020-06-19] MEDS: ANORO ELLIPTA INH SCH (08:15)
[2020-06-19] MEDS: VITAMIN B COMPLEX 1 CAPSULE PO SCH (08:19)
[2020-06-19 08:21] LABS: Band Neutrophils % 2 % (0-10); Lymphocytes % 5 % (15-49); Monocytes % (Manual) 5 % (1-12); Platelet Estimate NORMAL (Normal); RBC Morphology NORMAL (Normal); Segmented Neutrophils % 88 % (38-78)
--- NOTE | 2020-06-19 13:02 | Internal Med Progress Note ---
SUBJECTIVE Subjective Patient information: Note initiated : 06/19/20 at 12:54 pm Service Date, if different from initiated Date: [] Patient: Jed Dias 70 y/o M admitted on 06/17/20 for Shortness of breath. Chief Complaint: [] Interval history: Mr. 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 In the ED, the patient was found to be hypoxic and started on BiPAP. Vitals were remarkable for a fever 101.9 F, tachypnea and tachycardia. EKG is shows sinus tachycardia. Chest x-ray shows diffuse bilateral opacities, increased compared to baseline. Of note, the patient does have bilateral trace at baseline likely interstitial lung disease related to asbestosis. Routine labs did not reveal any leukocytosis, overall similar to prior lab results. Respiratory panel was negative, including Covid PCR, influenza a and B PCR, RSV PCR. Patient was given Solu-Medrol, ceftriaxone and doxycycline in the ED. By the time I evaluated the patient, he had improved significantly however continues to desaturate in the BiPAP removed. The patient says that at baseline he requires 3 to 4 L oxygen sedation. He was recently discharged from a care home facility where he was receiving rehab. He says that he was feeling okay up until the day of hospital admission. We discussed the plan of care, most likely diagnosis the infectious process causing respiratory symptoms in the setting of severely compromised baseline lung function. We discussed CODE STATUS prior to admission, the patient wishes to be DNR. 06/17 Off BiPAP this morning and on nasal canula O2, feeling ok, able to work with PT. Fevers resolved, overall improvement. 06/18 Feels ok at rest but continues to require significantly more oxygen supplementation than baseline. CTA chest ordered-negative for PE however showed a new air fluid level in a large bullae consistent with a developing infection. Started on Zosyn, Ceftriaxone discontinued. Required escalating to HHFNC. Trial of lasix IV once. 06/19 On HHFNC, desaturates with minimal activity. Discussed the patient's goals of care in light of this new oxygen requirement and not improving much with treatment. May need to transfer to the higher level of care for pulmonology evaluation if he does not start to improve by tomorrow. Constitutional Vitals: Vital Signs Temp Pulse Resp BP Pulse Ox 98.4 F 84 29 H 140/85 95 06/19/20 12:00 06/19/20 06:00 06/19/20 12:00 06/19/20 12:00 06/19/20 12:13 Period Temp Pulse Resp BP Sys/Ford Pulse Ox Last 24 Hr 98.0 F-99.2 F 81-111 18-47 116-156/72-101 85-95 Intake and Output 06/18/20 06/19/20 06/19/20 21:59 05:59 13:59 Intake Total 230 300 250 Output Total 950 1925 650 Balance -720 -1625 -400 Weight 105.687 kg Intake & Output: Intake & Output 06/18/20 06/19/20 06/19/20 21:59 05:59 13:59 Intake Total 230 300 250 Output Total 950 1925 650 Balance -720 -1625 -400 Weight 105.687 kg Intake: IV 50 300 50 Zithromax 500 mg In Dextrose 5% 250 in Water 250 ml @ 250 mls/hr IV Q24H [facility] Rx#:[id number] Zosyn 4.5 gm In Dextrose 5% in 50 50 50 Water 50 ml @ 100 mls/hr IV Q6H [facility] Rx#:[id number] Oral 180 200 Output: Void Amount 950 1925 650 Other: Urine Appearance Clear Clear Clear Urine Color Dark Yellow Bright Yellow Bright Yellow Urine Odor Normal Normal Normal Stool Size Large Stool Color Brown Stool Consistency Formed # Bowel Movements 2 1 Additional findings Additional findings: Head: Atraumatic, normal inspection. Eyes: normal appearance, no scleral icterus. Neck: full ROM Respiratory: on HHFNC, respiratory distress while at rest Cardiovascular: normal rate and rhythm, S1, S2. GI/Abdominal: soft, nontender, no guarding. Extremities: full range of motion, nontender. Neurological: CN II-XII intact, intact motor, intact sensation. Psychiatric: normal mood. Skin: warm, normal color OBJ DATA Labs CBC & Chem 7: 06/19/20 05:15 06/19/20 05:15 Labs: Abnormal Lab Results 06/19/20 06/19/20 06/18/20 05:15 05:15 11:55 WBC 13.9 H RBC 4.13 L Hgb 12.0 L Hct 38.3 L POC Hct 40 L MCHC RDW 14.7 H Neut % (Auto) Lymph % (Auto) Lymph # (Auto) [place] # (Auto) Seg Neutrophils % 88 H Lymphocytes % 5 L Absolute Neutrophils WBC Morphology Toxic Granulation RBC Morphology Polychromasia Hypochromasia Anisocytosis Potassium Carbon Dioxide 34 H Anion Gap 6.0 L POC BUN 26 H BUN 26 H Glucose 149 H POC Glucose 142 H Calcium 8.5 L POC WB Ioniz Calcium 1.14 L Phosphorus 4.9 H Alkaline Phosphatase Lactate Dehydrogenase 401 H C-Reactive Protein NT-Pro-B Natriuret Pep Albumin 2.8 L Globulin 3.9 H Albumin/Globulin Ratio 0.7 L Procalcitonin Urine Protein 06/18/20 06/18/20 06/17/20 05:00 05:00 05:05 WBC 16.6 H RBC 4.03 L Hgb 11.6 L Hct 39.6 L POC Hct MCHC 29.3 L RDW 14.6 H Neut % (Auto) Lymph % (Auto) Lymph # (Auto) [place] # (Auto) Seg Neutrophils % 89 H Lymphocytes % 6 L Absolute Neutrophils WBC Morphology Abnormal A Toxic Granulation 1+ A RBC Morphology Abnormal A Polychromasia Few A Hypochromasia 1+ A Anisocytosis 1+ A Potassium 5.6 H Carbon Dioxide Anion Gap POC BUN BUN 24 H Glucose 123 H POC Glucose Calcium POC WB Ioniz Calcium Phosphorus Alkaline Phosphatase 139 H Lactate Dehydrogenase 582 H C-Reactive Protein NT-Pro-B Natriuret Pep Albumin 1.9 L Globulin 4.8 H Albumin/Globulin Ratio 0.4 L Procalcitonin Urine Protein 100 A 06/17/20 06/17/20 06/17/20 04:53 04:53 04:53 WBC RBC Hgb Hct POC Hct MCHC RDW Neut % (Auto) Lymph % (Auto) Lymph # (Auto) [place] # (Auto) Seg Neutrophils % Lymphocytes % Absolute Neutrophils WBC Morphology Toxic Granulation RBC Morphology Polychromasia Hypochromasia Anisocytosis Potassium Carbon Dioxide 31 H Anion Gap 6.0 L POC BUN BUN Glucose 168 H POC Glucose Calcium 8.3 L POC WB Ioniz Calcium Phosphorus Alkaline Phosphatase Lactate Dehydrogenase 310 H C-Reactive Protein 12.80 H NT-Pro-B Natriuret Pep Albumin 2.8 L Globulin Albumin/Globulin Ratio 0.8 L Procalcitonin 0.17 H Urine Protein 06/16/20 06/16/20 20:45 20:45 WBC RBC 4.25 L Hgb 12.4 L Hct 39.9 L POC Hct 39 L MCHC RDW 14.6 H Neut % (Auto) 81.5 H Lymph % (Auto) 6.6 L Lymph # (Auto) 0.72 L [place] # (Auto) 1.14 H Seg Neutrophils % Lymphocytes % Absolute Neutrophils 8.88 H WBC Morphology Toxic Granulation RBC Morphology Polychromasia Hypochromasia Anisocytosis Potassium Carbon Dioxide Anion Gap POC BUN 23 H BUN Glucose 201 H POC Glucose 205 H Calcium 8.3 L POC WB Ioniz Calcium 1.07 L Phosphorus Alkaline Phosphatase Lactate Dehydrogenase C-Reactive Protein NT-Pro-B Natriuret Pep 311.0 H Albumin 3.1 L Globulin Albumin/Globulin Ratio 0.8 L Procalcitonin Urine Protein Meds: Medications Albuterol Sulfate (Albuterol Sulfate 2.5 Mg/3 Ml Nebulizer) 2.5 mg NEB Q2HP PRN PRN Reason: Shortness Of Breath Albuterol/Ipratropium (Ipratropium/Albuterol 3 Ml Ampul.Neb) 3 ml NEB Q6HRT [facility] Last Admin: 06/19/20 08:20 Dose: 3 ml Documented by: Amlodipine Besylate (Amlodipine 5 Mg Tablet) 5 mg PO DAILY [facility] Last Admin: 06/19/20 08:13 Dose: 5 mg Documented by: Aspirin (Aspirin 81 Mg Tab.Chew) 81 mg PO DAILY [facility] Last Admin: 06/19/20 08:13 Dose: 81 mg Documented by: Atenolol (Atenolol 50 Mg Tablet) 50 mg PO BID [facility] Last Admin: 06/19/20 08:13 Dose: 50 mg Documented by: Atorvastatin Calcium (Atorvastatin 20 Mg Tablet) 20 mg PO QHS [facility] Last Admin: 06/18/20 21:35 Dose: 20 mg Documented by: Docusate Sodium (Docusate Sodium 100 Mg Capsule) 100 mg PO BID [facility] Last Admin: 06/19/20 07:57 Dose: Not Given Documented by: Enoxaparin Sodium (Enoxaparin 40 Mg/0.4 Ml Syringe) 40 mg SQ DAILY [facility] Last Admin: 06/19/20 08:01 Dose: 40 mg Documented by: Piperacillin Sod/Tazobactam (Sod 4.5 gm/ Dextrose) 50 mls @ 100 mls/hr IV Q6H [facility]; Protocol Last Admin: 06/19/20 12:07 Dose: 100 mls/hr Documented by: Lactulose (Lactulose 20 Gm/30 Ml Oral.Nona) 10 gm PO DAILYP PRN PRN Reason: Constipation Losartan Potassium (Losartan 50 Mg Tablet) 100 mg PO DAILY [facility] Last Admin: 06/19/20 08:12 Dose: 100 mg Documented by: Melatonin (Melatonin 3 Mg Tablet) 6 mg PO [facility] Last Admin: 06/18/20 21:34 Dose: 6 mg Documented by: Methylprednisolone Sodium Succinate (Methylprednisolone Sod Succ 125 Mg/2 Ml Vial) 62.5 mg IV Q12 [facility] Last Admin: 06/19/20 08:01 Dose: 62.5 mg Documented by: Montelukast Sodium (Montelukast 10 Mg Tablet) 10 mg PO [facility] Last Admin: 06/18/20 21:34 Dose: 10 mg Documented by: Nitroglycerin (Nitroglycerin 0.4 Mg Tab.Subl) 0.4 mg SL Q5M PRN PRN Reason: Chest Pain Ondansetron HCl (Ondansetron 4 Mg/2 Ml Vial) 4 mg IV Q4HP PRN; Protocol PRN Reason: Nausea And Vomiting Anoro Ellipta ( Umeclidinium- Vilanterol 62.5 Mcg- 25 Mcg/Actuation) Inhaler 1 dose INH DAILY [facility] Last Admin: 06/19/20 08:15 Dose: 1 dose Documented by: Polyethylene Glycol (Polyethylene Glycol 3350 17 Gm Packet) 17 gm PO QDAY [facility] Last Admin: 06/19/20 07:57 Dose: Not Given Documented by: Senna (Sennosides 1 Tablet) 2 tab PO HSP PRN PRN Reason: Constipation Sodium Chloride (0.9 % Sodium Chloride 10 Ml Syringe) 10 ml IV Q8 [facility] Last Admin: 06/19/20 12:08 Dose: 10 ml Documented by: Tamsulosin HCl (Tamsulosin 0.4 Mg Capsule) 0.8 mg PO QDAY [facility] Last Admin: 06/19/20 08:13 Dose: 0.8 mg Documented by: Trazodone HCl (Trazodone Hcl 50 Mg Tablet) 50 mg PO [facility] Last Admin: 06/18/20 21:35 Dose: 50 mg Documented by: Vitamin B Complex (Vitamin B Complex 1 Capsule) 1 cap PO DAILY [facility] Last Admin: 06/19/20 08:19 Dose: 1 cap Documented by: A/P Narrative A/P Narrative: Assessment: 70 year old male with history of oxygen dependent COPD (3-4 l/min at home), restrictive lung disease/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 Chest xray showed bilateral interstitial process on top of chronic fibrosis suggestive of infiltrate vs edema. Follow up CTA chest was negative for PE and overall improvement in diffuse bilateral alveolar infiltrates however there was a new air-fluid level within the largest bullae of the left lung apex conpatible with a developing infection. Antiotic was escalated from Ceftriaxone to Zosyn, Azithromycin continued. Clinically does not appear to be CHF, recent TTE ECHO was ok. Did not improved significantly after a trial of Lasix IV. COVID PCR and Influenza A/B PCR negative. MRSA screen negative. Required escalation of oxygen supplementation with HHFNC. #Acute on chronic hypoxic respiratory failure #Community acquired pneumonia w/ increased risk of MDRO #Restrictive lung disease/pulmonary fibrosis d/t asbestosis #Emphysema #Hx CAD #Htn #BPH #Guarded prognosis Plan: -Continue in PCU today w/ telemetry, HHFNC, pulse oximetry monitoring -Solumedrol, Duonebs Q6 hrs, Albuterol nebs prn-hold home COPD inhalers for now -Zosyn and Azithromycin -Oxygen supplementation-target 88-92% sats -Sputum gram stain and culture pending-moderate epithelial cells -Blood cultures-pending (NGTD) -Continue Atenolol, norvasc, losartan. -Continue ASA, atorvastatin, nitro SL. -Continue Flomax. -PT following -DVT ppx: Lovenox -Code status: DNR -Disposition: TBD, if he does not improve by tomorrow will recommend transfer to a higher level of care if he wishes. Time Spent With Patient Time: Total time spent is greater than 50% in coordination of care (as documented) at patient's floor/unit and/or counseling patient: QUALITY VTE Deep Vein Thrombosis/Pulmonary Embolism Present on Admission: No
[2020-06-19] MEDS: AZITHROMYCIN 500 MG in DEXTROSE 5% IN WATER 250 ML IV SCH (14:17)
[2020-06-19] MEDS: MONTELUKAST 10 MG TABLET PO SCH (20:51)
[2020-06-19] MEDS: ATORVASTATIN 20 MG TABLET PO SCH (20:52)
[2020-06-19] MEDS: traZODone HCL 50 MG TABLET PO SCH (20:52)
[2020-06-19] MEDS: MELATONIN 3 MG TABLET PO SCH (20:52)
[2020-06-20] MEDS: IPRATROPIUM/ALBUTEROL 3 ML AMPUL.NEB NEB SCH ×3 (01:36→13:20)
[2020-06-20] MEDS: 0.9 % SODIUM CHLORIDE 10 ML SYRINGE IV SCH (05:46)
[2020-06-20] MEDS: PIPERACILLIN SODIUM/TAZOBACTAM 4.5 GM in DEXTROSE 5% IN WATER 50 ML IV SCH (05:46)
--- NOTE | 2020-06-20 06:29 | XRay Report ---
CLINICAL INFORMATION: follow up hypoxic respiratory failure COMPARISON: 06/18/2020. FINDINGS: Moderate cardiomegaly is unchanged. Mediastinum is unremarkable. Severe COPD with large biapical bullae and interstitial fibrosis throughout both mid and lower lungs again noted. Superimposed infiltrates throughout the mid and lower lungs progressed since the comparison exam two days ago. No definite effusions. Pleural fibrosis in the right apex demonstrates long-term stability. IMPRESSION: Severe COPD and moderate underlying interstitial fibrosis. Superimposed infiltrates in the mid and lower lung, has progressed since yesterday's exam. Interpreted and Authenticated by: Ousmane Shields 06/20/20
[2020-06-20 06:37] LABS: Hematocrit 39.9 % (41.0-55.0); Hemoglobin 12.3 g/dL (13.5-16.5); Mean Cell Volume 92.8 fL (80.0-100.0); Mean Corpuscular HGB Conc 30.8 g/dL (31.0-36.0); Mean Platelet Volume 10.1 fL (7.4-10.4); Platelet Count 277 K/mcL (140-440); Red Cell Distribution Width 14.5 % (11.5-14.5); WBC 11.6 K/mcL (4.5-11.0)
[2020-06-20 07:21] LABS: ALT/SGPT 12 U/L (<40); AST/SGOT 13 U/L (<40); Albumin 2.9 gm/dL (3.2-5.2); Albumin/Globulin Ratio 0.8 (1.0-2.3); Alkaline Phosphatase 95 U/L (39-117); Bilirubin,Direct < 0.2 mg/dL (<0.3); Bilirubin,Total 0.3 mg/dL (0.1-1.0); Blood Urea Nitrogen 26 mg/dL (8-23); Calcium 8.5 mg/dL (8.6-10.4); Carbon Dioxide 35 mmol/L (22-30); Chloride 100 mmol/L (96-108); Globulin 3.8 gm/dL (2.2-3.7); Glomerular Filtration Rate 76; Glucose 153 mg/dL (70-105); Lactate Dehydrogenase 382 U/L (135-225); Phosphorous 4.4 mg/dL (2.5-4.5); Triglycerides 52 mg/dL (<150); Uric Acid 4.4 mg/dL (2.5-8.0)
[2020-06-20 08:52] LABS: Lymphocytes % 3 % (15-49); Metamyelocytes % 1 %; Monocytes % (Manual) 1 % (1-12); Platelet Estimate NORMAL (Normal); Polychromasia OCC (None Seen); RBC Morphology ABNORMAL (Normal); Segmented Neutrophils % 95 % (38-78); Toxic Granulation 1+ (None Seen)
[2020-06-20] MEDS ORDERED: FUROSEMIDE 40 MG/4 ML VIAL IV ONE (08:54)
[2020-06-20] MEDS ORDERED: VANCOMYCIN PER PHARMACY IV SCH (09:00)
[2020-06-20] MEDS: amLODIPine 5 MG TABLET PO SCH (09:12)
[2020-06-20] MEDS: LOSARTAN 50 MG TABLET PO SCH (09:12)
[2020-06-20] MEDS: AZITHROMYCIN 500 MG in DEXTROSE 5% IN WATER 250 ML IV SCH (09:12)
[2020-06-20] MEDS: ENOXAPARIN 40 MG/0.4 ML SYRINGE SQ SCH (09:13)
[2020-06-20] MEDS: ATENOLOL 50 MG TABLET PO SCH (09:13)
[2020-06-20] MEDS: ASPIRIN 81 MG TAB.CHEW PO SCH (09:13)
[2020-06-20] MEDS: TAMSULOSIN 0.4 MG CAPSULE PO SCH (09:13)
[2020-06-20] MEDS: methylPREDNISolone SOD SUCC 125 MG/2 ML VIAL IV SCH (09:13)
[2020-06-20] MEDS: ANORO ELLIPTA INH SCH (09:15)
[2020-06-20] MEDS: DOCUSATE SODIUM 100 MG CAPSULE PO SCH (09:15)
[2020-06-20] MEDS: POLYETHYLENE GLYCOL 3350 17 GM PACKET PO SCH (09:15)
[2020-06-20] MEDS: VITAMIN B COMPLEX 1 CAPSULE PO SCH (09:34)
[2020-06-20] MEDS ORDERED: VANCOMYCIN 1,500 MG in 0.9 % SODIUM CHLORIDE 500 ML IV SCH (10:00)
--- NOTE | 2020-06-20 11:55 | Internal Med Progress Note ---
SUBJECTIVE Subjective Patient information: Note initiated : 06/20/20 at 11:42 am Service Date, if different from initiated Date: [] Patient: Jed Dias 70 y/o M admitted on 06/17/20 for Shortness of breath. Chief Complaint: [] Interval history: Mr. 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 In the ED, the patient was found to be hypoxic and started on BiPAP. Vitals were remarkable for a fever 101.9 F, tachypnea and tachycardia. EKG is shows sinus tachycardia. Chest x-ray shows diffuse bilateral opacities, increased compared to baseline. Of note, the patient does have bilateral trace at baseline likely interstitial lung disease related to asbestosis. Routine labs did not reveal any leukocytosis, overall similar to prior lab results. Respiratory panel was negative, including Covid PCR, influenza A and B PCR, RSV PCR. Patient was given Solu-Medrol, ceftriaxone and doxycycline in the ED. By the time I evaluated the patient, he had improved however continues to desaturate quickly off BiPAP. The patient says that at baseline he requires 3 to 4 L oxygen via nasal canula. [facility] was [facility]. He says that he was feeling okay up until the day of hospital admission. We discussed the plan of care, most likely diagnosis the infectious process causing respiratory symptoms in the setting of severely compromised baseline lung function. We discussed CODE STATUS prior to admission, the patient wishes to be DNR. 06/17 Off BiPAP this morning and on nasal canula O2, feeling ok, able to work with PT. Fevers resolved, overall improvement. 06/18 Feels ok at rest but continues to require significantly more oxygen supplementation than baseline. CTA chest ordered-negative for PE however showed a new air fluid level in a large bullae consistent with a developing infection. Started on Zosyn, Ceftriaxone discontinued. Required escalating to HHFNC. Trial of lasix IV once. Transitioned to HHFNC in the evening. 06/19 Continues to requires HHFNC, desaturates with minimal activity. Discussed the patient's goals of care in light of this new oxygen requirement and not improving much with treatment. May need to transfer to the higher level of care for pulmonology evaluation if he does not start to improve by tomorrow. 06/20 Chest xray shows progression of infiltrates. Antibiotics escalated to Vancomycin, Meropenem, continued Azithromycin. Discussed transfer to a higher level of care again in light of worsening respiratory function. The patient decided he would like to transfer. [facility] currently does not have beds, call out to [facility]. Constitutional Vitals: Vital Signs Temp Pulse Resp BP Pulse Ox 98.5 F 92 H 38 H 163/93 94 06/20/20 08:00 06/19/20 19:10 06/20/20 10:38 06/20/20 10:00 06/20/20 10:38 Period Temp Pulse Resp BP Sys/Ford Pulse Ox Last 24 Hr 98.1 F-98.5 F 92-96 21-50 132-163/79-94 70-96 Intake and Output 06/19/20 06/20/20 06/20/20 21:59 05:59 13:59 Intake Total 550 235 0311 Output Total 571 909 0906 Balance -210 -600 -480 Weight 103.782 kg Intake & Output: Intake & Output 06/19/20 06/20/20 06/20/20 21:59 05:59 13:59 Intake Total 961 106 6846 Output Total 447 684 2745 Balance -210 -600 -480 Weight 103.782 kg Intake: IV 300 50 300 Zithromax 500 mg In Dextrose 5% 250 250 in Water 250 ml @ 250 mls/hr IV Q24H [facility] Rx#:[id number] Zosyn 4.5 gm In Dextrose 5% in 50 50 50 Water 50 ml @ 100 mls/hr IV Q6H [facility] Rx#:[id number] Oral 240 250 720 Output: Void Amount 882 132 1640 Other: Meal Dinner Breakfast Percent of Meal Consumed 100% 100% Feeding Ability Independent Urine Appearance Clear Clear Clear Urine Color Bright Yellow Bright Yellow Pale Urine Odor Normal Normal Stool Size Large Copious Moderate Stool Color Brown Brown Brown Stool Consistency Formed Soft Soft Loose Loose # Voids 1 # Bowel Movements 1 1 Additional findings Additional findings: Head: Atraumatic, normal inspection. Eyes: normal appearance, no scleral icterus. Neck: full ROM Respiratory: on HHFNC, tachypnea, patient appears to be in respiratory distress. Cardiovascular: normal rate and rhythm, S1, S2. GI/Abdominal: soft, nontender, no guarding. Extremities: full range of motion, nontender. Neurological: CN II-XII intact, intact motor, intact sensation. Psychiatric: normal mood. Skin: warm, normal color OBJ DATA Labs CBC & Chem 7: 06/20/20 05:32 06/20/20 05:33 Labs: Abnormal Lab Results 06/20/20 06/20/20 06/19/20 05:33 05:32 05:15 WBC 11.6 H 13.9 H RBC 4.30 L 4.13 L Hgb 12.3 L 12.0 L Hct 39.9 L 38.3 L POC Hct MCHC 30.8 L RDW 14.7 H Seg Neutrophils % 95 H 88 H Lymphocytes % 3 L 5 L WBC Morphology Abnormal A Toxic Granulation 1+ A RBC Morphology Abnormal A Polychromasia Occ A Hypochromasia Anisocytosis Potassium Carbon Dioxide 35 H Anion Gap 5.0 L POC BUN BUN 26 H Glucose 153 H POC Glucose Calcium 8.5 L POC WB Ioniz Calcium Phosphorus Alkaline Phosphatase Lactate Dehydrogenase 382 H Albumin 2.9 L Globulin 3.8 H Albumin/Globulin Ratio 0.8 L 06/19/20 06/18/20 06/18/20 05:15 11:55 05:00 WBC 16.6 H RBC 4.03 L Hgb 11.6 L Hct 39.6 L POC Hct 40 L MCHC 29.3 L RDW 14.6 H Seg Neutrophils % 89 H Lymphocytes % 6 L WBC Morphology Abnormal A Toxic Granulation 1+ A RBC Morphology Abnormal A Polychromasia Few A Hypochromasia 1+ A Anisocytosis 1+ A Potassium Carbon Dioxide 34 H Anion Gap 6.0 L POC BUN 26 H BUN 26 H Glucose 149 H POC Glucose 142 H Calcium 8.5 L POC WB Ioniz Calcium 1.14 L Phosphorus 4.9 H Alkaline Phosphatase Lactate Dehydrogenase 401 H Albumin 2.8 L Globulin 3.9 H Albumin/Globulin Ratio 0.7 L 06/18/20 05:00 WBC RBC Hgb Hct POC Hct MCHC RDW Seg Neutrophils % Lymphocytes % WBC Morphology Toxic Granulation RBC Morphology Polychromasia Hypochromasia Anisocytosis Potassium 5.6 H Carbon Dioxide Anion Gap POC BUN BUN 24 H Glucose 123 H POC Glucose Calcium POC WB Ioniz Calcium Phosphorus Alkaline Phosphatase 139 H Lactate Dehydrogenase 582 H Albumin 1.9 L Globulin 4.8 H Albumin/Globulin Ratio 0.4 L Meds: Medications Albuterol Sulfate (Albuterol Sulfate 2.5 Mg/3 Ml Nebulizer) 2.5 mg NEB Q2HP PRN PRN Reason: Shortness Of Breath Albuterol/Ipratropium (Ipratropium/Albuterol 3 Ml Ampul.Neb) 3 ml NEB Q6HRT [facility] Last Admin: 06/20/20 07:47 Dose: 3 ml Documented by: Amlodipine Besylate (Amlodipine 5 Mg Tablet) 5 mg PO DAILY [facility] Last Admin: 06/20/20 09:12 Dose: 5 mg Documented by: Aspirin (Aspirin 81 Mg Tab.Chew) 81 mg PO DAILY [facility] Last Admin: 06/20/20 09:13 Dose: 81 mg Documented by: Atenolol (Atenolol 50 Mg Tablet) 50 mg PO BID [facility] Last Admin: 06/20/20 09:13 Dose: 50 mg Documented by: Atorvastatin Calcium (Atorvastatin 20 Mg Tablet) 20 mg PO QHS [facility] Last Admin: 06/19/20 20:52 Dose: 20 mg Documented by: Docusate Sodium (Docusate Sodium 100 Mg Capsule) 100 mg PO BID [facility] Last Admin: 06/20/20 09:15 Dose: Not Given Documented by: Enoxaparin Sodium (Enoxaparin 40 Mg/0.4 Ml Syringe) 40 mg SQ DAILY [facility] Last Admin: 06/20/20 09:13 Dose: 40 mg Documented by: Azithromycin 500 mg/ Dextrose 250 mls @ 250 mls/hr IV Q24H [facility]; Protocol Stop: 06/20/20 14:59 Last Infusion: 06/20/20 10:15 Dose: Infused Documented by: Meropenem 1 gm/ Sodium (Chloride) 50 mls @ 100 mls/hr IV Q8H [facility]; Protocol Vancomycin HCl 1,500 mg/ (Sodium Chloride) 500 mls @ 333.3 mls/hr IV Q12H [facility] Last Admin: 06/20/20 10:44 Dose: 333.3 mls/hr Documented by: Lactulose (Lactulose 20 Gm/30 Ml Oral.Nona) 10 gm PO DAILYP PRN PRN Reason: Constipation Losartan Potassium (Losartan 50 Mg Tablet) 100 mg PO DAILY [facility] Last Admin: 06/20/20 09:12 Dose: 100 mg Documented by: Melatonin (Melatonin 3 Mg Tablet) 6 mg PO HS [facility] Last Admin: 06/19/20 20:52 Dose: 6 mg Documented by: Methylprednisolone Sodium Succinate (Methylprednisolone Sod Succ 125 Mg/2 Ml Vial) 62.5 mg IV Q12 [facility] Last Admin: 06/20/20 09:13 Dose: 62.5 mg Documented by: Montelukast Sodium (Montelukast 10 Mg Tablet) [address] [facility] Last Admin: 06/19/20 20:51 Dose: 10 mg Documented by: Nitroglycerin (Nitroglycerin 0.4 Mg Tab.Subl) 0.4 mg SL Q5M PRN PRN Reason: Chest Pain Ondansetron HCl (Ondansetron 4 Mg/2 Ml Vial) 4 mg IV Q4HP PRN; Protocol PRN Reason: Nausea And Vomiting Anoro Ellipta ( Umeclidinium- Vilanterol 62.5 Mcg- 25 Mcg/Actuation) Inhaler 1 dose INH DAILY [facility] Last Admin: 06/20/20 09:15 Dose: 1 dose Documented by: Polyethylene Glycol (Polyethylene Glycol 3350 17 Gm Packet) 17 gm PO QDAY [facility] Last Admin: 06/20/20 09:15 Dose: Not Given Documented by: Senna (Sennosides 1 Tablet) 2 tab PO HSP PRN PRN Reason: Constipation Sodium Chloride (0.9 % Sodium Chloride 10 Ml Syringe) 10 ml IV Q8 [facility] Last Admin: 06/20/20 05:46 Dose: 10 ml Documented by: Tamsulosin HCl (Tamsulosin 0.4 Mg Capsule) 0.8 mg PO QDAY [facility] Last Admin: 06/20/20 09:13 Dose: 0.8 mg Documented by: Trazodone HCl (Trazodone Hcl 50 Mg Tablet) [address] 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 Chest xray showed bilateral interstitial process on top of chronic fibrosis suggestive of infiltrate vs edema. Follow up CTA chest was negative for PE and overall improvement in diffuse bilateral alveolar infiltrates however there was a new air-fluid level within the largest bullae of the left lung apex conpatible with a developing infection. Initially the patient improved on antibiotics but then required progressively more oxygen therapy, eventually HHFNC. Antibitic treatm ent was escalated from Ceftriaxone and Azithromycin to Zosyn and Azithromycin then to Vancomycin, Meropenem, and Azithromycin. Clinically does not appear to be CHF, recent TTE ECHO was ok, and did not seem to improve after a trial of Lasix IV. COVID PCR and Influenza A/B PCR negative. MRSA screen negative but treated with Vancomycin anyway given clinical deterioration. Concern for developing ARDS vs lung abscess given CTA results. Gave another trial of Lasix IV. Goals of care discussed and transfer to a higher level of care reommended. The patient says he wants to remain DNR/DNI but would be interested in transfer to a higher level of care with pulmonology consult available. [facility] does not have a bed available. [facility] contacted for transfer. #Acute on chronic hypoxic respiratory failure: currently requiring HHFNC #Community acquired pneumonia w/ increased risk of MDRO #Restrictive lung disease/pulmonary fibrosis d/t asbestosis #Possible ARDS #Emphysema #Hx CAD #Htn #BPH #Guarded prognosis Plan: -Continue in PCU today w/ telemetry, HHFNC, pulse oximetry monitoring -Solumedrol, Duonebs Q6 hrs, Albuterol nebs prn-hold home COPD inhalers for now -Vancomycin, Meropenem, Azithromycin -Oxygen supplementation-target 88-92% sats -Sputum gram stain and culture-no organisms -Blood cultures-pending (NGTD) -Continue Atenolol, norvasc, losartan. -Continue ASA, atorvastatin, nitro SL. -Continue Flomax. -PT following -DVT ppx: Lovenox -Code status: DNR/DNI -Disposition: transfer to a higher level of care when a bed is available, possibly [facility] Time Spent With Patient Time: Total time spent is greater than 50% in coordination of care (as documented) at patient's floor/unit and/or counseling patient: QUALITY VTE Deep Vein Thrombosis/Pulmonary Embolism Present on Admission: No
[2020-06-20] MEDS ORDERED: MEROPENEM 1 GM in 0.9 % SODIUM CHLORIDE 50 ML IV SCH (12:00)
--- NOTE | 2020-06-20 13:49 | Transfer Summary ---
Discharge Provider Provider Patient information: Note initiated : 06/20/20 at 1:46 pm Service Date, if different from initiated Date: [] Patient: Jed Dias 70 y/o M admitted on 06/17/20 for Shortness of breath. Chief Complaint: [] Date of admission: 06/17/20 00:22 Discharge date: 06/20/20 Primary care physician: Irish Garcia Consults: 06/16/20 Consult to Physician [CONS] Stat Comment: Consulting Provider: Tom Haines Reason For Exam: Physician to Consult Discharge Meds Discharge Medications Home Medications Oxygen cylinder #1 ea 02/03/18 [Rx Confirmed 06/17/20 Last Taken Unknown] nitroglycerin 0.4 mg sublingual tablet 0.4 mg SUBLINGUAL DIRECTED tab 12/20/18 [History Confirmed 06/16/20 Last Taken 10/25/19] budesonide 0.5 mg/2 mL suspension for nebulization 0.5 mg INHALATION BID #120 ml 07/28/19 [Rx Confirmed 06/16/20 Last Taken 06/16/20] aspirin 81 mg tablet,delayed release 81 mg PO DAILY tab 04/15/20 [History Confirmed 06/17/20 Last Taken 06/16/20] atenolol 100 mg tablet 50 mg PO BID #180 tab 04/29/20 [Rx Confirmed 06/16/20 Last Taken 06/16/20] atorvastatin 20 mg tablet 20 mg PO QHS #90 tab 04/29/20 [Rx Confirmed 06/16/20 Last Taken 06/16/20] Anoro Ellipta 1 inh INHALATION QAM 05/06/20 [History Confirmed 06/16/20 Last Taken 06/16/20] amlodipine 5 mg PO QHS 05/06/20 [History Confirmed 06/17/20 Last Taken 06/16/20] losartan 100 mg PO QAM 05/06/20 [History Confirmed 06/16/20 Last Taken 06/16/20] tamsulosin [Flomax] 0.4 mg PO QDAY #30 cap 05/10/20 [Rx Confirmed 06/16/20 Last Taken 06/16/20] melatonin 5 mg tablet 10 mg PO HS tab 05/29/20 [History Confirmed 06/17/20 Last Taken 06/15/20] montelukast 10 mg tablet 10 mg PO QHS 05/29/20 [History Confirmed 06/17/20 Last Taken 06/16/20] trazodone 50 mg tablet 50 mg PO QHS 05/29/20 [History Confirmed 06/17/20 Last Taken 06/15/20] prednisone 10 mg PO QDAY 06/17/20 [History Confirmed 06/17/20 Last Taken Unknown] vitamin B complex [B Complex] 1 cap PO QDAY 06/17/20 [History Confirmed 06/17/20 Last Taken Unknown] zolpidem [Ambien] 10 mg PO HSP PRN 06/17/20 [History Confirmed 06/17/20 Last Taken Unknown] COURSE Hospital Course Hospital course: Mr. 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 In the ED, the patient was found to be hypoxic and started on BiPAP. Vitals were remarkable for a fever 101.9 F, tachypnea and tachycardia. EKG is shows sinus tachycardia. Chest x-ray shows diffuse bilateral opacities, increased compared to baseline. Of note, the patient does have bilateral trace at baseline likely interstitial lung disease related to asbestosis. Routine labs did not reveal any leukocytosis, overall similar to prior lab results. Respiratory panel was negative, including Covid PCR, influenza A and B PCR, RSV PCR. Patient was given Solu-Medrol, ceftriaxone and doxycycline in the ED. By the time I evaluated the patient, he had improved however continues to desaturate quickly off BiPAP. The patient says that at baseline he requires 3 to 4 L oxygen via nasal canula. He was recently discharged from a halfway facility where he was receiving rehab. He says that he was feeling okay up until the day of hospital admission. We discussed the plan of care, most likely diagnosis the infectious process causing respiratory symptoms in the setting of severely compromised baseline lung function. We discussed CODE STATUS prior to admission, the patient wishes to be DNR. 06/17 Off BiPAP this morning and on nasal canula O2, feeling ok, able to work with PT. Fevers resolved, overall improvement. 06/18 Feels ok at rest but continues to require significantly more oxygen supplementation than baseline. CTA chest ordered-negative for PE however showed a new air fluid level in a large bullae consistent with a developing infection. Started on Zosyn, Ceftriaxone discontinued. Required escalating to HHFNC. Trial of lasix IV once. Transitioned to HHFNC in the evening. 06/19 Continues to requires HHFNC, desaturates with minimal activity. Discussed the patient's goals of care in light of this new oxygen requirement and not improving much with treatment. May need to transfer to the higher level of care for pulmonology evaluation if he does not start to improve by tomorrow. 06/20 Chest xray shows progression of infiltrates. Antibiotics escalated to Vancomycin, Meropenem, continued Azithromycin. Discussed transfer to a higher level of care again in light of worsening respiratory function. The patient decided he would like to transfer. [facility] currently does not have beds, call out to [facility]. [place] was full and so case was discussed with [facility] hospitalist Dr. Hernandez who graciously accepted the patient's care. #Acute on chronic hypoxic respiratory failure: currently requiring HHFNC #Community acquired pneumonia w/ increased risk of MDRO #Restrictive lung disease/pulmonary fibrosis d/t asbestosis #Possible ARDS #Emphysema #Hx CAD #Htn #BPH #Guarded prognosis Discharge diagnosis: Acute on chronic hypoxic respite failure pneumonia COPD bronchiectasis ILD Secondary discharge diagnosis: Likely [place] history of CAD hypertension Time Spent with Patient Time attestation: Total time spent providing and/or coordinating discharge services: Time spent: Greater than 30 minutes EXAM Constitutional Vitals: Temp Pulse Resp BP Pulse Ox 98.4 F 88 30 H 118/86 92 06/20/20 12:01 06/20/20 13:32 06/20/20 13:32 06/20/20 12:01 06/20/20 13:32 Discharge Data Data Completed and Pending Labs on day of discharge: Labs from last 24 hours 06/20/20 06/20/20 05:33 05:32 WBC 11.6 H RBC 4.30 L Hgb 12.3 L Hct 39.9 L MCV 92.8 MCH 28.6 MCHC 30.8 L RDW 14.5 Plt Count 277 MPV 10.1 Seg Neutrophils % 95 H Lymphocytes % 3 L Monocytes % (Manual) 1 Metamyelocytes % 1 WBC Morphology Abnormal A Toxic Granulation 1+ A Platelet Estimate Normal RBC Morphology Abnormal A Polychromasia Occ A Sodium 140 Potassium 5.0 Chloride 100 Carbon Dioxide 35 H Anion Gap 5.0 L BUN 26 H Creatinine 1.0 GFR Calculation 76 Glucose 153 H Uric Acid 4.4 Calcium 8.5 L Phosphorus 4.4 Magnesium 2.1 Total Bilirubin 0.3 Direct Bilirubin < 0.2 GGT 17 AST 13 ALT 12 Alkaline Phosphatase 95 Lactate Dehydrogenase 382 H Total Protein 6.7 Albumin 2.9 L Globulin 3.8 H Albumin/Globulin Ratio 0.8 L Triglycerides 52 Preliminary micro results at discharge 06/16/20 20:46 Blood Culture - Preliminary Blood 06/16/20 20:40 Blood Culture - Preliminary Blood Discharge Plan Patient/Caregiver Discharge Instructions Activity: increase activity as tolerated Diet: Regular Diet Prescriptions: No Action (DME) Oxygen cylinder Qty: 1 RF: 12 budesonide 0.5 mg/2 mL suspension for nebulization 0.5 mg INHALATION BID Qty: 120 RF: 12 atorvastatin 20 mg tablet 20 mg PO QHS Qty: 90 RF: 3 atenolol 100 mg tablet 50 mg PO BID Qty: 180 RF: 4 nitroglycerin [Nitrostat] 0.4 mg tablet, sublingual 0.4 mg SUBLINGUAL DIRECTED RF: 0 aspirin [Adult Low Dose Aspirin] 81 mg tablet,delayed release (DR/EC) 81 mg PO DAILY RF: 0 trazodone 50 mg tablet 50 mg PO QHS RF: 0 melatonin 5 mg tablet 10 mg PO HS RF: 0 montelukast [Singulair] 10 mg tablet 10 mg PO QHS RF: 0 losartan 100 mg tablet 100 mg PO QAM RF: 0 Anoro Ellipta 62.5-25 mcg/actuation blister with device 1 inh INHALATION QAM RF: 0 amlodipine 5 mg tablet 5 mg PO QHS RF: 0 tamsulosin [Flomax] 0.4 mg capsule 0.4 mg PO QDAY Qty: 30 RF: 0 prednisone 10 mg Tablet 10 mg PO QDAY RF: 0 zolpidem [Ambien] 10 mg Tablet 10 mg PO HSP PRN (Reason: Insomnia) RF: 0 vitamin B complex [B Complex] Capsule 1 cap PO QDAY RF: 0 Follow Up Plan Follow up with: Irish Garcia ARNP [Primary Care Provider] - Patient Disposition: [facility] Prognosis: Serious Discharge Orders: Discharge Order (Routine); Ordered 06/20/20 Ordered By: Venkatesh Alex Kanooth QUALITY VTE Deep Vein Thrombosis/Pulmonary Embolism Present on Admission: No
== END 2020-06-20 16:30 | disposition short-term general hospital (02) | DRG 189 ==
LOC: ED 20:13 → ICU 06-17 00:20
PROVIDERS: ADMIT Internal Medicine; ATTEND Internal Medicine